=== PATIENT | female | born 1960 | race Caucasian/White ===

== ENCOUNTER 2016-11-24 17:11 | Inpatient (IN) | payer BC, OTHER ==
[~2016-11-24] VITALS: Ht 162.6 cm; Wt 104.2 kg
[~2016-11-24 17:11] MED LIST: DIOV80TA4 PO; FLON0.053; LEVO75TA3 PO; METO50CR PO; MONT10TA2 PO; NORC7.5T PO
[2016-11-24 17:23] VITALS: BP 79/51; PULSE 68; RESP 16; TEMP 97.4; O2SAT 98
[2016-11-24] MEDS ORDERED: SODIUM CHLOR 0.9% 1000 ML INJ 1,000 ML IV SCH (18:29)
[2016-11-24] MEDS ORDERED: ONDANSETRON HCL 4 MG/2 ML VIAL IVP ONE (18:30)
[2016-11-24] MEDS ORDERED: KETOROLAC TROMETHAMINE 30 MG/ML (IVP) VIAL IV PUSH ONE (18:30)
[2016-11-24] MEDS ORDERED: SODIUM CHLORIDE 0.9% FLUSH 10 ML FLUSH IV FLUSH PRN ×2 (18:30→23:00)
[2016-11-24 18:37] VITALS: O2SAT 96
[2016-11-24] MEDS ORDERED: NIFE30TA61 PO (18:46)
[2016-11-24] MEDS ORDERED: METO100T PO (18:46)
[2016-11-24] MEDS ORDERED: LEVE500T8 PO (18:46)
[2016-11-24] MEDS ORDERED: VALS1TAB65 PO (18:46)
[2016-11-24] MEDS ORDERED: LEVO112T2 PO (18:46)
[2016-11-24] MEDS ORDERED: CLON0.5T PO (18:46)
[2016-11-24] MEDS ORDERED: MONT10TA4 PO (18:46)
[2016-11-24 19:43] VITALS: BP 86/57; PULSE 64; RESP 18; O2SAT 98
[2016-11-24 20:06] LABS: AUTOMATED NEUTROPHIL # 6.4 TH/MM3 (1.8-7.7); BASOPHIL # 0.3 TH/MM3 (0-0.2); BASOPHIL % 3.3 % (0.0-2.0); EOSINOPHIL # 0.1 TH/MM3 (0-0.4); EOSINOPHIL % 0.9 % (0.0-4.0); HEMATOCRIT 33.3 % (35.0-46.0); LYMPH % 16.3 % (9.0-44.0); LYMPHOCYTE # 1.5 TH/MM3 (1.0-4.8); MEAN CELL VOLUME 96.5 FL (80.0-100.0); MEAN CORPUSCULAR HEMOGLOBIN 34.2 PG (27.0-34.0); MEAN CORPUSCULAR HGB CONC 35.4 % (32.0-36.0); MONO % 10.7 % (0.0-8.0); NEUT % 68.8 % (16.0-70.0); PLATELET COUNT 363 TH/MM3 (150-450); RED BLOOD COUNT 3.44 MIL/MM3 (4.00-5.30); RED CELL DISTRIBUTION WIDTH 14.8 % (11.6-17.2); WHITE BLOOD COUNT 9.3 TH/MM3 (4.0-11.0)
[2016-11-24 20:07] LABS: APTT (PATIENT) 23.5 SEC (24.3-30.1); HEMO FLAGS DIFF FINAL; PROTHROMBIN TIME - PATIENT 11.2 SEC (9.8-11.6)
[2016-11-24] MEDS ORDERED: ONDANSETRON HCL 4 MG/2 ML VIAL IV PUSH ONE (20:15)
[2016-11-24 20:47] VITALS: BP 95/65; PULSE 63; RESP 18; TEMP 97.7; O2SAT 100
[2016-11-24] MEDS ORDERED: SODIUM CHLOR 0.9% 1000 ML INJ 1,000 ML IV ONE (21:30)
--- NOTE | 2016-11-24 21:35 | RADRPT ---
EXAM DATE/TIME: 11/24/2016 21:05 [facility] COMPARISON: No previous studies available for comparison. INDICATIONS : Trauma to head three days ago. Fall. RADIATION DOSE: 59.63 CTDIvol (mGy) MEDICAL HISTORY : Hypertension. SURGICAL HISTORY : Appendectomy. Cholecystectomy.Tubal ligation.Hysterectomy. ENCOUNTER: Initial ACUITY: 3 days PAIN SCALE: 7/10 LOCATION: Bilateral occipital TECHNIQUE: Multiple contiguous axial images were obtained of the head. Using automated exposure control and adj ustment of the mA and/or kV according to patient size, radiation dose was kept as low as reasonably a chievable to obtain optimal diagnostic quality images. DICOM format image data is available electro nically for review and comparison. FINDINGS: CEREBRUM: The ventricles are normal for age. No evidence of midline shift, mass lesion, hemorrhage or acute in farction. No extra-axial fluid collections are seen. POSTERIOR FOSSA: The cerebellum and brainstem are intact. The 4th ventricle is midline. The cerebellopontine angle i s unremarkable. EXTRACRANIAL: The visualized portion of the orbits is intact. SKULL: The calvaria is intact. No evidence of skull fracture. CONCLUSION: Normal examination for a patient of this age. Rene Hanson MD on November 24, 2016 at 21:32 Board Certified Radiologist. This report was verified electronically.
[2016-11-24 21:39] VITALS: BP 98/58; PULSE 62; RESP 19; O2SAT 97
[2016-11-24 21:41] LABS: ALKALINE PHOSPHATASE 41 U/L (45-117); ALT (GPT) 86 U/L (10-53); ANION GAP 17 MEQ/L (5-15); AST (GOT) 62 U/L (15-37); BICARBONATE 16.6 MEQ/L (21.0-32.0); BLOOD UREA NITROGEN 14 MG/DL (7-18); CHLORIDE 80 MEQ/L (98-107); GLOMERULAR FILTRATION RATE 43 ML/MIN (>89); POTASSIUM 4.7 MEQ/L (3.5-5.1)
--- NOTE | 2016-11-24 21:43 | RADRPT ---
EXAM DATE/TIME: 11/24/2016 21:05 [facility] COMPARISON: No previous studies available for comparison. INDICATIONS : Trauma. Neck pain post fall three days ago. RADIATION DOSE: 26.43 CTDIvol (mGy) MEDICAL HISTORY : Hypertension. SURGICAL HISTORY : Tubal ligation. Appendectomy.Cholecystectomy.Hysterectomy. ENCOUNTER: Initial ACUITY: 3 days PAIN SCALE: 7/10 LOCATION: Bilateral neck TECHNIQUE: Volumetric scanning of the cervical spine was performed. Multiplanar reconstructions in the sagittal, coronal and oblique axial planes were performed. Using automated exposure control and adjustment o f the mA and/or kV according to patient size, radiation dose was kept as low as reasonably achievable to obtain optimal diagnostic quality images. DICOM format image data is available electronically f or review and comparison. FINDINGS: VERTEBRAE: Normal vertebral body height. ALIGNMENT: No evidence of subluxation. C2-C3: The bony spinal canal is normal in size. No evidence of disc bulge or herniation. The neural forami na are bilaterally patent. C3-C4: The bony spinal canal is normal in size. No evidence of disc bulge or herniation. The neural forami na are bilaterally patent. C4-C5: The bony spinal canal is normal in size. No evidence of disc bulge or herniation. The neural forami na are bilaterally patent. C5-C6: The bony spinal canal is normal in size. No evidence of disc bulge or herniation. The neural forami na are bilaterally patent. C6-C7: The bony spinal canal is normal in size. No evidence of disc bulge or herniation. The neural forami na are bilaterally patent. C7-T1: The bony spinal canal is normal in size. No evidence of disc bulge or herniation. The neural forami na are bilaterally patent. CONCLUSION: 1. No acute findings. Rene Hanson MD on November 24, 2016 at 21:39 Board Certified Radiologist. This report was verified electronically.
[2016-11-24 21:55] LABS: SODIUM (NA) 114 MEQ/L (136-145)
--- NOTE | 2016-11-24 22:09 | RADRPT ---
EXAM DATE/TIME: 11/24/2016 21:11 [facility] COMPARISON: No previous studies available for comparison. INDICATIONS : Trauma. Upper back pain post fall three days ago. RADIATION DOSE: 43.92 CTDIvol (mGy) ; Combined studies - Thoracic Spine/Lumbar Spine MEDICAL HISTORY : Hypertension. SURGICAL HISTORY : Appendectomy. Cholecystectomy.Hysterectomy. ENCOUNTER: Initial ACUITY: 3 days PAIN SCALE: 7/10 LOCATION: Bilateral upper back TECHNIQUE: Volumetric scanning of the thoracic spine was performed. Multiplanar reconstructions in the sagittal , coronal and oblique axial planes were performed. Using automated exposure control and adjustment o f the mA and/or kV according to patient size, radiation dose was kept as low as reasonably achievable to obtain optimal diagnostic quality images. DICOM format image data is available electronically f or review and comparison. FINDINGS: The vertebral bodies of the thoracic spine are in normal alignment without evidence of subluxation. Vertebral body height is maintained. No fractures are seen. T1-T2: Normal. T2-T3: The thecal sac has a normal diameter. No evidence of disc bulge or protrusion. T3-T4: The thecal sac has a normal diameter. No evidence of disc bulge or protrusion. T4-T5: The thecal sac has a normal diameter. No evidence of disc bulge or protrusion. T5-T6: The thecal sac has a normal diameter. No evidence of disc bulge or protrusion. T6-T7: The thecal sac has a normal diameter. No evidence of disc bulge or protrusion. T7-T8: The thecal sac has a normal diameter. No evidence of disc bulge or protrusion. T8-T9: The thecal sac has a normal diameter. No evidence of disc bulge or protrusion. T9-T10: The thecal sac has a normal diameter. No evidence of disc bulge or protrusion. T10-T11: The thecal sac has a normal diameter. No evidence of disc bulge or protrusion. T11-T12: The thecal sac has a normal diameter. No evidence of disc bulge or protrusion. T12-L1: The thecal sac has a normal diameter. No evidence of disc bulge or protrusion. CONCLUSION: 1. Mild degenerative disc disease. No acute bony abnormality. No canal stenosis. Rene Hanson MD on November 24, 2016 at 22:06 Board Certified Radiologist. This report was verified electronically.
--- NOTE | 2016-11-24 22:19 | RADRPT ---
EXAM DATE/TIME: 11/24/2016 21:11 [facility] COMPARISON: No previous studies available for comparison. INDICATIONS : Trauma. Lower back pain post fall three days ago. RADIATION DOSE: 43.92 CTDIvol (mGy) ; Combined studies - Thoracic Spine/Lumbar Spine MEDICAL HISTORY : Hypertension. SURGICAL HISTORY : Appendectomy. Cholecystectomy.Hysterectomy. ENCOUNTER: Initial ACUITY: 3 days PAIN SCALE: 7/10 LOCATION: Bilateral lower back TECHNIQUE: Volumetric scanning of the lumbar spine was performed. Multiplanar reconstructions in the sagittal, coronal and oblique axial planes were performed. Using automated exposure control and adjustment of the mA and/or kV according to patient size, radiation dose was kept as low as reasonably achievable t o obtain optimal diagnostic quality images. DICOM format image data is available electronically for review and comparison. FINDINGS: There is no acute fracture or spondylolisthesis. No significant abnormality in L1, L2 and L3-4. At L4-5 is a broad-based posterior disc protrusion and facet arthropathy, worse on the left side with a mild stenosis of the lateral recesses, left greater than right and foraminal stenosis, left greate r than right. At L5-S1 there is a mild posterior disc bulge or protrusion. No significant stenosis. CONCLUSION: 1. At L4-5 there is a broad-based posterior disc protrusion, worse on the left side with lateral rece ss stenosis and foraminal stenosis, left greater than right. Vacuum phenomenon present at the disc in terspace. No acute fracture or spondylolisthesis Rene Hanson MD on November 24, 2016 at 22:14 Board Certified Radiologist. This report was verified electronically.
--- NOTE | 2016-11-24 22:28 | PD ---
HPI Chief Complaint: Fall Time Seen by Provider: 18:21 Travel History International Travel<30 days: No Contact w/Intl Traveler<30days: No Traveled to known affect area: No History of Present Illness HPI Patient is a 56 year old female who comes in after a fall over the weekend. She says that her legs have been weak since last . She says that Wednesday she was trying to get up from the toilet when her legs gave out and she fell backwards and hit her head. She says she has pain all over. She thinks she passed out after hitting her head. She denies chest pain or SOB. She says she has had nausea and some vomiting. She denies any abdominal pain. She says she feels like she is likely dehydrated. She admits to drinking 2-3 drinks daily. PFSH Past Medical History Hx Anticoagulant Therapy: No Asthma: Yes Anxiety: Yes Cardiovascular Problems: Yes (on b/p meds) High Cholesterol: Yes (USED TO BE ON MEDICINE BUT MD STOPPED IT) Hypertension: Yes Respiratory: Yes (asthma) ?: Not Menopausal: Yes Tubal Ligation: Yes Past Surgical History Abdominal Surgery: Yes ("FIXED A BLOCKAGE IN MY INTESTINE") Appendectomy: Yes Cholecystectomy: Yes Genitourinary Surgery: Yes ("KIDNEYS TACKED UP WHEN I WAS A KID") Hysterectomy: Yes Other Surgery: Yes (SINUS SURGERY) Social History Alcohol Use: Yes (DAILY 2 DRINKS) Tobacco Use: No (QUIT 30 YEARS ) Substance Use: No Allergies-Medications (Allergen,Severity, Reaction): Coded Allergies: Enalapril (Verified Allergy, Severe, Swelling, 11/24/16) Latex (Verified Allergy, Severe, Swelling, 11/24/16) Lidocaine (Verified Allergy, Severe, states blue lips and chest pressure, 11/24/16) Morphine (Verified Allergy, Severe, PANIC ATTACK, 11/24/16) Penicillin (Verified Allergy, Severe, FACIAL SWELLING, 11/24/16) Reported Meds & Prescriptions Reported Meds & Active Scripts Active Reported Levetiracetam 500 Mg Tab 500 Mg PO TID Valsartan 160 Mg Tab 160 Mg PO DAILY Metoprolol Tartrate 100 Mg Tab 100 Mg PO BID Montelukast (Montelukast Sodium) 10 Mg Tab 10 Mg PO HS Levothyroxine (Levothyroxine Sodium) 112 Mcg Tab 112 Mcg PO DAILY Clonazepam 0.5 Mg Tab 0.5 Mg PO BID Nifedipine ER 24 HR (Nifedipine) 30 Mg Tab 30 Mg PO DAILY Review of Systems Except as stated in HPI: all other systems reviewed are Neg General / Constitutional: No: Fever, Chills Eyes: No: Blurred Vision HENT: Positive: Headaches Cardiovascular: No: Chest Pain or Discomfort Respiratory: No: Shortness of Breath Gastrointestinal: Positive: Nausea, Vomiting, No: Abdominal Pain Genitourinary: No: Dysuria, Incontinence Musculoskeletal: Positive: Pain, No: Edema Skin: No Rash, No Change in Pigmentation Neurologic: Positive: Weakness, No: Sensory Disturbance Physical Exam Narrative GENERAL: Awake and alert, in no acute distress. SKIN: Focused skin assessment warm/dry. HEAD: Atraumatic. Normocephalic. EYES: Pupils equal and round and reactive. No scleral icterus. Extraocular movements intact. ENT: No nasal bleeding or discharge. Mucous membranes pink and moist. NECK: Trachea midline. No JVD. CARDIOVASCULAR: Regular rate and rhythm. No murmur appreciated. RESPIRATORY: No accessory muscle use. Clear to auscultation. Breath sounds equal bilaterally. GASTROINTESTINAL: Abdomen soft, non-tender, nondistended. MUSCULOSKELETAL: No obvious deformities. No clubbing. No cyanosis. No edema. Tender to palpation of the entire spine. No step-off. NEUROLOGICAL: Awake and alert. No obvious cranial nerve deficits. Lower extremities with decreased strength bilaterally. Normal speech. No saddle anesthesia. PSYCHIATRIC: Appropriate mood and affect; insight and judgment normal. Data Data Last Documented VS Vital Signs Date Time Temp Pulse Resp B/P Pulse Ox O2 Delivery O2 Flow Rate FiO2 11/24/16 20:47 97.7 63 18 95/65 100 Room Air Orders Complete Blood Count With Diff (11/24/16 18:29) Comprehensive Metabolic Panel (11/24/16 18:29) Lipase (11/24/16 18:29) Prothrombin Time / Inr (Pt) (11/24/16 18:) Act Partial Throm Time (Ptt) (11/24/16 18:29) Urinalysis - C+S If Indicated (11/24/16 18:29) Ua Includes Microscopic (11/24/16 18:29) Iv Access Insert/Monitor (11/24/16 18:29) Ecg Monitoring (11/24/16 18:29) Oximetry (11/24/16 18:29) Ondansetron Inj (Zofran Inj) (11/24/16 18:30) Sodium Chlor 0.9% 1000 Ml Inj (Ns 1000 M (11/24/16 18:29) Sodium Chloride 0.9% Flush (Ns Flush) (11/24/16 18:30) Ct Brain W/O Iv Contrast(Rout) (11/24/16 ) Ct Cerv Spine W/O Contrast (11/24/16 ) Ct Thor Spine W/O Contrast (11/24/16 ) Ct Lumb Spine W/O Contrast (11/24/16 ) Alcohol (Ethanol) (11/24/16 18:29) Electrocardiogram (11/24/16 ) Troponin I (11/24/16 18:29) Ketorolac Inj (Toradol Inj) (11/24/16 18:30) Ondansetron Inj (Zofran Inj) (11/24/16 20:15) Sodium Chlor 0.9% 1000 Ml Inj (Ns 1000 M (11/24/16 21:30) Labs Laboratory Tests Test 11/24/16 11/24/16 19:43 20:57 White Blood Count 9.3 TH/MM3 Red Blood Count 3.44 MIL/MM3 Hemoglobin 11.8 GM/DL Hematocrit 33.3 % Mean Corpuscular Volume 96.5 FL Mean Corpuscular Hemoglobin 34.2 PG Mean Corpuscular Hemoglobin 35.4 % Concent Red Cell Distribution Width 14.8 % Platelet Count 363 TH/MM3 Mean Platelet Volume 9.5 FL Neutrophils (%) (Auto) 68.8 % Lymphocytes (%) (Auto) 16.3 % Monocytes (%) (Auto) 10.7 % Eosinophils (%) (Auto) 0.9 % Basophils (%) (Auto) 3.3 % Neutrophils # (Auto) 6.4 TH/MM3 Lymphocytes # (Auto) 1.5 TH/MM3 Monocytes # (Auto) 1.0 TH/MM3 Eosinophils # (Auto) 0.1 TH/MM3 Basophils # (Auto) 0.3 TH/MM3 CBC Comment DIFF FINAL Differential Comment Prothrombin Time 11.2 SEC Prothromb Time International 1.0 RATIO Ratio Activated Partial 23.5 SEC Thromboplast Time Sodium Level 114 MEQ/L Potassium Level 4.7 MEQ/L Chloride Level 80 MEQ/L Carbon Dioxide Level 16.6 MEQ/L Anion Gap 17 MEQ/L Blood Urea Nitrogen 14 MG/DL Creatinine 1.30 MG/DL Estimat Glomerular Filtration 43 ML/MIN Rate Random Glucose 90 MG/DL Calcium Level 8.9 MG/DL Total Bilirubin 1.0 MG/DL Aspartate Amino Transf 62 U/L (AST/SGOT) Alanine Aminotransferase 86 U/L (ALT/SGPT) Alkaline Phosphatase 41 U/L Troponin I LESS THAN 0.02 NG/ML Total Protein 6.4 GM/DL Albumin 3.5 GM/DL Lipase 750 U/L Ethyl Alcohol Level 38 MG/DL [facility] Medical Decision Making Medical Screen Exam Complete: Yes Emergency Medical Condition: Yes Medical Record Reviewed: Yes Interpretation(s) ECG shows normal sinus rhythm at 60 with first-degree AV block, no ST elevation or depression. Differential Diagnosis ICH versus cervical spine fracture versus thoracic spine fracture versus lumbar spine fracture versus dehydration versus electrolyte abnormality versus ACS Narrative Course Patient is a 56-year-old female comes in after a fall complaining of pain all over. Exam shows weakness in her bilateral lower extremities. IV established, labs sent. Labs show a sodium of 114 as well as a lipase of 750. Patient was given 2 L of normal saline. Given Toradol for pain as well as Zofran. Patient came in with a low blood pressure, she reports that it is always low and due to a seizure disorder she was placed on multiple blood pressure medications to keep her blood pressure low. Blood pressure did improve after IV fluids. CT of the head, C-spine, thoracic spine, lumbar spine show no acute abnormalities, no fracture. There is a disc protrusion at L5. Last 24 hours Impressions [address] Spine CT 11/24/16 0000 Signed Impressions: Service Date/Time: Thursday, November 24, 2016 21:11 - CONCLUSION: 1. Mild degenerative disc disease. No acute bony abnormality. No canal stenosis. Rene Hanson MD Lumbar Spine CT 11/24/16 0000 Signed Impressions: Service Date/Time: Thursday, November 24, 2016 21:11 - CONCLUSION: 1. At L4-5 there is a broad-based posterior disc protrusion, worse on the left side with lateral recess stenosis and foraminal stenosis, left greater than right. Vacuum phenomenon present at the disc interspace. No acute fracture or spondylolisthesis Rene Hanson MD Head CT 11/24/16 0000 Signed Impressions: Service Date/Time: Thursday, November 24, 2016 21:05 - CONCLUSION: Normal examination for a patient of this age. Rene Hanson MD Cervical Spine CT 11/24/16 0000 Signed Impressions: Service Date/Time: Thursday, November 24, 2016 21:05 - CONCLUSION: 1. No acute findings. Rene Hanson MD Patient will be admitted for management of her hyponatremia as well has pancreatitis. Diagnosis Primary Impression: Hyponatremia Additional Impressions: Weakness Pancreatitis Qualified Code: K85.90 - Acute pancreatitis, unspecified complication status, unspecified pancreatitis type Admitting Information Admitting Physician Requests: Admit Condition: Stable Jenni Hemphill MD Nov 24, 2016 22:28
[2016-11-24 22:43] VITALS: BP 89/70; PULSE 68; RESP 20; O2SAT 96
[2016-11-24] MEDS ORDERED: ACETAMINOPHEN/HYDROcodone 325 MG/5 MG TAB PO ONE (22:45)
[2016-11-24] MEDS ORDERED: NALOXONE HCL 0.4 MG/ML AMP IV PRN (23:00)
[2016-11-25] VITALS (8 sets, daily range): BP systolic 80–115; BP diastolic 49–71; PULSE 60–82; RESP 18–20; TEMP 97.4–99.2; O2SAT 94–99
[2016-11-25] MEDS: ONDANSETRON HCL 4 MG/2 ML VIAL IV PUSH PRN ×3 (04:52→18:11)
[2016-11-25] MEDS: SODIUM CHLOR 0.9% 1000 ML INJ 1,000 ML IV SCH ×3 (04:52→17:00)
[2016-11-25 05:18] LABS: AUTOMATED NEUTROPHIL # 6.8 TH/MM3 (1.8-7.7); BASOPHIL # 0.3 TH/MM3 (0-0.2); BASOPHIL % 3.5 % (0.0-2.0); EOSINOPHIL % 0.3 % (0.0-4.0); LYMPH % 9.9 % (9.0-44.0); LYMPHOCYTE # 0.9 TH/MM3 (1.0-4.8); MEAN CORPUSCULAR HEMOGLOBIN 32.9 PG (27.0-34.0); MEAN CORPUSCULAR HGB CONC 33.2 % (32.0-36.0); MONO % 8.6 % (0.0-8.0); NEUT % 77.7 % (16.0-70.0); PLATELET COUNT 240 TH/MM3 (150-450); RED BLOOD COUNT 3.54 MIL/MM3 (4.00-5.30); WHITE BLOOD COUNT 8.7 TH/MM3 (4.0-11.0)
[2016-11-25 05:20] LABS: BICARBONATE 19.4 MEQ/L (21.0-32.0); POTASSIUM 4.9 MEQ/L (3.5-5.1)
[2016-11-25 05:29] LABS: HEMO FLAGS DIFF FINAL
[2016-11-25] MEDS: SODIUM CHLORIDE 0.9% FLUSH 10 ML FLUSH IV FLUSH SCH ×2 (08:17→21:00)
--- NOTE | 2016-11-25 08:25 | EKG ---
Date Performed: 11/24/2016 Time Performed: 19:45:32 PTAGE: 56 years EKG: Sinus rhythm WITH FIRST DEGREE AV BLOCK LOW QRS VOLTAGE IN PRECORDIAL LEADS PATTERN CONSISTENT WITH PULMONARY DIS EASE INFERIOR MYOCARDIAL INFARCTION ABNORMAL ECG NO PREVIOUS TRACING DOCTOR: Humberto Khan Interpretating Date/Time 11/25/2016 08:23:39
[2016-11-25] MEDS: LEVOTHYROXINE SODIUM 112 MCG TAB PO SCH (12:12)
[2016-11-25] MEDS: levETIRAcetam 500 MG TAB PO SCH ×2 (12:12→17:00)
[2016-11-25 13:00] LABS: BICARBONATE 17.4 MEQ/L (21.0-32.0); POTASSIUM 4.6 MEQ/L (3.5-5.1)
[2016-11-25] MEDS ORDERED: ALBUTEROL SULFATE 90 MCG/ACT HFA 8 GM INHALER INH PRN (13:30)
--- NOTE | 2016-11-25 13:40 | HHI.HP ---
[facility] Service [facility] Primary Care Physician James Killian MD Admission Diagnosis hyponatremia, pancreatitis Diagnoses: Chief Complaint: Weakness Travel History International Travel<30 Days: No Contact w/Intl Traveler <30 Da: No Traveled to Known Affected Are: No History of Present Illness Patient is a 56-year-old female with a known history of alcohol dependency. Patient did come in after a fall and unable to get up. She was very weak and her legs haven't given out. She is assisting one on since and she has had increased pain. She did have increased alcohol intake over the last several days from her baseline of several drinks of vodka. She did have images done in the emergency room which showed degenerative thoracic and lumbar disease. CT of the head and cervical spine were normal. There are no acute fractures. Patient was found to also have hyponatremia. She has a history of seizures the last being 2 years ago. Alcohol level here was 38. She is hypotensive. She admits poor oral intake of food and other nutrition in lieu of alcohol the last several days. Patient is admitted to the hospital for further evaluation Review of Systems Constitutional: DENIES: Diaphoretic episodes, Fatigue, Fever, Weight gain, Weight loss, Chills, Dizziness, Change in appetite, Night Sweats Endocrine: DENIES: Abnorml menstrual pattern, Heat/cold intolerance, Polydipsia , Polyuria, Polyphagia Eyes: DENIES: Blurred vision, Diplopia, Eye inflammation, Eye pain, Vision loss , Photosensitivity, Double Vision Ears, nose, mouth, throat: DENIES: Tinnitus, Hearing loss, Vertigo, Nasal discharge, Oral lesions, Throat pain, Hoarseness, Ear Pain, Running Nose, Epistaxis, Sinus Pain, Toothache, Odynophagia Respiratory: DENIES: Apneas, Cough, Snoring, Wheezing, Hemoptysis, Sputum production, Shortness of breath Cardiovascular: DENIES: Chest pain, Palpitations, Syncope, Dyspnea on Exertion , PND, Lower Extremity Edema, Orthopnea, Claudication Gastrointestinal: DENIES: Abdominal pain, Black stools, Bloody stools, Constipation, Diarrhea, Nausea, Vomiting, Difficulty Swallowing, Anorexia Genitourinary: DENIES: Abnormal vaginal bleeding, Dysmenorrhea, Dyspareunia, Sexual dysfunction, Urinary frequency, Urinary incontinence, Urgency, Hematuria , Dysuria, Nocturia, Vaginal discharge Musculoskeletal: DENIES: Joint pain, Muscle aches, Stiffness, Joint Swelling, Back pain, Neck pain Integumentary: DENIES: Abnormal pigmentation, Pruritus, Rash, Nail changes, Breast masses, Breast skin changes, Nipple discharge Hematologic/lymphatic: DENIES: Bruising, Lymphadenopathy Immunologic/allergic: DENIES: Eczema, Urticaria Neurologic: COMPLAINS OF: Abnormal gait, Tremor, Poor Balance, DENIES: Headache, Localized weakness, Paresthesias, Seizures, Speech Problems Psychiatric: COMPLAINS OF: Anxiety, DENIES: Confusion, Mood changes, Depression, Hallucinations, Agitation, Suicidal Ideation, Homicidal Ideation, Delusions Past Family Social History Past Medical History Seizure Hypertension Asthma Anxiety Past Surgical History Intestinal surgery, sinus surgery, cholecystectomy, hysterectomy Reported Medications Reviewed in the medical record, also takes a Ventolin inhaler Allergies: Coded Allergies: Enalapril (Verified Allergy, Severe, Swelling, 11/24/16) Latex (Verified Allergy, Severe, Swelling, 11/24/16) Lidocaine (Verified Allergy, Severe, states blue lips and chest pressure, 11/24/16) Morphine (Verified Allergy, Severe, PANIC ATTACK, 11/24/16) Penicillin (Verified Allergy, Severe, FACIAL SWELLING, 11/24/16) Active Ordered Medications Reviewed in the medical record Family History Father from colon cancer Mother is alive and well Social History Patient denies tobacco, drinks 3 or 4 whiskey and vodka drinks daily Physical Exam Vital Signs Vital Signs Date Time Temp Pulse Resp B/P Pulse Ox O2 Delivery O2 Flow Rate FiO2 11/25/16 12:00 97.7 78 20 97/53 96 11/25/16 09:03 97.5 81 18 114/65 98 11/25/16 08:15 94 Room Air 11/25/16 07:21 94 Room Air 11/25/16 07:21 98.2 76 18 106/64 94 Room Air 11/25/16 04:50 99.2 72 18 115/71 96 Room Air 11/25/16 00:35 60 18 82/49 98 Room Air 11/24/16 22:43 68 20 89/70 96 Room Air 11/24/16 21:39 62 19 98/58 97 Room Air 11/24/16 20:47 97.7 63 18 95/65 100 Room Air 11/24/16 19:43 64 18 86/57 98 Room Air 11/24/16 18:37 96 Room Air 11/24/16 17:23 97.4 68 16 79/51 98 Physical Exam GENERAL: This is a well-nourished, well-developed patient, weak SKIN: No rashes, ecchymoses or lesions. Cool and dry. HEAD: Atraumatic. Normocephalic. No temporal or scalp tenderness. EYES: Pupils equal round and reactive. Extraocular motions intact. No scleral icterus. No injection or drainage. ENT: Nose without bleeding, purulent drainage or septal hematoma. Throat without erythema, tonsillar hypertrophy or exudate. Uvula midline. Airway patent. NECK: Trachea midline. No JVD or lymphadenopathy. Supple, nontender, no meningeal signs. CARDIOVASCULAR: Regular rate and rhythm without murmurs, gallops, or rubs. RESPIRATORY: Clear to auscultation. Breath sounds equal bilaterally. No wheezes , rales, or rhonchi. GASTROINTESTINAL: Abdomen soft, non-tender, nondistended. No hepato-splenomegaly , or palpable masses. No guarding. MUSCULOSKELETAL: Extremities without clubbing, cyanosis, or edema. No joint tenderness, effusion, or edema noted. No calf tenderness. Negative Homans sign bilaterally. NEUROLOGICAL: Awake and alert. Cranial nerves II through XII intact. Motor and sensory grossly within normal limits. 3 out of 5 muscle strength in all muscle groups. Normal speech. Laboratory Laboratory Tests Test 11/24/16 11/24/16 11/25/16 11/25/16 19:43 20:57 04:45 12:15 White Blood Count 9.3 8.7 Red Blood Count 3.44 3.54 Hemoglobin 11.8 11.6 Hematocrit 33.3 35.0 Mean Corpuscular Volume 96.5 99.0 Mean Corpuscular Hemoglobin 34.2 32.9 Mean Corpuscular Hemoglobin 35.4 33.2 Concent Red Cell Distribution Width 14.8 14.0 Platelet Count 363 240 Mean Platelet Volume 9.5 7.8 Neutrophils (%) (Auto) 68.8 77.7 Lymphocytes (%) (Auto) 16.3 9.9 Monocytes (%) (Auto) 10.7 8.6 Eosinophils (%) (Auto) 0.9 0.3 Basophils (%) (Auto) 3.3 3.5 Neutrophils # (Auto) 6.4 6.8 Lymphocytes # (Auto) 1.5 0.9 Monocytes # (Auto) 1.0 0.7 Eosinophils # (Auto) 0.1 0.0 Basophils # (Auto) 0.3 0.3 CBC Comment DIFF FINAL DIFF FINAL Differential Comment Prothrombin Time 11.2 Prothromb Time International 1.0 Ratio Activated Partial 23.5 Thromboplast Time Sodium Level 114 117 119 Potassium Level 4.7 4.9 4.6 Chloride Level 80 82 85 Carbon Dioxide Level 16.6 19.4 17.4 Anion Gap 17 16 17 Blood Urea Nitrogen 14 14 12 Creatinine 1.30 1.20 1.10 Estimat Glomerular Filtration 43 47 52 Rate Random Glucose 90 77 86 Calcium Level 8.9 8.9 8.6 Total Bilirubin 1.0 Aspartate Amino Transf 62 (AST/SGOT) Alanine Aminotransferase 86 (ALT/SGPT) Alkaline Phosphatase 41 Troponin I LESS THAN 0.02 Total Protein 6.4 Albumin 3.5 Lipase 750 Ethyl Alcohol Level 38 Result Diagram: 11/25/16 0445 11/25/16 1215 Imaging Last Impressions Thoracic Spine CT 11/24/16 0000 Signed Impressions: Service Date/Time: Thursday, November 24, 2016 21:11 - CONCLUSION: 1. Mild degenerative disc disease. No acute bony abnormality. No canal stenosis. Rene Hanson MD Lumbar Spine CT 11/24/16 0000 Signed Impressions: Service Date/Time: Thursday, November 24, 2016 21:11 - CONCLUSION: 1. At L4-5 there is a broad-based posterior disc protrusion, worse on the left side with lateral recess stenosis and foraminal stenosis, left greater than right. Vacuum phenomenon present at the disc interspace. No acute fracture or spondylolisthesis Rene Hanson MD Head CT 11/24/16 0000 Signed Impressions: Service Date/Time: Thursday, November 24, 2016 21:05 - CONCLUSION: Normal examination for a patient of this age. Rene Hanson MD Cervical Spine CT 11/24/16 Signed Impressions: Service Date/Time: Thursday, November 24, 2016 21:05 - CONCLUSION: 1. No acute findings. Rene Hanson MD Assessment and Plan Problem List: (1) Weakness ICD Code: R53.1 Status: Acute Plan: Likely multifactorial due to chronic alcoholism and hyponatremia. Patient has degenerative back disease which may be aggravated due to her electrolyte imbalance We'll continue with physical therapy and correcting her electrolyte imbalance (2) Hyponatremia ICD Code: E87.1 Status: Acute Plan: Severe with a sodium level of 114 on admission, continue IV hydration Nutritional support (3) EtOH dependence ICD Code: F10.20 Status: Acute Plan: Ativan as needed Patient takes Klonopin We'll add Librium if needed (4) Acidosis ICD Code: E87.2 Status: Acute Plan: High anion gap Likely metabolic due to alcohol We'll check lactic acid and salicylates, follow trend with IV hydration (5) Acute kidney injury ICD Code: N17.9 Status: Acute Plan: Likely due to dehydration, continue with IV fluids (6) Hypotension ICD Code: I95.9 Status: Acute Plan: Likely due to dehydration, hold blood pressure medications for now continue with IV hydration Assessment and Plan Plan of care to be determined by Hospital course Code Status Full code Discussed Condition With Patient, Sarah LOWE Physician Certification 2 Midnight Certification Type: Admission for Inpatient Services Order for Inpatient Services The services are ordered in accordance with Medicare regulations or non- Medicare payer requirements, as applicable. In the case of services not specified as inpatient-only, they are appropriately provided as inpatient services in accordance with the 2-midnight benchmark. Estimated LOS (days): 3 3 days is the estimated time the patient will need to remain in the hospital, assuming treatment plan goals are met and no additional complications. Post-Hospital Plan: Cecelia Godoy MD Nov 25, 2016 13:40
[2016-11-25] MEDS ORDERED: LORazepam 2 MG/ML VIAL IV PUSH PRN (13:45)
[2016-11-25 14:17] LABS: BLOOD GAS BASE EXCESS -8.3 mmol/L (-2-2); BLOOD GAS CARBOXYHEMOGLOBIN 1.5 % (0-4); BLOOD GAS HCO3 16 mmol/L (22-26); BLOOD GAS METHEMOGLOBIN 1.4 % (0-2); BLOOD GAS O2 HGB SATURATION 90 % (90-100); BLOOD GAS OXYGEN CONTENT 12.3 Vol % (12.0-20.0); BLOOD GAS PCO2 32 mmHg (38-42); BLOOD GAS PO2 67 mmHg (61-120); BLOOD GAS TOTAL HGB 9.7 G/DL (12.0-16.0)
[2016-11-25 14:18] LABS: CRITICAL VALUE YES; DRAW SITE RT RADIAL; FIO2 21 %; NUMBER OF ARTERIAL PUNCTURES 1; STAT YES; ULNAR PULSE PRESENT
[2016-11-25 14:43] LABS: BICARBONATE 17.6 MEQ/L (21.0-32.0); POTASSIUM 4.2 MEQ/L (3.5-5.1)
[2016-11-25] MEDS: MONTELUKAST SODIUM 10 MG TAB PO SCH (21:58)
[2016-11-25] MEDS: clonazePAM 0.5 MG TAB PO SCH (21:58)
[2016-11-25 22:48] LABS: BLOOD, URINE SMALL (NEG); GLUCOSE,URINE NEG (NEG); KETONE, URINE 15 mg/dL (NEG); NITRITE,URINE NEG (NEG)
[2016-11-25 22:54] LABS: BACTERIA, URINE FEW /hpf; RBC, URINE 0-3 /hpf (0-3); SQUAMOUS EPITHELIAL CELL URINE 0-5 /hpf (0-5); URINE COLOR AMBER (YELLW/STRAW)
[2016-11-25 22:55] LABS: COMMENT (UR) CULT NOT INDICATED; CULTURE IF INDICATED CULT NOT INDICATED
[2016-11-26] VITALS: BP 108/61; PULSE 84; RESP 16; TEMP 97.8; O2SAT 92
[2016-11-26 01:58] LABS: BICARBONATE 20.2 MEQ/L (21.0-32.0); POTASSIUM 4.3 MEQ/L (3.5-5.1)
[2016-11-26] MEDS: LEVOTHYROXINE SODIUM 112 MCG TAB PO SCH (04:47)
[2016-11-26] MEDS: ONDANSETRON HCL 4 MG/2 ML VIAL IV PUSH PRN ×3 (04:48→20:16)
[2016-11-26] MEDS: clonazePAM 0.5 MG TAB PO SCH (08:24)
[2016-11-26] MEDS: SODIUM CHLOR 0.9% 1000 ML INJ 1,000 ML IV SCH ×2 (08:24→20:17)
[2016-11-26] MEDS: SODIUM CHLORIDE 0.9% FLUSH 10 ML FLUSH IV FLUSH SCH ×2 (08:24→20:16)
[2016-11-26] MEDS: levETIRAcetam 500 MG TAB PO SCH ×3 (08:24→17:17)
[2016-11-26 08:29] VITALS: BP 99/52; PULSE 96; RESP 19; TEMP 96.8; O2SAT 97
[2016-11-26 08:47] LABS: BICARBONATE 20.5 MEQ/L (21.0-32.0)
[2016-11-26 12:20] VITALS: BP 77/44; PULSE 95; RESP 19; TEMP 96.4; O2SAT 96
--- NOTE | 2016-11-26 12:57 | HHI.PR ---
Subjective Remarks Patient seen in follow up for Fall, weakness and hyponatremia. Sodium improved today BP dropped significantly after Klonopin, Patient denies dizziness and drowsiness Request pain meds for her back. Objective Vitals Vital Signs Date Time Temp Pulse Resp B/P Pulse Ox O2 Delivery O2 Flow Rate FiO2 11/26/16 12:20 96.4 95 19 77/44 96 11/26/16 08:29 96.8 96 19 99/52 97 11/26/16 00:00 97.8 84 16 108/61 92 11/25/16 20:00 98.5 80 18 80/60 99 11/25/16 16:26 18 11/25/16 16:00 97.4 82 20 94/54 96 I/O 11/25/16 11/25/16 11/25/16 11/26/16 11/26/16 11/26/16 06:59 14:59 22:59 06:59 14:59 22:59 Intake Total 200 ml 490 ml 240 ml 240 ml Balance 200 ml 490 ml 240 ml 240 ml Intake Oral 200 ml 490 ml 240 ml 240 ml # Voids 1 3 Result Diagram: 11/25/16 0445 11/26/16 0805 Imaging Last Impressions Thoracic Spine CT 11/24/16 0000 Signed Impressions: Service Date/Time: Thursday, November 24, 2016 21:11 - CONCLUSION: 1. Mild degenerative disc disease. No acute bony abnormality. No canal stenosis. Rene Hanson MD Lumbar Spine CT 11/24/16 0000 Signed Impressions: Service Date/Time: Thursday, November 24, 2016 21:11 - CONCLUSION: 1. At L4-5 there is a broad-based posterior disc protrusion, worse on the left side with lateral recess stenosis and foraminal stenosis, left greater than right. Vacuum phenomenon present at the disc interspace. No acute fracture or spondylolisthesis Rene Hanson MD Head CT 11/24/16 0000 Signed Impressions: Service Date/Time: Thursday, November 24, 2016 21:05 - CONCLUSION: Normal examination for a patient of this age. Rene Hanson MD Cervical Spine CT 11/24/16 0000 Signed Impressions: Service Date/Time: Thursday, November 24, 2016 21:05 - CONCLUSION: 1. No acute findings. Rene Hanson MD Objective Remarks GENERAL: This is a well-nourished, well-developed patient, complaining of back pain CARDIOVASCULAR: Regular rate and rhythm without murmurs, gallops, or rubs. RESPIRATORY: Clear to auscultation. Breath sounds equal bilaterally. No wheezes , rales, or rhonchi. GASTROINTESTINAL: Abdomen soft, non-tender, nondistended. Normal active bowel sounds MUSCULOSKELETAL: flank tender, no bruise Extremities without clubbing, cyanosis , or edema. NEURO: Alert & Oriented x4 to person, place, time, situation. Moves all ext x4 Procedures none A/P Problem List: (1) Weakness ICD Code: R53.1 Status: Acute Plan: Improved Likely multifactorial due to chronic alcoholism and hyponatremia. Patient also has degenerative back disease which may be aggravated due to her electrolyte imbalance Lumbar CT shows At L4-5 there is a broad-based posterior disc protrusion, worse on the left side with lateral recess stenosis and foraminal stenosis, left greater than right. Which merits outpatient follow up as patient is ambulatory and currently benefiting from medical management We'll continue with physical therapy and correcting her electrolyte imbalance (2) Hyponatremia ICD Code: E87.1 Status: Acute Plan: Better Severe with a sodium level of 114 on admission, continue IV hydration Nutritional support (3) EtOH dependence ICD Code: F10.20 Status: Acute Plan: Ativan as needed Patient takes Klonopin We'll add Librium if needed (4) Acidosis ICD Code: E87.2 Status: Resolved Plan: High anion gap Likely metabolic due to alcohol lactic, salicylates neg (5) Acute kidney injury ICD Code: N17.9 Status: Acute Plan: Likely due to dehydration, continue with IV fluids ptn complains of worsening back pain also (may be musculoskeletal), Renal U/S pending UA neg likely CKD from medical renal disease and HTN (6) Hypotension ICD Code: I95.9 Status: Acute Plan: Likely due to dehydration, hold blood pressure medications and benzos for now continue with IV hydration BP dropped into the 70's systolic today after Klonopin cbc pending to check HG Cecelia Ratliff MD Nov 26, 2016 12:57
--- NOTE | 2016-11-26 15:15 | RADRPT ---
EXAM DATE/TIME: 11/26/2016 14:50 [place] COMPARISON: No previous studies available for comparison. INDICATIONS : Abnormal labs. MEDICAL HISTORY : Hypercholesterolemia. Hypertension. Thyroid disease. Head trauma. Migraine. Arthritis. ETOH abuse. Acute kidney injury. Hyponatremia. SURGICAL HISTORY : Appendectomy. Cholecystectomy. Hysterectomy. Intestinal surgery to repair blockage. Tubal ligation. K idney surgery. Sinus surgery. ENCOUNTER: Initial ACUITY: 1 day PAIN SCORE: 0/10 LOCATION: Bilateral flank MEASUREMENTS: RIGHT KIDNEY: 9.3 x 5.4 x 5.3 cm LEFT KIDNEY: 9.7 x 4.4 x 4.1 cm FINDINGS: RIGHT KIDNEY: Renal cortex is normal in thickness and echotexture. No hydronephrosis, stone, or mass. LEFT KIDNEY: Renal cortex is normal in thickness and echotexture. No hydronephrosis, stone, or mass. BLADDER: Within normal limits given the degree of distension. CONCLUSION: Normal examination for a patient of this age. Alejo Arauz MD on November 26, 2016 at 15:12 Board Certified Radiologist. This report was verified electronically.
[2016-11-26 16:05] LABS: HEMATOCRIT 28.1 % (35.0-46.0); MEAN CELL VOLUME 101.8 FL (80.0-100.0); MEAN CORPUSCULAR HEMOGLOBIN 33.4 PG (27.0-34.0); MEAN CORPUSCULAR HGB CONC 32.8 % (32.0-36.0); PLATELET COUNT 175 TH/MM3 (150-450); RED BLOOD COUNT 2.76 MIL/MM3 (4.00-5.30); RED CELL DISTRIBUTION WIDTH 14.9 % (11.6-17.2)
[2016-11-26 16:06] LABS: HEMO FLAGS AUTO DIFF
[2016-11-26 16:25] VITALS: BP 91/48; PULSE 89; RESP 19; TEMP 97.6; O2SAT 100
[2016-11-26 16:32] LABS: BANDS 1 % (0-6); EOSINOPHILS 2 % (0-4); PLATELET ESTIMATE SMEAR NORMAL (NORMAL); PLATELET MORPHOLOGY NORMAL (NORMAL); POLYS (SEG NEUTROPHILS) 71 % (16-70); SCAN/DIFF FINAL DIFF MANUAL; WBC DIFF SAMPLE 100
[2016-11-26 20:00] VITALS: BP 110/60; PULSE 80; RESP 18; TEMP 98.3; O2SAT 94
[2016-11-26] MEDS: MONTELUKAST SODIUM 10 MG TAB PO SCH (20:15)
[2016-11-27] VITALS (7 sets, daily range): BP systolic 80–115; BP diastolic 39–70; PULSE 80–96; RESP 16–22; TEMP 97–98.3; O2SAT 94–100
[2016-11-27] MEDS: LEVOTHYROXINE SODIUM 112 MCG TAB PO SCH (06:18)
[2016-11-27] MEDS: ONDANSETRON HCL 4 MG/2 ML VIAL IV PUSH PRN ×4 (06:19→23:35)
[2016-11-27] MEDS: SODIUM CHLOR 0.9% 1000 ML INJ 1,000 ML IV SCH ×3 (06:45→23:35)
[2016-11-27 08:44] LABS: AUTOMATED NEUTROPHIL # 4.6 TH/MM3 (1.8-7.7); BASOPHIL % 0.6 % (0.0-2.0); EOSINOPHIL # 0.1 TH/MM3 (0-0.4); EOSINOPHIL % 2.2 % (0.0-4.0); HEMATOCRIT 27.5 % (35.0-46.0); HEMO FLAGS DIFF FINAL; LYMPHOCYTE # 0.7 TH/MM3 (1.0-4.8); MEAN CELL VOLUME 100.7 FL (80.0-100.0); MEAN CORPUSCULAR HEMOGLOBIN 33.5 PG (27.0-34.0); MEAN CORPUSCULAR HGB CONC 33.2 % (32.0-36.0); MONO % 11.4 % (0.0-8.0); NEUT % 73.8 % (16.0-70.0); PLATELET COUNT 200 TH/MM3 (150-450); RED BLOOD COUNT 2.73 MIL/MM3 (4.00-5.30); RED CELL DISTRIBUTION WIDTH 14.8 % (11.6-17.2); WHITE BLOOD COUNT 6.1 TH/MM3 (4.0-11.0)
[2016-11-27] MEDS: SODIUM CHLORIDE 0.9% FLUSH 10 ML FLUSH IV FLUSH SCH ×2 (08:52→21:00)
[2016-11-27] MEDS: levETIRAcetam 500 MG TAB PO SCH ×3 (08:52→17:08)
[2016-11-27 09:52] LABS: BICARBONATE 22.4 MEQ/L (21.0-32.0); POTASSIUM 3.8 MEQ/L (3.5-5.1)
--- NOTE | 2016-11-27 14:17 | HHI.PR ---
Subjective Remarks Follow-up hypotension/hyponatremia/generalized weakness 11/27/16-patient seen and examined, complains of back pain, improved weakness. BP improving as well as hyponatremia Objective Vitals Vital Signs Date Time Temp Pulse Resp B/P Pulse Ox O2 Delivery O2 Flow Rate FiO2 11/27/16 13:01 18 11/27/16 12:31 98.1 96 19 100 11/27/16 12:00 100/70 11/27/16 08:22 97.4 92 19 100/39 100 11/27/16 04:00 98.3 80 20 110/60 94 11/27/16 00:00 98.3 80 16 80/50 94 11/26/16 20:00 98.3 80 18 110/60 94 11/26/16 16:25 97.6 89 19 91/48 100 I/O 11/26/16 11/26/16 11/26/16 11/27/16 11/27/16 11/27/16 06:59 14:59 22:59 06:59 14:59 22:59 Intake Total 240 ml 3040 ml 911 ml 300 ml Output Total 650 ml Balance 240 ml 2390 ml 911 ml 300 ml Intake Oral 240 ml 750 ml 300 ml IV Total 2290 ml 911 ml Output Urine Total 650 ml # Voids 3 Result Diagram: 11/27/1620 11/27/16819 Imaging Last Impressions Renal Ultrasound 11/26/16 0000 Signed Impressions: Service Date/Time: November 14:50 - CONCLUSION: Normal examination for a patient of this age. Alejo Arauz MD Thoracic Spine CT 11/24/16 0000 Signed Impressions: Service Date/Time: Thursday, November 24, 2016 21:11 - CONCLUSION: 1. Mild degenerative disc disease. No acute bony abnormality. No canal stenosis. Rene Hanson MD Lumbar Spine CT 11/24/16 0000 Signed Impressions: Service Date/Time: Thursday, November 24, 2016 21:11 - CONCLUSION: 1. At L4-5 there is a broad-based posterior disc protrusion, worse on the left side with lateral recess stenosis and foraminal stenosis, left greater than right. Vacuum phenomenon present at the disc interspace. No acute fracture or spondylolisthesis Rene Hanson MD Head CT 11/24/16 0000 Signed Impressions: Service Date/Time: Thursday, November 24, 2016 21:05 - CONCLUSION: Normal examination for a patient of this age. Rene Hanson MD Cervical Spine CT 11/24/16 0000 Signed Impressions: Service Date/Time: Thursday, November 24, 2016 21:05 - CONCLUSION: 1. No acute findings. Rene Hanson MD Objective Remarks GENERAL: NAD SKIN: Warm and dry. HEAD: Normocephalic. EYES: No scleral icterus. No injection or drainage. NECK: Supple, trachea midline. No JVD or lymphadenopathy. CARDIOVASCULAR: Regular rate and rhythm without murmurs, gallops, or rubs. RESPIRATORY: Breath sounds equal bilaterally. No accessory muscle use. GASTROINTESTINAL: Abdomen soft, non-tender, nondistended. MUSCULOSKELETAL: No cyanosis, or edema. BACK: Nontender without obvious deformity. No CVA tenderness. Procedures none A/P Problem List: (1) Weakness ICD Code: R53.1 Status: Acute (2) Hyponatremia ICD Code: E87.1 Status: Acute (3) EtOH dependence ICD Code: F10.20 Status: Acute (4) Acidosis ICD Code: E87.2 Status: Resolved (5) Acute kidney injury ICD Code: N17.9 Status: Acute (6) Hypotension ICD Code: I95.9 Status: Acute Assessment and Plan 56-year-old female with Hypotension Improving with IV fluid hydration Hyponatremia Likely secondary to Beer Potomani Improving with gentle IV fluid hydration Monitor electrolyte Acute renal failure Prerenal, secondary to dehydration Renal indices improving with IV fluid hydration History of alcohol abuse Consult against alcohol abuse Continue ANDREY eagle protocol Metabolic Acidosis Resolved Hypothyroidism Continue with Synthroid History of seizure disorder Currently stable on Keppra, monitor level DVT prophylaxis: Bilateral SCDs Discharge Planning Likely discharge 11/28/16 Shoaib Escalante MD Nov 27, 2016 14:17
[2016-11-27] MEDS: MONTELUKAST SODIUM 10 MG TAB PO SCH (21:51)
[2016-11-28 00:37] VITALS: BP 100/69; PULSE 87; RESP 18; TEMP 96.9; O2SAT 95
[2016-11-28] MEDS: LEVOTHYROXINE SODIUM 112 MCG TAB PO SCH (06:40)
[2016-11-28] MEDS: ONDANSETRON HCL 4 MG/2 ML VIAL IV PUSH PRN (06:41)
[2016-11-28 07:37] LABS: HEMATOCRIT 26.6 % (35.0-46.0); MEAN CELL VOLUME 100.5 FL (80.0-100.0); MEAN CORPUSCULAR HEMOGLOBIN 33.6 PG (27.0-34.0); MEAN CORPUSCULAR HGB CONC 33.5 % (32.0-36.0); PLATELET COUNT 203 TH/MM3 (150-450); RED BLOOD COUNT 2.65 MIL/MM3 (4.00-5.30); RED CELL DISTRIBUTION WIDTH 14.2 % (11.6-17.2); WHITE BLOOD COUNT 7.2 TH/MM3 (4.0-11.0)
[2016-11-28 07:39] LABS: HEMO FLAGS AUTO DIFF
[2016-11-28 08:00] VITALS: BP 107/78; PULSE 91; RESP 18; TEMP 97.1; O2SAT 97
[2016-11-28 08:01] LABS: POTASSIUM 3.9 MEQ/L (3.5-5.1)
[2016-11-28 08:06] LABS: BICARBONATE 23.9 MEQ/L (21.0-32.0)
[2016-11-28 08:10] LABS: BANDS 5 % (0-6); BASOPHILS 1 % (0-2); EOSINOPHILS 1 % (0-4); NEUTROPHIL # MANUAL DIFF 5.8 TH/MM3 (1.8-7.7); POLYS (SEG NEUTROPHILS) 76 % (16-70); WBC DIFF SAMPLE 100
[2016-11-28 08:11] LABS: PLATELET ESTIMATE SMEAR NORMAL (NORMAL); PLATELET MORPHOLOGY NORMAL (NORMAL); SCAN/DIFF FINAL DIFF MANUAL
[2016-11-28] MEDS: SODIUM CHLORIDE 0.9% FLUSH 10 ML FLUSH IV FLUSH SCH (09:33)
[2016-11-28] MEDS: levETIRAcetam 500 MG TAB PO SCH (09:33)
--- NOTE | 2016-11-28 11:54 | HHI.PR ---
Subjective Remarks Follow-up hypotension/hyponatremia/generalized weakness 11/27/16-patient seen and examined, complains of back pain, improved weakness. BP improving as well as hyponatremia 11/28/16-patient seen and examined, no acute event overnight, patient states she is ready for discharge home. Objective Vitals Vital Signs Date Time Temp Pulse Resp B/P Pulse Ox O2 Delivery O2 Flow Rate FiO2 11/28/16 08:00 97.1 91 18 107/78 97 11/28/16 00:37 96.9 87 18 100/69 95 11/27/16 20:38 98.2 91 22 102/64 96 11/27/16 18:08 18 11/27/16 16:25 97.0 92 19 115/62 100 11/27/16 12:31 98.1 96 19 100 11/27/16 12:00 100/70 I/O 11/27/16 11/27/16 11/27/16 11/28/16 11/28/16 11/28/16 06:59 14:59 22:59 06:59 14:59 22:59 Intake Total 911 ml 300 ml 2836 ml 843 ml Balance 911 ml 300 ml 2836 ml 843 ml Intake Oral 300 ml 200 ml IV Total 911 ml 2636 ml 843 ml # Voids 3 2 Result Diagram: 11/28/16 0711 11/28/16710 Imaging Last Impressions Renal Ultrasound 11/26/16 0000 Signed Impressions: Service Date/Time: November 14:50 - CONCLUSION: Normal examination for a patient of this age. Alejo Arauz MD Thoracic Spine CT 11/24/16 0000 Signed Impressions: Service Date/Time: Thursday, November 24, 2016 21:11 - CONCLUSION: 1. Mild degenerative disc disease. No acute bony abnormality. No canal stenosis. Rene Hanson MD Lumbar Spine CT 11/24/16 0000 Signed Impressions: Service Date/Time: Thursday, November 24, 2016 21:11 - CONCLUSION: 1. At L4-5 there is a broad-based posterior disc protrusion, worse on the left side with lateral recess stenosis and foraminal stenosis, left greater than right. Vacuum phenomenon present at the disc interspace. No acute fracture or spondylolisthesis Rene Hanson MD Head CT 11/24/16 0000 Signed Impressions: Service Date/Time: Thursday, November 24, 2016 21:05 - CONCLUSION: Normal examination for a patient of this age. Rene Hanson MD Cervical Spine CT 11/24/16 0000 Signed Impressions: Service Date/Time: Thursday, November 24, 2016 21:05 - CONCLUSION: 1. No acute findings. Rene Hanson MD Objective Remarks GENERAL: NAD SKIN: Warm and dry. HEAD: Normocephalic. EYES: No scleral icterus. No injection or drainage. NECK: Supple, trachea midline. No JVD or lymphadenopathy. CARDIOVASCULAR: Regular rate and rhythm without murmurs, gallops, or rubs. RESPIRATORY: Breath sounds equal bilaterally. No accessory muscle use. GASTROINTESTINAL: Abdomen soft, non-tender, nondistended. MUSCULOSKELETAL: No cyanosis, or edema. BACK: Nontender without obvious deformity. No CVA tenderness. Procedures none A/P Problem List: (1) Weakness ICD Code: R53.1 Status: Acute (2) Hyponatremia ICD Code: E87.1 Status: Acute (3) EtOH dependence ICD Code: F10.20 Status: Acute (4) Acidosis ICD Code: E87.2 Status: Resolved (5) Acute kidney injury ICD Code: N17.9 Status: Acute (6) Hypotension ICD Code: I95.9 Status: Acute Assessment and Plan 56-year-old female with Hypotension Improved with IV fluid hydration Continue to hold all oral antihypertensive medications Hyponatremia Likely secondary to Beer Potomani Improved with gentle IV fluid hydration Monitor electrolyte Acute renal failure-resolved Prerenal, secondary to dehydration Renal indices improving with IV fluid hydration History of alcohol abuse Consult against alcohol abuse Continue ANDREY eagle protocol Metabolic Acidosis Resolved Hypothyroidism Continue with Synthroid History of seizure disorder Currently stable on Keppra, monitor level DVT prophylaxis: Bilateral SCDs Discharge Planning Likely discharge 11/28/16 Shoaib Escalante MD Nov 28, 2016 11:54
[2016-11-28] MEDS ORDERED: ZOFR4TAB PO (11:56)
--- NOTE | 2016-11-28 11:59 | HHI.DS ---
Discharge Summary Admission Date Nov 24, 2016 at 23:00 Discharge Date: Nov 28, 2016 Admitting Diagnosis hyponatremia, pancreatitis (1) Weakness ICD Code: R53.1 (2) Hyponatremia ICD Code: E87.1 (3) EtOH dependence ICD Code: F10.20 (4) Acidosis ICD Code: E87.2 (5) Acute kidney injury ICD Code: N17.9 (6) Hypotension ICD Code: I95.9 Procedures none Brief History - From Admission Patient is a 56-year-old female with a known history of alcohol dependency. Patient did come in after a fall and unable to get up. She was very weak and her legs haven't given out. She is assisting one on since and she has had increased pain. She did have increased alcohol intake over the last several days from her baseline of several drinks of vodka. She did have images done in the emergency room which showed degenerative thoracic and lumbar disease. CT of the head and cervical spine were normal. There are no acute fractures. Patient was found to also have hyponatremia. She has a history of seizures the last being 2 years ago. Alcohol level here was 38. She is hypotensive. She admits poor oral intake of food and other nutrition in lieu of alcohol the last several days. Patient is admitted to the hospital for further evaluation CBC/BMP: 11/28/16 0711 11/28/16 0711 Significant Findings Laboratory Tests Test 11/25/16 11/25/16 11/25/16 11/25/16 12:15 13:53 14:10 22:29 Sodium Level 119 MEQ/L 118 MEQ/L (136-145) (136-145) Chloride Level 85 MEQ/L 84 MEQ/L (98-107) (98-107) Carbon Dioxide Level 17.4 MEQ/L 17.6 MEQ/L (21.0-32.0) (21.0-32.0) Anion Gap 17 MEQ/L (5-15) 16 MEQ/L (5-15) Creatinine 1.10 MG/DL 1.10 MG/DL (0.50-1.00) (0.50-1.00) Estimat Glomerular Filtration 52 ML/MIN (>89) 52 ML/MIN (>89) Rate Blood Gas HCO3 16 mmol/L (22-26) Blood Gas Base Excess -8.3 mmol/L (-2-2) Arterial Blood pH 7.34 (7.380-7.420) Arterial Blood Partial 32 mmHg (38-42) Pressure CO2 Blood Gas Hemoglobin 9.7 G/DL (12.0-16.0) Calcium Level 8.0 MG/DL (8.5-10.1) Salicylates Level LESS THAN 1.7 MG/DL (2.8-20.0) Urine Color JAMES (YELLW/STRAW) Urine Ketones 15 mg/dL (NEG) Urine Occult Blood SMALL (NEG) Urine Leukocyte Esterase SMALL (NEG) Urine WBC 6-8 /hpf (0-5) Urine Bacteria FEW /hpf (NONE) Test 11/26/16 11/26/16 11/27/16 11/28/16 01:30 08:05 08:20 07:11 Sodium Level 121 MEQ/L 122 MEQ/L 132 MEQ/L 135 MEQ/L (136-145) (136-145) (136-145) (136-145) Chloride Level 88 MEQ/L 90 MEQ/L (98-107) (98-107) Carbon Dioxide Level 20.2 MEQ/L 20.5 MEQ/L (21.0-32.0) (21.0-32.0) Creatinine 1.20 MG/DL 1.30 MG/DL 1.10 MG/DL (0.50-1.00) (0.50-1.00) (0.50-1.00) Estimat Glomerular Filtration 47 ML/MIN (>89) 43 ML/MIN (>89) 52 ML/MIN (>89) 76 ML/MIN (>89) Rate Random Glucose 109 MG/DL (74-106) Red Blood Count 2.76 MIL/MM3 2.73 MIL/MM3 2.65 MIL/MM3 (4.00-5.30) (4.00-5.30) (4.00-5.30) Hemoglobin 9.2 GM/DL 9.1 GM/DL 8.9 GM/DL (11.6-15.3) (11.6-15.3) (11.6-15.3) Hematocrit 28.1 % 27.5 % 26.6 % (35.0-46.0) (35.0-46.0) (35.0-46.0) Mean Corpuscular Volume 101.8 FL 100.7 FL 100.5 FL (80.0-100.0) (80.0-100.0) (80.0-100.0) Neutrophils % (Manual) 71 % (16-70) 76 % (16-70) Monocytes % 9 % (0-8) Neutrophils (%) (Auto) 73.8 % (16.0-70.0) Monocytes (%) (Auto) 11.4 % (0.0-8.0) Lymphocytes # (Auto) 0.7 TH/MM3 (1.0-4.8) Calcium Level 8.2 MG/DL (8.5-10.1) Blood Urea Nitrogen 3 MG/DL (7-18) Imaging Last Impressions Renal Ultrasound 11/26/16 Signed Impressions: Service Date/Time: November 14:50 - CONCLUSION: Normal examination for a patient of this age. Alejo Arauz MD Thoracic Spine CT 11/24/16 Signed Impressions: Service Date/Time: Thursday, November 24, 2016 21:11 - CONCLUSION: 1. Mild degenerative disc disease. No acute bony abnormality. No canal stenosis. Rene Hanson MD Lumbar Spine CT 11/24/16 Signed Impressions: Service Date/Time: Thursday, November 24, 2016 21:11 - CONCLUSION: 1. At L4-5 there is a broad-based posterior disc protrusion, worse on the left side with lateral recess stenosis and foraminal stenosis, left greater than right. Vacuum phenomenon present at the disc interspace. No acute fracture or spondylolisthesis Rene Hanson MD Head CT 11/24/16 0000 Signed Impressions: Service Date/Time: Thursday, November 24, 2016 21:05 - CONCLUSION: Normal examination for a patient of this age. Rene Hanson MD Cervical Spine CT 11/24/16 Signed Impressions: Service Date/Time: Thursday, November 24, 2016 21:05 - CONCLUSION: 1. No acute findings. Rene Hanson MD PE at Discharge GENERAL: NAD SKIN: Warm and dry. HEAD: Normocephalic. EYES: No scleral icterus. No injection or drainage. NECK: Supple, trachea midline. No JVD or lymphadenopathy. CARDIOVASCULAR: Regular rate and rhythm without murmurs, gallops, or rubs. RESPIRATORY: Breath sounds equal bilaterally. No accessory muscle use. GASTROINTESTINAL: Abdomen soft, non-tender, nondistended. MUSCULOSKELETAL: No cyanosis, or edema. BACK: Nontender without obvious deformity. No CVA tenderness. Hospital Course Patient admitted secondary to generalized weakness, was found to have severe electrolyte abnormalities which were corrected accordingly. Coming to hypotension, all oral antihypertensive medication were held and patient was treated with IV fluid hydration. Renal function improved with IVF. Prior to discharge, patient's condition improved and vitals remained stable. Will continue to hold all oral antihypertensive medications, and patient was advised to monitor BP Pt Condition on Discharge: Stable Discharge Disposition: Discharge Home Discharge Time: <= 30 minutes Discharge Instructions DIET: Follow Instructions for: Heart Healthy Diet Activities you can perform: Regular-No Restrictions Follow up Referrals: PCP Follow-up - 1 Week New Medications: Ondansetron (Zofran) 4 Mg Tab 4 MG PO Q8HR PRN NAUSEA OR VOMITING #21 Ref 0 TAB Continued Medications: Clonazepam (Clonazepam) 0.5 Mg Tab 0.5 MG PO BID #60 Ref 0 TAB Levetiracetam (Levetiracetam) 500 Mg Tab 500 MG PO TID Control Seizures #60 Ref 0 TAB Levothyroxine (Levothyroxine) 112 Mcg Tab 112 MCG PO DAILY Thyroid #30 Ref 0 TAB Montelukast (Montelukast) 10 Mg Tab 10 MG PO HS #30 Ref 0 TAB Shoaib Escalante MD Nov 28, 2016 11:59
== END 2016-11-28 13:55 | disposition home or self-care (01) | DRG 641 ==
LOC: PHED 17:11 → PHEDA 23:00 → PH3A 11-25 08:30
PROVIDERS: ADMIT Hospitalist; ATTEND Hospitalist
DX: E86.0 Dehydration (principal); N17.9 Acute kidney failure, unspecified; I95.89 Other hypotension; E87.2 Acidosis; E87.1 Hypo-osmolality and hyponatremia; I10 Essential (primary) hypertension; J45.909 Unspecified asthma, uncomplicated; F41.9 Anxiety disorder, unspecified; M51.26 Other intervertebral disc displacement, lumbar region; F10.20 Alcohol dependence, uncomplicated; E03.9 Hypothyroidism, unspecified; G40.909 Epilepsy, unspecified, not intractable, without status epilepticus; Y90.1 Blood alcohol level of 20-39 mg/100 ml
CPT/HCPCS: 36600; 70450; 72125; 72128; 72131; 76775; 76937; 80048; 80053; 80307; 81001; 82140; 82805; 83605; 83690; 84484; 85007; 85025; 85027; 85610; 85730; 93005; 96361; 96374; 96375; 96376; J1885; J2405; J7030

== ENCOUNTER 2017-08-20 18:35 | Emergency (ER) | payer BC ==
[~2017-08-20] VITALS: Ht 162.6 cm; Wt 117.0 kg
[~2017-08-20 18:35] MED LIST changes: +ARIC5TAB6 PO; +ARIP1TAB11 PO; +ASCO500T PO; +CHOL5000 PO; +CLON0.5T PO; -DIOV80TA4 PO; -FLON0.053; +FOLI1TAB6 PO; +GABA300C5 PO; +LEVE500 PO; +LEVE500T8 PO; +LEVO112T2 PO; -LEVO75TA3 PO; +METO100T PO; -METO50CR PO; +MONT10TA4 PO; +NIFE30TA61 PO; -NORC7.5T PO; +SODI1TAB PO; +THIA100 PO; +VALS1TAB63 PO; +VALS1TAB65 PO; +VITA200C3 PO; +ZOFR4TAB PO
[2017-08-20 18:39] VITALS: BP 182/114; PULSE 78; RESP 16; TEMP 97.5; O2SAT 95
[2017-08-20 19:00] VITALS: BP 136/62; PULSE 75; RESP 18; O2SAT 96
[2017-08-20] MEDS ORDERED: SERT-132 PO (19:10)
--- NOTE | 2017-08-20 19:22 | PD ---
HPI Chief Complaint: Musculoskeletal Complaint Time Seen by Provider: 19:06 Travel History International Travel<30 days: No Contact w/Intl Traveler<30days: No Traveled to known affect area: No History of Present Illness HPI 56-year-old female complains of right leg shaking. Patient states that the symptoms started a week ago and got worse for the past 3 days. Patient has history of hypertension, hyperlipidemia, anxiety and depression. Patient is on medication including metoprolol, levothyroxine, Keppra, gabapentin, montelukast , lorazepam, nifedipine, aripiprazole, Aripiprazole, multivitamins. Patient states that no new medication recently. Patient denies any alcohol or illicit drug abuse. Patient denies any back pain or injury to the right leg. PFSH Past Medical History Hx Anticoagulant Therapy: No Arthritis: Yes Asthma: Yes Blood Disorders: No Anxiety: Yes Depression: No Heart Rhythm Problems: Yes (REPORTS SOME FLUTTERING) Cancer: No Cardiovascular Problems: Yes High Cholesterol: Yes Chemotherapy: No Chest Pain: Yes Congestive Heart Failure: No COPD: Yes Cerebrovascular Accident: No Dementia: Yes Diabetes: No Diminished Hearing: No Endocrine: Yes Gastrointestinal Disorders: Yes GERD: Yes Genitourinary: No Headaches: Yes Hypertension: Yes Immune Disorder: No Medical other: Yes (korsakoff sx) Musculoskeletal: Yes Neurologic: Yes (REPORTS HX OF SEIZURES) Psychiatric: No Reproductive: No Respiratory: Yes Migraines: Yes (X LAST 2 DAYS) Radiation Therapy: No Seizures: Yes Sleep Apnea: No Thyroid Disease: Yes Influenza Vaccination: Yes ?: Not Menopausal: Yes Tubal Ligation: Yes Past Surgical History Abdominal Surgery: Yes ("FIXED A BLOCKAGE IN MY INTESTINE") Appendectomy: Yes Cholecystectomy: Yes Ear Surgery: Yes (SOME TEETH REMOVED) Genitourinary Surgery: Yes ("KIDNEYS TACKED UP WHEN I WAS A KID") Gynecologic Surgery: Yes (HYSTERECTOMY) Hysterectomy: Yes Other Surgery: Yes (CHOLECYSTECTOMY, STOMACH SURGERY, HYSTERECTOMY, APPENDECTOMY) Social History Alcohol Use: Yes (1-2 DRINKS/DAY) Tobacco Use: No Substance Use: No Allergies-Medications (Allergen,Severity, Reaction): Coded Allergies: enalaprilat (Unverified Allergy, Severe, Swelling, 08/20/17) latex (Unverified Allergy, Severe, Swelling, 08/20/17) lidocaine (Unverified Allergy, Severe, states blue lips and chest pressure , 08/20/17) morphine (Unverified Allergy, Severe, PANIC ATTACK, 08/20/17) penicillin G (Unverified Allergy, Severe, FACIAL SWELLING, 08/20/17) Reported Meds & Prescriptions Reported Meds & Active Scripts Active Aricept (Donepezil HCl) 5 Mg Tablet 5 Mg PO DAILY 30 Days Valsartan 40 Mg Tab 20 Mg PO BID Reported Sertraline (Sertraline HCl) 50 Mg Tab 50 Mg PO DAILY Gabapentin 300 Mg Cap 300 Mg PO TID Levetiracetam 500 Mg Tab 500 Mg PO TID Metoprolol Tartrate 100 Mg Tab 100 Mg PO BID Montelukast (Montelukast Sodium) 10 Mg Tab 10 Mg PO HS Levothyroxine (Levothyroxine Sodium) 112 Mcg Tab 112 Mcg PO DAILY Clonazepam 0.5 Mg Tab 0.5 Mg PO BID Review of Systems General / Constitutional: No: Fever Eyes: No: Visual changes HENT: No: Headaches Cardiovascular: No: Chest Pain or Discomfort Respiratory: No: Shortness of Breath Gastrointestinal: No: Abdominal Pain Genitourinary: No: Dysuria Musculoskeletal: No: Pain Skin: No Rash Neurologic: No: Weakness Psychiatric: No: Depression Endocrine: No: Polydipsia Hematologic/Lymphatic: No: Easy Bruising Physical Exam Narrative GENERAL: Well-nourished, well-developed patient. SKIN: Focused skin assessment warm/dry. HEAD: Normocephalic. EYES: No scleral icterus. No injection or drainage. NECK: Supple, trachea midline. No JVD or lymphadenopathy. CARDIOVASCULAR: Regular rate and rhythm without murmurs, gallops, or rubs. RESPIRATORY: Breath sounds equal bilaterally. No accessory muscle use. GASTROINTESTINAL: Abdomen soft, non-tender, nondistended. MUSCULOSKELETAL: No cyanosis, or edema. BACK: Nontender without obvious deformity. No CVA tenderness. Neurologic exam: Patient has shaking of the right leg. Patient does not have any shaking of the right leg when distracted. Patient can move right leg without any problem. Full range of motion of the right lower extremity. Sensory motor function distally intact. Good capillary refill. Data Data Last Documented VS Vital Signs Date Time Temp Pulse Resp B/P (MAP) Pulse Ox O2 Delivery O2 Flow Rate FiO2 08/20/17 19:50 18 96 Room Air 08/20/17 18:39 97.5 78 182/114 (136) Orders Orders Complete Blood Count With Diff (08/20/17 19:16) Basic Metabolic Panel (Bmp) (08/20/17 19:16) Thyroid Stimulating Hormone (08/20/17 19:16) Iv Access Insert/Monitor (08/20/17 19:16) Ecg Monitoring (08/20/17 19:16) Oximetry (08/20/17 19:16) Diphenhydramine Inj (Benadryl Inj) (08/20/17 19:30) Labs Laboratory Tests Test 08/20/17 19:40 White Blood Count 7.5 TH/MM3 Red Blood Count 3.66 MIL/MM3 Hemoglobin 12.3 GM/DL Hematocrit 35.3 % Mean Corpuscular Volume 96.5 FL Mean Corpuscular Hemoglobin 33.7 PG Mean Corpuscular Hemoglobin Concent 35.0 % Red Cell Distribution Width 15.2 % Platelet Count 261 TH/MM3 Mean Platelet Volume 8.0 FL Neutrophils (%) (Auto) 58.5 % Lymphocytes (%) (Auto) 26.8 % Monocytes (%) (Auto) 7.2 % Eosinophils (%) (Auto) 3.6 % Basophils (%) (Auto) 3.9 % Neutrophils # (Auto) 4.4 TH/MM3 Lymphocytes # (Auto) 2.0 TH/MM3 Monocytes # (Auto) 0.5 TH/MM3 Eosinophils # (Auto) 0.3 TH/MM3 Basophils # (Auto) 0.3 TH/MM3 CBC Comment DIFF FINAL Differential Comment Blood Urea Nitrogen 14 MG/DL Creatinine 0.68 MG/DL Random Glucose 84 MG/DL Calcium Level 8.8 MG/DL Sodium Level 131 MEQ/L Potassium Level 4.3 MEQ/L Chloride Level 98 MEQ/L Carbon Dioxide Level 24.3 MEQ/L Anion Gap 9 MEQ/L Estimat Glomerular Filtration Rate 90 ML/MIN Thyroid Stimulating Hormone 3rd Gen 0.052 uIU/ML MDM Medical Decision Making Medical Screen Exam Complete: Yes Emergency Medical Condition: Yes Interpretation(s) 20:34 PM. CBC within normal limits. Sodium 131. TSH 0.052. Differential Diagnosis Differential diagnosis including anxiety, muscle spasm, electrolyte abnormality , focal seizure. Narrative Course 56-year-old female with right leg shaking however not shaking when distracted. Benadryl 25 mg IV given. Diagnosis Primary Impression: Muscle twitching Additional Impression: Hypothyroidism Qualified Codes: E03.9 - Hypothyroidism, unspecified Patient Instructions: General Instructions Additional Instructions: Benadryl as needed. Hold levothyroxine for 2 days and restart with half a dose daily. Follow up with personal physician 1 week to recheck TSH level. Med/Other Pt SpecificInfo: No Change to Meds Disposition: 01 DISCHARGE HOME Condition: Stable Rey Bateman MD August 20, 2017 19:21
[2017-08-20] MEDS ORDERED: diphenhydrAMINE HCL 50 MG/ML VIAL IV PUSH ONE (19:30)
[2017-08-20 19:50] VITALS: BP 132/75; PULSE 75; RESP 18; O2SAT 96
[2017-08-20 19:58] LABS: AUTOMATED NEUTROPHIL # 4.4 TH/MM3 (1.8-7.7); BASOPHIL # 0.3 TH/MM3 (0-0.2); BASOPHIL % 3.9 % (0.0-2.0); EOSINOPHIL # 0.3 TH/MM3 (0-0.4); EOSINOPHIL % 3.6 % (0.0-4.0); HEMATOCRIT 35.3 % (35.0-46.0); HEMOGLOBIN 12.3 GM/DL (11.6-15.3); LYMPH % 26.8 % (9.0-44.0); MEAN CELL VOLUME 96.5 FL (80.0-100.0); MEAN CORPUSCULAR HEMOGLOBIN 33.7 PG (27.0-34.0); MONO % 7.2 % (0.0-8.0); MONOCYTE # 0.5 TH/MM3 (0-0.9); NEUT % 58.5 % (16.0-70.0); PLATELET COUNT 261 TH/MM3 (150-450); RED BLOOD COUNT 3.66 MIL/MM3 (4.00-5.30); RED CELL DISTRIBUTION WIDTH 15.2 % (11.6-17.2); WHITE BLOOD COUNT 7.5 TH/MM3 (4.0-11.0)
[2017-08-20 20:12] LABS: BICARBONATE 24.3 MEQ/L (21.0-32.0); CALCIUM 8.8 MG/DL (8.5-10.1)
[2017-08-20 20:15] VITALS: BP 132/75; PULSE 75; RESP 16; O2SAT 96
[2017-08-20 20:16] LABS: CREATININE 0.68 MG/DL (0.50-1.00)
[2017-08-20 20:20] VITALS: BP 124/61; PULSE 77; RESP 16; O2SAT 95
== END 2017-08-20 21:07 | disposition home or self-care (01) ==
LOC: PHED 18:35
DX: R25.3 Fasciculation (principal); E03.9 Hypothyroidism, unspecified; I10 Essential (primary) hypertension; E78.5 Hyperlipidemia, unspecified; F41.9 Anxiety disorder, unspecified; F32.9 Major depressive disorder, single episode, unspecified; M19.90 Unspecified osteoarthritis, unspecified site; J44.9 Chronic obstructive pulmonary disease, unspecified; F03.90 Unspecified dementia, unspecified severity, without behavioral disturbance, psychotic disturbance, mood disturbance, and anxiety
CPT/HCPCS: 80048; 84443; 85025; 96374; 99284; J1200

== ENCOUNTER 2017-09-20 21:13 | Inpatient (IN) | payer BC ==
[~2017-09-20] VITALS: Ht 160 cm; Wt 85.6 kg
[2017-09-20] MEDS: POTASSIUM CHLOR 10 MEQ PREMIX 100 ML IV SCH (01:09)
[~2017-09-20 21:13] MED LIST changes: -ARIP1TAB11 PO; -ASCO500T PO; -CHOL5000 PO; -FOLI1TAB6 PO; -LEVE500 PO; -MONT10TA2 PO; -NIFE30TA61 PO; +SERT-132 PO; -SODI1TAB PO; -THIA100 PO; -VALS1TAB65 PO; -VITA200C3 PO; -ZOFR4TAB PO
[2017-09-20 21:16] VITALS: BP 130/69; PULSE 119; RESP 16; TEMP 98.4; O2SAT 100
[2017-09-20] MEDS ORDERED: SODIUM CHLOR 0.9% 1000 ML INJ 1,000 ML IV ONE (21:23)
[2017-09-20] MEDS ORDERED: SODIUM CHLORIDE 0.9% FLUSH 10 ML FLUSH IVF PRN (21:30)
[2017-09-20] MEDS ORDERED: PROPOFOL 1000 MG/100 ML INJ 100 ML IV PRN (21:30)
[2017-09-20 21:33] VITALS: RESP 13; O2SAT 100
[2017-09-20 21:34] VITALS: O2SAT 100
[2017-09-20 21:40] VITALS: BP 129/73; PULSE 136; RESP 16; O2SAT 100
--- NOTE | 2017-09-20 21:40 | PD ---
HPI Chief Complaint: Seizure Time Seen by Provider: 21:19 Travel History International Travel<30 days: No Contact w/Intl Traveler<30days: No Traveled to known affect area: No History of Present Illness HPI The patient is a 56 year old female who presents to the [facility] emergency department with a history of last being seen normal by her approximately 3 hours prior to arrival in the emergency department at 9:15 PM this evening. The patient was found by her lying on the couch snoring, with a decreased level of consciousness, unable to be aroused. The patient then had seizure activity noted that was described as generalized tonic-clonic seizure activity. The patient has a prior history of seizures, however according to the she had not had a seizure for a couple of years. The patient reportedly also has early onset dementia and alcohol use. The patient reportedly was drinking alcohol today. The patient's blood sugar was noted to be 117 prior to arrival. The patient was postictal upon ambulance services arrival. The patient then had seizure activity that lasted 2 minutes. Versed 2 mg was administered IM. The patient was again postictal, however she experienced seizure activity again and was given Versed 2 mg IV. The patient then proceeded to vomit and aspirate according to ambulance services with rhonchi and lower lobes. The patient's O2 saturation on nonrebreather was 90%. The patient was intubated with a 7.0 endotracheal tube that is 23 at the teeth on arrival. Patient had an OG tube placed to gravity. The patient's medication bottles were brought with the patient. The patient does have an empty bottle of Keppra at the bedside. The patient is unable to provide any history on arrival. Due to a third seizure after intubation, the patient was administered 4 mg of Versed IV, etomidate 20 mg IV. The patient had no further seizure activity in route to this facility. On review of systems is otherwise unable to be obtained in the, intubated. The patient's prior medical history will be obtained from reviewing the patient's electronic medical record and history from the patient's when he arrives in the emergency department. [facility] Past Medical History Narrative Medical The patient's past medical history is significant for seizure disorder, hypothyroid disorder, reported history of early onset dementia, history of psychiatric disorder, history of hyponatremia, hypertension, COPD. Medical History: Unable to Obtain Hx Anticoagulant Therapy: No Arthritis: Yes Asthma: Yes Blood Disorders: No Anxiety: Yes Depression: No Heart Rhythm Problems: Yes (REPORTS SOME FLUTTERING) Cancer: No Cardiovascular Problems: Yes High Cholesterol: Yes Chemotherapy: No Chest Pain: Yes Congestive Heart Failure: No COPD: Yes Cerebrovascular Accident: No Dementia: Yes Diabetes: No Diminished Hearing: No Endocrine: Yes Gastrointestinal Disorders: Yes GERD: Yes Genitourinary: No Headaches: Yes Hypertension: Yes Immune Disorder: No Musculoskeletal: Yes Neurologic: Yes (REPORTS HX OF SEIZURES) Psychiatric: No Reproductive: No Respiratory: Yes Migraines: Yes (X LAST 2 DAYS) Radiation Therapy: No Seizures: Yes Sleep Apnea: No Thyroid Disease: Yes ?: Unknown Menopausal: Yes Tubal Ligation: Yes Past Surgical History Narrative Surgical The patient's past surgical history is significant for left kidney surgery, part of her small intestine was resected, cholecystectomy, appendectomy. Surgical History: Unable to Obtain Abdominal Surgery: Yes ("FIXED A BLOCKAGE IN MY INTESTINE") Appendectomy: Yes Cholecystectomy: Yes Ear Surgery: Yes (SOME TEETH REMOVED) Genitourinary Surgery: Yes ("KIDNEYS TACKED UP WHEN I WAS A KID") Gynecologic Surgery: Yes (HYSTERECTOMY) Hysterectomy: Yes Other Surgery: Yes (CHOLECYSTECTOMY, STOMACH SURGERY, HYSTERECTOMY, APPENDECTOMY) Social History Alcohol Use: Yes (1-2 DRINKS/DAY) Tobacco Use: No Substance Use: No Allergies-Medications (Allergen,Severity, Reaction): Coded Allergies: enalaprilat (Unverified Allergy, Severe, Swelling, 08/20/17) latex (Unverified Allergy, Severe, Swelling, 08/20/17) lidocaine (Unverified Allergy, Severe, states blue lips and chest pressure , 08/20/17) morphine (Unverified Allergy, Severe, PANIC ATTACK, 08/20/17) penicillin G (Unverified Allergy, Severe, FACIAL SWELLING, 08/20/17) Reported Meds & Prescriptions Reported Meds & Active Scripts Active Aricept (Donepezil HCl) 5 Mg Tablet 5 Mg PO DAILY 30 Days Reported Valsartan 160 Mg Tab 160 Mg PO DAILY Levetiracetam 500 Mg Tab 500 Mg PO TID Metoprolol Tartrate 100 Mg Tab 100 Mg PO BID Ondansetron (Ondansetron HCl) 8 Mg Tab 8 Mg PO TID Sertraline (Sertraline HCl) 50 Mg Tab 50 Mg PO DAILY Levothyroxine (Levothyroxine Sodium) 112 Mcg Tab 112 Mcg PO DAILY Clonazepam 0.5 Mg Tab 0.5 Mg PO BID Review of Systems ROS Limitations: Intubated Gastrointestinal: Positive: Vomiting Neurologic: Positive: Seizures Physical Exam Narrative General: The patient is a well-developed well-nourished female, unresponsive on arrival with a GCS of 3, intubated with an endotracheal tube. Head and Neck exam: Head is normocephalic atraumatic. Eyes: Pupils are 3 mm, equal, round and reactive to light, extraocular motion testing is unable to be accomplished in this patient who arrives unresponsive. Nose: Midline septum with pink mucous membranes Mouth: Dentition unremarkable. Moist mucus membranes. Posterior oropharynx is not able to be fully visualized as the patient has an 7 oh endotracheal tube in place and OG tube in place. Neck: No palpable lymphadenopathy. No nuchal rigidity. No thyromegaly. Cardiovascular: Sinus tachycardia in the 120s without murmurs, gallops, or rubs. No pulse deficit to the extremities on simultaneous auscultation and palpation of her radial artery. Lungs: Clear to auscultation bilaterally. No wheezes, rhonchi, or rales. Abdomen: Soft, without tenderness to palpation in all 4 quadrants of the abdomen. No guarding, rebound, or rigidity. Normal bowel sounds are audible. No ecchymosis or erythema. Extremities: No clubbing, cyanosis, or edema. 2+ pulses in all 4 extremities. Back: No erythema or ecchymosis. No step-off or crepitus. Neurologic Exam: The patient arrives with a GCS of 3. The patient is noted to be breathing above the vent. The patient is noted to be intermittently coughing against the vent. Skin Exam: No rash noted. Intact skin that is warm and dry. Data Data Last Documented VS Vital Signs Date Time Temp Pulse Resp B/P (MAP) Pulse Ox O2 Delivery O2 Flow Rate FiO2 09/20/17 21:40 136 16 129/73 (91) 100 Ventilator 100 09/20/17 21:16 98.4 Orders Orders Chest, Single Ap (09/20/17 21:23) Arterial Blood Gas (Abg) (09/20/17 21:23) Ecg Monitoring (09/20/17 21:23) Iv Access Insert/Monitor (09/20/17:23) Oximetry (09/20/17:23) Oxygen Administration (09/20/17:) Sodium Chloride 0.9% Flush (Ns Flush) (09/20/17 21:30) Sodium Chlor 0.9% 1000 Ml Inj (Ns 1000 M (09/20/17 21:23) Restraints Non-Violent HAYDER.Q3H (09/20/17:) Electrocardiogram (09/20/17:) Complete Blood Count With Diff (09/20/17:) Comprehensive Metabolic Panel (09/20/17:) Creatine Kinase (Cpk) (09/20/17:) Ckmb (Isoenzyme) Profile (09/20/17) Troponin I (09/20/17:) B-Type Natriuretic Peptide (09/20/17:) Prothrombin Time / Inr (Pt) (09/20/17:) Act Partial Throm Time (Ptt) (09/20/17:) Lipase (09/20/17:) Urinalysis - C+S If Indicated (09/20/17:23) Magnesium (Mg) (09/20/17:23) Ammonia (09/20/17:) Urinary Catheter Insert/Apply (09/20/17:23) Bhumika-Gastric Tube Insert/Mon (09/20/17:23) Drug Screen, Random Urine (09/20/17:23) Alcohol (Ethanol) (09/20/17:23) Salicylates (Aspirin) (09/20/17 21:23) Tylenol (Acetaminophen) (09/20/17 21:23) Propofol 1000 Mg/100 Ml Inj (Diprivan 10 (09/20/17 21:30) Admit Order (Ed Use Only) (09/20/17 22:50) Levetiracetam Inj (Keppra Inj) (09/20/17 23:00) Thiamine Inj (Thiamine Inj) (09/20/17 23:00) CKMB (09/20/17 21:50) CKMB% (09/20/17 21:50) Ct Brain W/O Iv Contrast(Rout) (09/21/17 21:23) Labs Laboratory Tests Test 09/20/17 21:50 09/20/17 22:26 09/20/17 22:36 White Blood Count 12.2 TH/MM3 Red Blood Count 3.40 MIL/MM3 Hemoglobin 11.5 GM/DL Hematocrit 34.0 % Mean Corpuscular Volume 100.0 FL Mean Corpuscular Hemoglobin 33.9 PG Mean Corpuscular Hemoglobin Concent 33.9 % Red Cell Distribution Width 13.3 % Platelet Count 290 TH/MM3 Mean Platelet Volume 8.6 FL Neutrophils (%) (Auto) 89.5 % Lymphocytes (%) (Auto) 4.5 % Monocytes (%) (Auto) 4.7 % Eosinophils (%) (Auto) 0.2 % Basophils (%) (Auto) 1.1 % Neutrophils # (Auto) 11.0 TH/MM3 Lymphocytes # (Auto) 0.5 TH/MM3 Monocytes # (Auto) 0.6 TH/MM3 Eosinophils # (Auto) 0.0 TH/MM3 Basophils # (Auto) 0.1 TH/MM3 CBC Comment DIFF FINAL Differential Comment Prothrombin Time 10.4 SEC Prothromb Time International Ratio 1.0 RATIO Activated Partial Thromboplast Time 19.2 SEC Blood Urea Nitrogen 6 MG/DL Creatinine 1.22 MG/DL Random Glucose 112 MG/DL Total Protein 6.8 GM/DL Albumin 3.3 GM/DL Calcium Level 8.8 MG/DL Magnesium Level 1.3 MG/DL Alkaline Phosphatase 42 U/L Aspartate Amino Transf (AST/SGOT) 64 U/L Alanine Aminotransferase (ALT/SGPT) 80 U/L Total Bilirubin 1.1 MG/DL Sodium Level 135 MEQ/L Potassium Level 2.8 MEQ/L Chloride Level 98 MEQ/L Carbon Dioxide Level 21.4 MEQ/L Anion Gap 16 MEQ/L Estimat Glomerular Filtration Rate 46 ML/MIN Phosphorus Level 3.6 MG/DL Total Creatine Kinase 101 U/L Creatine Kinase MB 2.7 NG/ML Troponin I LESS THAN 0.02 NG/ML B-Type Natriuretic Peptide 22 PG/ML Lipase 240 U/L Salicylates Level LESS THAN 1.7 MG/DL Acetaminophen Level LESS THAN 2.0 MCG/ML Ethyl Alcohol Level LESS THAN 3 MG/DL Blood Gas Puncture Site RT RADIAL Blood Gas Patient Temperature 98.6 Blood Gas HCO3 24 mmol/L Blood Gas Base Excess 0.3 mmol/L Blood Gas Oxygen Saturation 99 % Arterial Blood pH 7.41 Arterial Blood Partial Pressure CO2 39 mmHg Arterial Blood Partial Pressure O2 373 mmHG Arterial Blood Oxygen Content 17.0 Vol % Arterial Blood Carboxyhemoglobin 0.9 % Arterial Blood Methemoglobin 0.5 % Blood Gas Hemoglobin 11.6 G/DL Oxygen Delivery Device VENTILATOR Blood Gas Ventilator Setting VAC/16/500/+5 Blood Gas Inspired Oxygen 100 % Ammonia 50 MCMOL/L MDM Medical Decision Making Medical Screen Exam Complete: Yes Emergency Medical Condition: Yes Medical Record Reviewed: Yes Differential Diagnosis Noncompliance with antiepileptic medications, versus alcohol-related withdrawal seizures, versus other withdrawal syndrome, versus electrolyte derangements, versus intracranial abnormality Narrative Course During the course of the patient's emergency department visit, the had IV access obtained and blood work sent for analysis. The patient was placed on a ventilator by respiratory therapy. An ABG was ordered. The patient will have a Iqbal catheter placed to gravity. The patient's OG tube was placed to low intermittent suction. An EKG was done on arrival that shows a sinus tachycardia rate of 128, QRS duration 80 ms, QTC 410 ms. The baseline is tremulous which could be affecting interpretation, however does appear to be a sinus tachycardia, no acute ST segment elevation is noted. The patient was initially provided propofol for sedation on the ventilator. The patient had another generalized clonic tonic seizure was given 2 mg of Ativan IV. The patient was started on normal saline IV fluids. The patient was given Keppra 1 g IV. The patient's laboratory studies were reviewed and remarkable for a white count of 12.2, hemoglobin 11.5, platelets 290 with 89.5 neutrophils, PT 10.4, PTT 19.2 Radiology studies were reviewed and remarkable for a chest x-ray that shows perihilar basilar atelectasis, no effusion, elevated right hemidiaphragm, patient has an endotracheal tube in place. The patient had no further witnessed seizure activity. The patient's case was discussed with Dr. Cantu, the telephone interceptor operator on-call who did agree to admit the patient to the intensive care unit for further evaluation. The patient will have a CT scan of the brain on her way of to the intensive care unit. The patient was admitted to the hospital in critical condition and sent to a bed under the care of the telephone interceptor operator service. Critical Care Narrative Aggregate critical care time was 38 minutes. Time to perform other separately billable procedures was not included in the critical care time. My time did not include minutes spent treating any other patients simultaneously or on activities that did not directly contribute to the patient's treatment. The services I provided to this patient were to treat and/or prevent clinically significant deterioration that could result in: Hypoxic encephalopathy, versus continued status epilepticus I provided critical care services requiring my management, as noted below: Chart data review, documentation time, medication orders and management, vital sign assessments/reviewing monitor data, ordering and reviewing lab tests, ordering and interpreting/reviewing x-rays and diagnostic studies, care of the patient and discussion of the patient with the admitting physicians. Physician Communication Physician Communication The patient's case including history, pertinent physical examination findings, and laboratory studies were discussed with Dr. Cantu. It was agreed that the patient would be admitted to the telephone interceptor operator service. Diagnosis Primary Impression: Status epilepticus Additional Impression: Aspiration into airway Qualified Codes: T17.908A - Unspecified foreign body in respiratory tract, part unspecified causing other injury, initial encounter Admitting Information Admitting Physician Requests: Admit Jessica Castillo MD Sep 20, 2017 21:40
[2017-09-20] MEDS ORDERED: VALS1TAB65 PO (22:00)
[2017-09-20] MEDS ORDERED: ONDA8TAB7 PO (22:00)
[2017-09-20] MEDS ORDERED: LEVE500T8 PO (22:00)
[2017-09-20] MEDS ORDERED: METO100T PO (22:00)
[2017-09-20 22:06] LABS: BASOPHIL # 0.1 TH/MM3 (0-0.2); BASOPHIL % 1.1 % (0.0-2.0); EOSINOPHIL % 0.2 % (0.0-4.0); HEMOGLOBIN 11.5 GM/DL (11.6-15.3); LYMPH % 4.5 % (9.0-44.0); LYMPHOCYTE # 0.5 TH/MM3 (1.0-4.8); MEAN CORPUSCULAR HEMOGLOBIN 33.9 PG (27.0-34.0); MEAN CORPUSCULAR HGB CONC 33.9 % (32.0-36.0); MEAN PLATELET VOLUME 8.6 FL (7.0-11.0); MONO % 4.7 % (0.0-8.0); MONOCYTE # 0.6 TH/MM3 (0-0.9); NEUT % 89.5 % (16.0-70.0); PLATELET COUNT 290 TH/MM3 (150-450); RED CELL DISTRIBUTION WIDTH 13.3 % (11.6-17.2); WHITE BLOOD COUNT 12.2 TH/MM3 (4.0-11.0)
--- NOTE | 2017-09-20 22:11 | RADRPT ---
EXAM DATE: 09/20/2017 10:05 PM EDT AGE/SEX: 56 years / Female INDICATIONS: Post procedure. CLINICAL DATA: This is the patient's initial encounter. Patient reports that signs and symptoms have been present for 1 day and indicates a pain score of Nonresponsive. MEDICAL/SURGICAL HISTORY: Non-responsive. Non-responsive. COMPARISON: No prior [facility] exams available for comparison. FINDINGS: Endotracheal tube is in good position. NG enters the stomach. Mild perihilar and basilar opacity may represent atelectasis. No effusion. No pneumothorax. CONCLUSION: Perihilar and basilar atelectasis. No effusion. Elevated right hemidiaphragm. No pneumothorax. Electronically signed by: Rene Hanson MD 09/20/2017 10:09 PM EDT
[2017-09-20 22:31] LABS: PROTHROMBIN TIME - PATIENT 10.4 SEC (9.8-11.6)
[2017-09-20 22:56] LABS: ALBUMIN 3.3 GM/DL (3.4-5.0); ALKALINE PHOSPHATASE 42 U/L (45-117); ALT (GPT) 80 U/L (10-53); AST (GOT) 64 U/L (15-37); BICARBONATE 21.4 MEQ/L (21.0-32.0); BLOOD UREA NITROGEN 6 MG/DL (7-18); CALCIUM 8.8 MG/DL (8.5-10.1); CHLORIDE 98 MEQ/L (98-107); CREATININE 1.22 MG/DL (0.50-1.00); GLOMERULAR FILTRATION RATE 46 ML/MIN (>89); GLUCOSE,RANDOM 112 MG/DL (74-106); MAGNESIUM 1.3 MG/DL (1.5-2.5); SODIUM (NA) 135 MEQ/L (136-145); TOTAL BILIRUBIN ADULT 1.1 MG/DL (0.2-1.0); TOTAL PROTEIN 6.8 GM/DL (6.4-8.2); TROPONIN I LESS THAN 0.02 NG/ML (0.02-0.05)
[2017-09-20] MEDS ORDERED: levETIRAcetam INJ 100 ML IV ONE (23:00)
[2017-09-20] MEDS ORDERED: THIAMINE INJ 100 MG in SODIUM CHLORIDE 0.9% INJ 100 ML IV ONE (23:00)
[2017-09-20 23:10] LABS: ACETAMINOPHEN LESS THAN 2.0 MCG/ML (10.0-30.0)
--- NOTE | 2017-09-20 23:18 | HHI.HP ---
HPI Service Critical Care Medicine Primary Care Physician James Killian MD Admission Diagnosis Status Epilepticus Diagnosis: Travel History International Travel<30 Days: No Contact w/Intl Traveler <30 Da: No Traveled to Known Affected Are: No History of Present Illness 56 year old female presents after she was found by her lying on the couch snoring, with a decreased level of consciousness, unable to be aroused. The patient then had seizure activity noted that was described as generalized tonic-clonic seizure activity. The patient has a prior history of seizures, however according to the she had not had a seizure for a couple of years. Patient has a history of early onset of dementia and alcohol use disorder. She did drink alcohol today. The patient was postictal upon ambulance services arrival and then had seizure activity that lasted 2 minutes. Versed 2 mg was administered IM. The patient was again postictal, however she experienced seizure activity again and was given another versed 2 mg IV. The patient then proceeded to vomit and aspirate according to ambulance services with rhonchi and lower lobes. The patient's O2 saturation on nonrebreather was 90% and the patient was intubated with a 7.0 endotracheal tube that is 23 at the teeth on arrival. Review of Systems ROS Unable to obtain patient sedated and intubated Past Family Social History Allergies: Coded Allergies: enalaprilat (Unverified Allergy, Severe, Swelling, 08/20/17) latex (Unverified Allergy, Severe, Swelling, 08/20/17) lidocaine (Unverified Allergy, Severe, states blue lips and chest pressure , 08/20/17) morphine (Unverified Allergy, Severe, PANIC ATTACK, 08/20/17) penicillin G (Unverified Allergy, Severe, FACIAL SWELLING, 08/20/17) Past Medical History Seizures, asthma, anxiety, hypothyroid, hypertension Past Surgical History Hysterectomy Lung surgery as a child unsure what kind Reported Medications Reported Meds & Active Scripts Active Aricept (Donepezil HCl) 5 Mg Tablet 5 Mg PO DAILY 30 Days Reported Valsartan 160 Mg Tab 160 Mg PO DAILY Levetiracetam 500 Mg Tab 500 Mg PO TID Metoprolol Tartrate 100 Mg Tab 100 Mg PO BID Ondansetron (Ondansetron HCl) 8 Mg Tab 8 Mg PO TID Sertraline (Sertraline HCl) 50 Mg Tab 50 Mg PO DAILY Levothyroxine (Levothyroxine Sodium) 112 Mcg Tab 112 Mcg PO DAILY Clonazepam 0.5 Mg Tab 0.5 Mg PO BID Active Ordered Medications Current Medications Medications (Trade) Dose Ordered Sig/Yarely Route PRN Reason Start Time Stop Time Status Last Admin Dose Admin Sodium Chloride 1,000 ml @ 125 mls/hr Q8H ONCE IV 09/20/17 21:23 09/21/17 05:22 09/20/17 21:35 Thiamine HCl 100 mg/Sodium Chloride 101 ml @ 101 mls/hr ONCE ONCE IV 09/20/17 23:00 09/20/17 23:59 09/20/17 23:45 Clonazepam (KlonoPIN) 0.5 mg BID PO 09/21/17 09:00 Donepezil HCl (Aricept) 5 mg DAILY PO 09/21/17 09:00 Levetriacetam (Keppra) 500 mg TID PO 09/21/17 09:00 Levothyroxine Sodium (Synthroid) 112 mcg DAILY@0600 PO 09/21/17 06:00 Metoprolol Tartrate (Lopressor) 100 mg BID PO 09/21/17 09:00 Sertraline HCl (Zoloft) 50 mg DAILY PO 09/21/17 09:00 Valsartan (Diovan) 160 mg DAILY PO 09/21/17 09:00 Sodium Chloride 1,000 ml @ 184 mls/hr Q5H27M IV 09/20/17 23:19 09/20/17 23:46 Sodium Chloride (NS Flush) 2 ml UNSCH PRN IV FLUSH FLUSH AFTER USING IV ACCESS 09/20/17 23:30 Sodium Chloride (NS Flush) 2 ml BID IV FLUSH 09/21/17 09:00 Acetaminophen (Tylenol) 650 mg Q6H PRN PO PAIN 1-10 AND/OR FEVER >101F 09/20/17 23:30 Famotidine (Pepcid Inj) 20 mg Q12HR IV PUSH 09/21/17 09:00 Lorazepam (Ativan Inj) 1 mg Q1H PRN IV PUSH Agitation/Sedation/Seizure 09/20/17 23:30 Artificial Tears (Tears Naturale Opth Soln) 1 drop TID EACH EYE 09/21/17 09:00 Ondansetron HCl (Zofran Odt) 4 mg Q6H PRN PO N/V 09/20/17 23:45 Temazepam (Restoril) 15 mg HS PRN PO INSOMNIA 09/20/17 23:30 Albuterol/ Ipratropium (Duoneb Neb) 1 ampule Q2HR NEB PRN INH WHEEZING 09/20/17 23:30 Enoxaparin Sodium (Lovenox Inj) 40 mg Q24H SQ 09/21/17 09:00 Miscellaneous Information ([facility] [place] Nursing Information) 1 [id number] XX 09/20/17 23:30 Chlorhexidine Gluconate (Chlorhexidine 2% Cloth) 3 pack Taper DAILY@04 TOP 09/21/17 04:00 09/17/18 03:59 Chlorhexidine Gluconate (Chlorhexidine 2% Cloth) 3 pack UNSCH PRN TOP HYGIENIC CARE 09/20/17 23:30 Senna/Docusate Sodium (Andie-Colace) 1 tab BID PO 09/21/17 09:00 Magnesium Hydroxide (Milk Of Magnesia Liq) 30 ml Q12H PRN PO Mild constipation 09/20/17 23:30 Sennosides (Senokot) 17.2 mg Q12H PRN PO Moderate constipation 09/20/17 23:30 Bisacodyl (Dulcolax Supp) 10 mg DAILY PRN RECTAL SEVERE CONSITIPATION 09/20/17 23:30 Lactulose (Lactulose Liq) 30 ml DAILY PRN PO SEVERE CONSITIPATION 09/20/17 23:30 Chlorhexidine Gluconate (Peridex 0.12% Liq) 15 ml BID@08,20 MT 09/21/17 08:00 Propofol 100 ml @ 2.28 mls/hr TITRATE PRN IV SEDATION 09/20/17 23:30 Potassium Chloride 100 ml @ 50 mls/hr Q2H PRN IV For Potassium 2.8 - 3.2 mEq/L 09/20/17 23:30 Potassium Chloride 100 ml @ 50 mls/hr Q2H PRN IV For Potassium 2.8 - 3.2 mEq/L 09/20/17 23:30 Potassium Bicarb/ Potassium Chloride (K-Lyte Cl Eff) 50 meq UNSCH PRN PO For Potassium 3.3 - 3.5 mEq/L 09/20/17 23:30 Potassium Chloride 100 ml @ 25 mls/hr UNSCH PRN IV For Potassium 3.3 - 3.5 mEq/L 09/20/17 23:30 Potassium Chloride 100 ml @ 50 mls/hr Q2H PRN IV For Potassium 3.3 - 3.5 mEq/L 09/20/17 23:30 Magnesium Sulfate 4 gm/Sodium Chloride 100 ml @ 50 mls/hr UNSCH PRN IV For Magnesium 0.9 - 1.1 mg/dL 09/20/17 23:30 Magnesium Oxide (Mag-Ox) 800 mg UNSCH PRN PO For Magnesium 1.2 - 1.6 mg/dL 09/20/17 23:30 Magnesium Sulfate 2 gm/Sodium Chloride 100 ml @ 50 mls/hr UNSCH PRN IV For Magnesium 1.2 - 1.6 mg/dL 09/20/17 23:30 Potassium Phosphate (K-Phos) 2,000 mg Q4H PRN PO For Phosphorus < 2.5 mg/dL 09/20/17 23:30 Sodium Phosphate 30 mmol/Sodium Chloride 250 ml @ 42 mls/hr UNSCH PRN IV For Phosphorus < 2.5 mg/dL 09/20/17 23:30 Potassium Phosphate (K-Phos) 2,000 mg UNSCH PRN PO/TUBE SEE LABEL COMMENTS 09/20/17 23:30 Potassium Phosphate 30 mmol/ Sodium Chloride 260 ml @ 42 mls/hr UNSCH PRN IV SEE LABEL COMMENTS 09/20/17 23:30 Potassium Chloride 100 ml @ 100 mls/hr Q1H IV 09/20/17 23:30 09/21/17 05:29 Family History Per chart review the patient denies any family history, no heart disease or cancer. Social History Tobacco use: Denies Alcohol use: Drinks 2-6 beers per day Illicit drug use: Denies Physical Exam Vital Signs Vital Signs Date Time Temp Pulse Resp B/P (MAP) Pulse Ox O2 Delivery O2 Flow Rate FiO2 09/20/17 21:40 136 16 129/73 (91) 100 Ventilator 100 09/20/17 21:34 100 100 09/20/17 21:33 13 100 Ventilator 100 09/20/17 21:33 100 Ventilator 100 09/20/17 21:27 114 13 100 Ventilator 100 09/20/17 21:16 98.4 119 16 130/69 (89) 100 Physical Exam GENERAL: Well-nourished, well-developed patient. Sedated and intubated SKIN: Warm and dry. HEAD: Normocephalic. EYES: No scleral icterus. No injection or drainage. NECK: Supple, trachea midline. No JVD or lymphadenopathy. CARDIOVASCULAR: Regular rate and rhythm without murmurs, gallops, or rubs. RESPIRATORY: Breath sounds equal bilaterally. No accessory muscle use. GASTROINTESTINAL: Abdomen soft, non-tender, nondistended. MUSCULOSKELETAL: No cyanosis, or edema. BACK: Nontender without obvious deformity. NEURO EXAM: The patient is sedated and intubated. Off sedation she moves all 4 extremities spontaneously. No focal neurological examination deficit Laboratory Laboratory Tests Test 09/20/17 21:50 09/20/17 22:26 09/20/17 22:36 White Blood Count 12.2 Red Blood Count 3.40 Hemoglobin 11.5 Hematocrit 34.0 Mean Corpuscular Volume 100.0 Mean Corpuscular Hemoglobin 33.9 Mean Corpuscular Hemoglobin Concent 33.9 Red Cell Distribution Width 13.3 Platelet Count 290 Mean Platelet Volume 8.6 Neutrophils (%) (Auto) 89.5 Lymphocytes (%) (Auto) 4.5 Monocytes (%) (Auto) 4.7 Eosinophils (%) (Auto) 0.2 Basophils (%) (Auto) 1.1 Neutrophils # (Auto) 11.0 Lymphocytes # (Auto) 0.5 Monocytes # (Auto) 0.6 Eosinophils # (Auto) 0.0 Basophils # (Auto) 0.1 CBC Comment DIFF FINAL Differential Comment Prothrombin Time 10.4 Prothromb Time International Ratio 1.0 Activated Partial Thromboplast Time 19.2 Blood Urea Nitrogen 6 Creatinine 1.22 Random Glucose 112 Total Protein 6.8 Albumin 3.3 Calcium Level 8.8 Magnesium Level 1.3 Alkaline Phosphatase 42 Aspartate Amino Transf (AST/SGOT) 64 Alanine Aminotransferase (ALT/SGPT) 80 Total Bilirubin 1.1 Sodium Level 135 Potassium Level 2.8 Chloride Level 98 Carbon Dioxide Level 21.4 Anion Gap 16 Estimat Glomerular Filtration Rate 46 Total Creatine Kinase 101 Troponin I LESS THAN 0.02 B-Type Natriuretic Peptide 22 Lipase 240 Salicylates Level LESS THAN 1.7 Acetaminophen Level LESS THAN 2.0 Ethyl Alcohol Level LESS THAN 3 Blood Gas Puncture Site RT RADIAL Blood Gas Patient Temperature 98.6 Blood Gas HCO3 24 Blood Gas Base Excess 0.3 Blood Gas Oxygen Saturation 99 Arterial Blood pH 7.41 Arterial Blood Partial Pressure CO2 39 Arterial Blood Partial Pressure O2 373 Arterial Blood Oxygen Content 17.0 Arterial Blood Carboxyhemoglobin 0.9 Arterial Blood Methemoglobin 0.5 Blood Gas Hemoglobin 11.6 Oxygen Delivery Device VENTILATOR Blood Gas Ventilator Setting VAC/16/500/+5 Blood Gas Inspired Oxygen 100 Ammonia 50 Result Diagram: 09/20/17214909/20/172149 Imaging Last 24 hours Impressions Chest X-Ray 09/20/172122 Signed Impressions: CONCLUSION: Perihilar and basilar atelectasis. No effusion. Elevated right hemidiaphragm. N o pneumothorax. Caprini VTE Risk Assessment Caprini VTE Risk Assessment: Mod/High Risk (score >= 2) Caprini Risk Assessment Model Point Value = 1 Point Value = 2 Point Value = 3 Point Value = 5 Age 41-60 Minor surgery BMI > 25 kg/m2 Swollen legs Varicose veins or History of unexplained or recurrent spontaneous Oral contraceptives or hormone replacement Sepsis (< 1 month) Serious lung disease, including pneumonia (< 1 month) Abnormal pulmonary function Acute myocardial infarction Congestive heart failure (< 1 month) History of inflammatory bowel disease Medical patient at bed rest Age 61-74 Arthroscopic surgery Major open surgery (> 45 min) Laparoscopic surgery (> 45 min) Malignancy Confined to bed (> 72 hours) Immobilizing plaster cast Central venous access Age >= 75 History of VTE Family history of VTE Factor V Leiden Prothrombin [id number] Lupus anticoagulant Anticardiolipin antibodies Elevated serum homocysteine Heparin-induced thrombocytopenia Other congenital or acquired thrombophilia Stroke (< 1 month) Elective arthroplasty Hip, pelvis, or leg fracture Acute spinal cord injury (< 1 month) Prophylaxis Regimen Total Risk Factor Score Risk Level Prophylaxis Regimen 0-1 Low Early ambulation 2 Moderate Order ONE of the following: *Sequential Compression Device (SCD) *Heparin 5000 units SQ BID 3-4 Higher Order ONE of the following medications: *Heparin 5000 units SQ TID *Enoxaparin/Lovenox 40 mg SQ daily (WT < 150 kg, CrCl > 30 mL/min) *Enoxaparin/Lovenox 30 mg SQ daily (WT < 150 kg, CrCl > 10-29 mL/min) *Enoxaparin/Lovenox 30 mg SQ BID (WT < 150 kg, CrCl > 30 mL/min) AND/OR *Sequential Compression Device (SCD) 5 or more Highest Order ONE of the following medications: *Heparin 5000 units SQ TID (Preferred with Epidurals) *Enoxaparin/Lovenox 40 mg SQ daily (WT < 150 kg, CrCl > 30 mL/min) *Enoxaparin/Lovenox 30 mg SQ daily (WT < 150 kg, CrCl > 10-29 mL/min) *Enoxaparin/Lovenox 30 mg SQ BID (WT < 150 kg, CrCl > 30 mL/min) AND *Sequential Compression Device (SCD) Assessment and Plan Assessment and Plan Respiratory failure -Intubated for an airway protection -Weaning trials when neurologically improved and seizure-free -Vent bundle -DuoNeb's as needed Status epilepticus -Loaded with fosphenytoin in the ED -Resume home dose of Keppra -EEG -Neurology consultation -Aggressive IV fluid hydration -Ativan as needed -CT head pending Hypertension -Metoprolol -Diovan Alcohol use disorder -Thiamine folate and multivitamins IV -CIWA Hypothyroidism -Levothyroxine Anxiety/depression -Clonazepam -Zoloft Dementia -Aricept DVT GI prophylaxis -Tests SCDs -Lovenox -Pepcid Critical Care: The total critical care time was 35 minutes. Time to perform other separately billable procedures was not included in the critical care time. Mahin Cantu MD Sep 20, 2017 11:18 pm
[2017-09-20] MEDS ORDERED: LORazepam 2 MG/ML VIAL IV PUSH PRN (23:30)
[2017-09-20] MEDS ORDERED: ACETAMINOPHEN 325 MG TAB PO PRN (23:30)
[2017-09-20] MEDS ORDERED: MAGNESIUM SULFATE INJ 4 GM in SODIUM CHLORIDE 0.9% INJ 92 ML IV PRN (23:30)
[2017-09-20] MEDS ORDERED: LACTULOSE SYRUP 20 GM/30 ML CUP PO PRN (23:30)
[2017-09-20] MEDS ORDERED: CHLORHEXIDINE GLUCONATE 2 % 1 PACK (2 CLOTHS) TOP PRN (23:30)
[2017-09-20] MEDS ORDERED: RESP: ALBUTEROL 2.5 MG/IPRATROPIUM 0.5 MG NEB (PRN) INH (23:30)
[2017-09-20] MEDS ORDERED: POTASSIUM CHLOR 20 MEQ PREMIX 100 ML IV PRN (23:30)
[2017-09-20] MEDS ORDERED: POTASSIUM PHOSPHATE INJ 30 MMOL in SODIUM CHLOR 0.9% 250 ML INJ 250 ML IV PRN (23:30)
[2017-09-20] MEDS ORDERED: POTASSIUM PHOSPHATE MONOBASIC 500 MG TAB PO PRN (23:30)
[2017-09-20] MEDS ORDERED: SODIUM PHOSPHATE INJ 30 MMOL in SODIUM CHLOR 0.9% 250 ML INJ 240 ML IV PRN (23:30)
[2017-09-20] MEDS ORDERED: TEMAZEPAM 15 MG CAP PO PRN (23:30)
[2017-09-20] MEDS ORDERED: BISACODYL 10 MG SUPP RECTAL PRN (23:30)
[2017-09-20] MEDS ORDERED: MAGNESIUM SULFATE INJ 2 GM in SODIUM CHLORIDE 0.9% INJ 96 ML IV PRN (23:30)
[2017-09-20] MEDS ORDERED: FOSPHENYTOIN INJ 1,000 MGPE in SODIUM CHLORIDE 0.9% INJ 50 ML IV ONE (23:30)
[2017-09-20] MEDS ORDERED: SENNOSIDES 8.6 MG TAB PO PRN (23:30)
[2017-09-20] MEDS ORDERED: MAGNESIUM HYDROXIDE SUSP 30 ML CUP PO PRN (23:30)
[2017-09-20] MEDS ORDERED: POTASSIUM CHLORIDE 25 MEQ EFFERVESCENT TAB PO PRN (23:30)
[2017-09-20] MEDS ORDERED: POTASSIUM CHLOR 40 MEQ PREMIX 100 ML IV PRN ×2 (23:30)
[2017-09-20] MEDS ORDERED: NURSING INFORMATION XX SCH (23:30)
[2017-09-20] MEDS ORDERED: POTASSIUM PHOSPHATE MONOBASIC 500 MG TAB PO/TUBE PRN (23:30)
[2017-09-20] MEDS ORDERED: MAGNESIUM OXIDE 400 MG TAB PO PRN (23:30)
[2017-09-20 23:42] VITALS: BP 120/70; PULSE 99; RESP 16; O2SAT 100
[2017-09-20] MEDS ORDERED: ONDANSETRON ODT 4 MG TAB PO PRN (23:45)
[2017-09-20] MEDS: SODIUM CHLOR 0.9% 1000 ML INJ 1,000 ML IV SCH (23:46)
[2017-09-21] VITALS (30 sets, daily range): BP systolic 91–135; BP diastolic 56–93; PULSE 59–114; RESP 16–104; TEMP 98.9–100.3; O2SAT 88–100
[2017-09-21] MEDS ORDERED: LORazepam 2 MG TAB PO PRN (00:15)
[2017-09-21] MEDS ORDERED: LORazepam 1 MG TAB PO PRN (00:15)
[2017-09-21] MEDS ORDERED: LORazepam 2 MG/ML VIAL IV PUSH PRN ×3 (00:15)
[2017-09-21] MEDS ORDERED: FLUMAZENIL 0.5 MG/5 ML VIAL IV PUSH PRN (00:15)
[2017-09-21] MEDS ORDERED: LORazepam 2 MG/ML VIAL IV PUSH ONE (00:45)
[2017-09-21] MEDS: PROPOFOL 1000 MG/100 ML INJ 100 ML IV PRN ×2 (01:21→09:51)
[2017-09-21 01:26] LABS: AMORPHOUS SEDIMENT, URINE RARE; BILIRUBIN, URINE NEG (NEG); BLOOD, URINE MOD (NEG); GLUCOSE,URINE NEG (NEG); HYALINE CAST, URINE 46 /lpf (RARE); KETONE, URINE NEG (NEG); MUCUS URINE FEW /lpf (OCC); NITRITE,URINE NEG (NEG); SQUAMOUS EPITHELIAL CELL URINE 2 /hpf (0-5); TRANSITIONAL EPI CELLS, URINE <1 /hpf; URINE COLOR YELLOW (YELLW/STRAW); URINE LEUKOCYTE ESTERASE TRACE (NEG); WHITE BLOOD CELL CLUMPS RARE
--- NOTE | 2017-09-21 01:32 | RADRPT ---
EXAM DATE: 09/21/2017 1:24 AM EDT AGE/SEX: 56 years / Female INDICATIONS: Altered mental status. CLINICAL DATA: This is the patient's initial encounter. Patient reports that signs and symptoms have been present for 1 day and indicates a pain score of Nonresponsive. MEDICAL/SURGICAL HISTORY: Non-responsive. Non-responsive. RADIATION DOSE: 56.35 CTDI (mGy) COMPARISON: [facility], CT BRAIN W/O CONTRAST, 11/24/2016. . TECHNIQUE: CT of the head without contrast. Using automated exposure control and adjustment of the mA and/or kV according to patient size, radiation dose was kept as low as reasonably achievable to ob tain optimal diagnostic quality images. FINDINGS: Cerebrum: The head is obliqued in orientation. No acute intracranial hemorrhage. However, there is a questionable mass in the left mid parietal area which was not present on the prior examination. The ventricles are normal in size. Posterior Fossa: The cerebellum and brainstem are intact. The 4th ventricle is midline. The cerebe llopontine angle is unremarkable. Extracranial: The visualized portion of the orbits is intact. Chronic sinus disease in the right max illary sinus. Skull: The calvaria is intact. No evidence of skull fracture. CONCLUSION: 1. Findings suspicious for possible mass in the left mid parietal lobe. Recommend MRI of the brain w ith and without contrast for further evaluation. Electronically signed by: Alejo Arauz MD 09/21/2017 1:31 AM EDT
[2017-09-21] MEDS: LORazepam 2 MG/ML VIAL IV PUSH PRN ×2 (02:01→05:45)
[2017-09-21] MEDS: POTASSIUM CHLOR 10 MEQ PREMIX 100 ML IV SCH ×5 (02:12→06:21)
[2017-09-21] MEDS: MAGNESIUM SULFATE 1 GM PREMIX 100 ML IV SCH ×2 (02:13→03:18)
[2017-09-21] MEDS ORDERED: MULTIVITAMIN INJ 10 ML, THIAMINE INJ 100 MG, FOLIC ACID INJ 1 MG in SODIUM CHLOR 0.45% ... IV ONE (02:15)
[2017-09-21] MEDS: CHLORHEXIDINE GLUCONATE 2 % 1 PACK (2 CLOTHS) TOP SCH (04:00)
[2017-09-21 04:46] LABS: AUTOMATED NEUTROPHIL # 7.3 TH/MM3 (1.8-7.7); BASOPHIL # 0.1 TH/MM3 (0-0.2); BASOPHIL % 0.8 % (0.0-2.0); EOSINOPHIL % 0.5 % (0.0-4.0); HEMATOCRIT 32.2 % (35.0-46.0); HEMOGLOBIN 11.2 GM/DL (11.6-15.3); LYMPH % 15.9 % (9.0-44.0); LYMPHOCYTE # 1.6 TH/MM3 (1.0-4.8); MEAN CELL VOLUME 98.6 FL (80.0-100.0); MEAN CORPUSCULAR HEMOGLOBIN 34.2 PG (27.0-34.0); MEAN CORPUSCULAR HGB CONC 34.7 % (32.0-36.0); MONO % 9.5 % (0.0-8.0); NEUT % 73.3 % (16.0-70.0); PLATELET COUNT 229 TH/MM3 (150-450); RED BLOOD COUNT 3.27 MIL/MM3 (4.00-5.30); RED CELL DISTRIBUTION WIDTH 13.1 % (11.6-17.2)
[2017-09-21 05:11] LABS: AST (GOT) 58 U/L (15-37); BICARBONATE 23.3 MEQ/L (21.0-32.0); BLOOD UREA NITROGEN 8 MG/DL (7-18); CALCIUM 8.4 MG/DL (8.5-10.1); CHLORIDE 101 MEQ/L (98-107); CREATININE 0.91 MG/DL (0.50-1.00); GLOMERULAR FILTRATION RATE 64 ML/MIN (>89); GLUCOSE,RANDOM 88 MG/DL (74-106); MAGNESIUM 1.9 MG/DL (1.5-2.5); SODIUM (NA) 136 MEQ/L (136-145)
[2017-09-21 05:20] LABS: ALKALINE PHOSPHATASE 36 U/L (45-117); ALT (GPT) 67 U/L (10-53); PHOSPHORUS 2.5 MG/DL (2.5-4.9); TOTAL BILIRUBIN ADULT 1.3 MG/DL (0.2-1.0); TOTAL PROTEIN 6.1 GM/DL (6.4-8.2)
[2017-09-21] MEDS: LEVOTHYROXINE SODIUM 112 MCG TAB PO SCH (06:00)
[2017-09-21] MEDS: clonazePAM 0.5 MG TAB PO SCH ×2 (08:00→20:25)
[2017-09-21] MEDS: DONEPEZIL HCL 5 MG TAB PO SCH (08:00)
[2017-09-21] MEDS: DOCUSATE SODIUM 50 MG/SENNA 8.6 MG TAB PO SCH ×2 (08:00→20:25)
[2017-09-21] MEDS: METOPROLOL TARTRATE 100 MG TAB PO SCH ×2 (08:00→20:25)
[2017-09-21] MEDS: SODIUM CHLORIDE 0.9% FLUSH 10 ML FLUSH IV FLUSH SCH ×2 (08:00→20:25)
[2017-09-21] MEDS: CHLORHEXIDINE 0.12% (ORAL KIT) 15 ML CUP MT SCH ×2 (08:00→20:25)
[2017-09-21] MEDS: SERTRALINE HCL 50 MG TAB PO SCH (08:00)
[2017-09-21] MEDS: FAMOTIDINE 20 MG/2 ML VIAL IV PUSH SCH ×2 (08:01→20:25)
[2017-09-21] MEDS: ENOXAPARIN SODIUM 40 MG/0.4 ML SYRINGE SQ SCH (08:02)
[2017-09-21 08:15] LABS: INTERNATIONAL NORMALIZED RATIO 1.1 RATIO; PROTHROMBIN TIME - PATIENT 10.7 SEC (9.8-11.6)
[2017-09-21] MEDS: SODIUM CHLOR 0.9% 1000 ML INJ 1,000 ML IV SCH ×2 (08:20→20:27)
--- NOTE | 2017-09-21 08:42 | HHI.CCPN ---
Subjective Remarks/Hospital Course 56 year old female presents after she was found by her lying on the couch snoring, with a decreased level of consciousness, unable to be aroused. The patient then had seizure activity noted that was described as generalized tonic-clonic seizure activity. The patient has a prior history of seizures, however according to the she had not had a seizure for a couple of years. Patient has a history of early onset of dementia and alcohol use disorder. She did drink alcohol today. The patient was postictal upon ambulance services arrival and then had seizure activity that lasted 2 minutes. Versed 2 mg was administered IM. The patient was again postictal, however she experienced seizure activity again and was given another versed 2 mg IV. The patient then proceeded to vomit and aspirate according to ambulance services with rhonchi and lower lobes. The patient's O2 saturation on nonrebreather was 90% and the patient was intubated with a 7.0 endotracheal tube that is 23 at the teeth on arrival. Subjective: 6/5 Follows commands with hand squeeze bilaterally off sedation. Appears tremulous. MRI tentative for 11 AM. EEG pending. Keppra was not given this morning because the pill could not be crushed. Changing to liquid. Objective Vital Signs Date Time Temp Pulse Resp B/P (MAP) Pulse Ox O2 Delivery O2 Flow Rate FiO2 09/21/17 07:59 100 35 09/21/17 07:00 85 09/21/17 07:00 99.4 16 100/56 (71) 09/21/17 01:21 Ventilator 09/21/17 01:00 15.00 Intake and Output 09/21/17 09/21/17 09/21/17 07:59 15:59 23:59 Intake Total 700 ml 1500 ml Output Total 250 ml Balance 450 ml 1500 ml Result Diagram: 09/21/17 0430 09/21/17 0430 Other Results Laboratory Tests Test 09/20/17 22:26 Blood Gas Puncture Site RT RADIAL Blood Gas Patient Temperature 98.6 Blood Gas HCO3 24 mmol/L (22-26) Blood Gas Base Excess 0.3 mmol/L (-2-2) Blood Gas Oxygen Saturation 99 % (90-100) Arterial Blood pH 7.41 (7.380-7.420) Arterial Blood Partial Pressure CO2 39 mmHg (38-42) Arterial Blood Partial Pressure O2 373 mmHG (61-120) Arterial Blood Oxygen Content 17.0 Vol % (12.0-20.0) Arterial Blood Carboxyhemoglobin 0.9 % (0-4) Arterial Blood Methemoglobin 0.5 % (0-2) Blood Gas Hemoglobin 11.6 G/DL (12.0-16.0) Oxygen Delivery Device VENTILATOR Blood Gas Ventilator Setting VAC/16/500/+5 Blood Gas Inspired Oxygen 100 % Imaging Last 24 hours Impressions Chest X-Ray 09/20/172122 Signed Impressions: CONCLUSION: Perihilar and basilar atelectasis. No effusion. Elevated right hemidiaphragm. N o pneumothorax. Objective Remarks GENERAL: Well-nourished, well-developed patient. Sedated and intubated SKIN: Warm and dry. HEAD: Normocephalic. EYES: No scleral icterus. No injection or drainage. NECK: Supple, trachea midline. No JVD or lymphadenopathy. CARDIOVASCULAR: Regular rate and rhythm without murmurs, gallops, or rubs. RESPIRATORY: Breath sounds equal bilaterally. Occasional rhonchi on the right. No accessory muscle use. GASTROINTESTINAL: Abdomen soft, non-tender, nondistended. NEURO EXAM: The patient is sedated and intubated. Off sedation she moves all 4 extremities spontaneously. She does not open her eyes. Pupils are 2 mm round and reactive bilaterally. She follows commands by squeezing with hand bilaterally in a reproducible fashion. She appears tremulous. A/P Assessment and Plan Respiratory failure -Intubated for an airway protection -Weaning trials when neurologically improved and seizure-free and MRI completed. -Vent bundle -DuoNeb's as needed Status epilepticus -Loaded with fosphenytoin in the ED -Resume home dose of Keppra -EEG -Neurology consultation -Aggressive IV fluid hydration -Ativan as needed -MRI pending. Hypertension -Metoprolol -Diovan Alcohol use disorder -Thiamine folate and multivitamins IV -CIWA Hypothyroidism -Levothyroxine Anxiety/depression -Clonazepam -Zoloft Dementia -Aricept DVT GI prophylaxis -SCDs -Lovenox -Pepcid Level 3 followup Chika Neff MD Sep 21, 2017 08:41
[2017-09-21] MEDS ORDERED: levETIRAcetam 500 MG TAB PO SCH (09:00)
[2017-09-21] MEDS: ARTIFICIAL TEARS OPTH SOLN 15 ML BTL EACH EYE SCH ×3 (09:00→18:00)
[2017-09-21] MEDS: VALSARTAN 160 MG TAB PO SCH (09:00)
--- NOTE | 2017-09-21 09:41 | PD.CONS ---
History of Present Illness Service Neurology Consult Requested By Medical Reason for Consult Seizures Primary Care Physician James Killian MD History of Present Illness 56 year old female presents after she was found by her lying on the couch snoring, with a decreased level of consciousness, unable to be aroused. Found to have generalized tonic-clonic activity by family followed by noted by [facility]. Her repeat doses of Versed. Was intubated for airway protection and currently on propofol drip. She is also on IV Keppra no seizures overnight per RN this morning. Is currently afebrile no leukocytosis. Drug screen positive for benzos. Ethanol level less than 3 CT brain scan suggesting a possible left hemispheric mass. MRI brain scan 01/06/2017 demonstrated minimal white matter changes no mass. History obtained from medical chart review as patient unable to answer she is intubated and on sedation Review of Systems ROS Unable to obtain patient sedated and intubated Past Family Social History Allergies: Coded Allergies: enalaprilat (Unverified Allergy, Severe, Swelling, 08/20/17) latex (Unverified Allergy, Severe, Swelling, 08/20/17) lidocaine (Unverified Allergy, Severe, states blue lips and chest pressure , 08/20/17) morphine (Unverified Allergy, Severe, PANIC ATTACK, 08/20/17) penicillin G (Unverified Allergy, Severe, FACIAL SWELLING, 08/20/17) Past Medical History Seizures, asthma, anxiety, hypothyroid, hypertension Past Surgical History Hysterectomy Lung surgery as a child unsure what kind Reported Medications Reported Meds & Active Scripts Active Aricept (Donepezil HCl) 5 Mg Tablet 5 Mg PO DAILY 30 Days Reported Valsartan 160 Mg Tab 160 Mg PO DAILY Levetiracetam 500 Mg Tab 500 Mg PO TID Metoprolol Tartrate 100 Mg Tab 100 Mg PO BID Ondansetron (Ondansetron HCl) 8 Mg Tab 8 Mg PO TID Sertraline (Sertraline HCl) 50 Mg Tab 50 Mg PO DAILY Levothyroxine (Levothyroxine Sodium) 112 Mcg Tab 112 Mcg PO DAILY Clonazepam 0.5 Mg Tab 0.5 Mg PO BID Family History Per chart review the patient denies any family history, no heart disease or cancer. Social History Tobacco use: Denies Alcohol use: Drinks 2-6 beers per day Illicit drug use: Denies Review of Systems Eye: Negative ENMT: Negative Respiratory: Negative Cardiovascular: Negative Neurologic: Negative Psychiatric: Negative All other ROS: Unable to obtain Past Family Social History Allergies: Coded Allergies: enalaprilat (Unverified Allergy, Severe, Swelling, 08/20/17) latex (Unverified Allergy, Severe, Swelling, 08/20/17) lidocaine (Unverified Allergy, Severe, states blue lips and chest pressure , 08/20/17) morphine (Unverified Allergy, Severe, PANIC ATTACK, 08/20/17) penicillin G (Unverified Allergy, Severe, FACIAL SWELLING, 08/20/17) Active Ordered Medications Current Medications Medications (Trade) Dose Ordered Sig/Yarely Route Start Time Stop Time Status Last Admin (KlonoPIN) 0.5 mg BID PO 09/21/17 09:00 09/21/17 08:00 (Aricept) 5 mg DAILY PO 09/21/17 09:00 09/21/17 08:00 (Synthroid) 112 mcg DAILY@0600 PO 09/21/17 06:00 09/21/17 06:00 (Lopressor) 100 mg BID PO 09/21/17 09:00 09/21/17 08:00 (Zoloft) 50 mg DAILY PO 09/21/17 09:00 09/21/17 08:00 (Diovan) 160 mg DAILY PO 09/21/17 09:00 Sodium Chloride 1,000 ml @ 84 mls/hr [id number] IV 09/20/17 23:19 09/21/17 08:20 (NS Flush) 2 ml UNSCH PRN IV FLUSH 09/20/17 23:30 (NS Flush) 2 ml BID IV FLUSH 09/21/17 09:00 09/21/17 08:00 (Tylenol) 650 mg Q6H PRN PO 09/20/17 23:30 (Pepcid Inj) 20 mg Q12HR IV PUSH 09/21/17 09:00 09/21/17 08:01 (Ativan Inj) 1 mg Q1H PRN IV PUSH 09/20/17 23:30 (Tears Naturale Opth Soln) 1 drop TID EACH EYE 09/21/17 09:00 (Zofran Odt) 4 mg Q6H PRN PO 09/20/17 23:45 (Restoril) 15 mg HS PRN PO 09/20/17 23:30 (Duoneb Neb) 1 ampule Q2HR NEB PRN INH 09/20/17 23:30 (Lovenox Inj) 40 mg Q24H SQ 09/21/17 09:00 09/21/17 08:02 ([facility]) 1 Q361D XX 09/20/17 23:30 (Chlorhexidine 2% Cloth) 3 pack Taper DAILY@04 TOP 09/21/17 04:00 09/17/18 03:59 09/21/17 04:00 (Chlorhexidine 2% Cloth) 3 pack UNSCH PRN TOP 09/20/17 23:30 (Andie-Colace) 1 tab BID PO 09/21/17 09:00 09/21/17 08:00 (Milk Of Magnesia Liq) 30 ml Q12H PRN PO 09/20/17 23:30 (Senokot) 17.2 mg Q12H PRN PO 09/20/17 23:30 (Dulcolax Supp) 10 mg DAILY PRN RECTAL 09/20/17 23:30 (Lactulose Liq) 30 ml DAILY PRN PO 09/20/17 23:30 (Peridex 0.12% Liq) 15 ml BID@08,20 MT 09/21/17 08:00 09/21/17 08:00 Propofol 100 ml @ 2.28 mls/hr TITRATE PRN IV 09/20/17 23:30 09/21/17 01:21 Potassium Chloride 100 ml @ 50 mls/hr Q2H PRN IV 09/20/17 23:30 Potassium Chloride 100 ml @ 50 mls/hr Q2H PRN IV 09/20/17 23:30 (K-Lyte Cl Eff) 50 meq UNSCH PRN PO 09/20/17 23:30 Potassium Chloride 100 ml @ 25 mls/hr UNSCH PRN IV 09/20/17 23:30 Potassium Chloride 100 ml @ 50 mls/hr Q2H PRN IV 09/20/17 23:30 Magnesium Sulfate 4 gm/Sodium Chloride 100 ml @ 50 mls/hr UNSCH PRN IV 09/20/17 23:30 (Mag-Ox) 800 mg UNSCH PRN PO 09/20/17 23:30 Magnesium Sulfate 2 gm/Sodium Chloride 100 ml @ 50 mls/hr UNSCH PRN IV 09/20/17 23:30 (K-Phos) 2,000 mg Q4H PRN PO 09/20/17 23:30 Sodium Phosphate 30 mmol/Sodium Chloride 250 ml @ 42 mls/hr UNSCH PRN IV 09/20/17 23:30 (K-Phos) 2,000 mg UNSCH PRN PO/TUBE 09/20/17 23:30 Potassium Phosphate 30 mmol/ Sodium Chloride 260 ml @ 42 mls/hr UNSCH PRN IV 09/20/17 23:30 (Romazicon Inj) 0.2 mg Q1M PRN IV PUSH 09/21/17 00:15 (Ativan) 1 mg Q4H PRN PO 09/21/17 00:15 (Ativan Inj) 1 mg Q4H PRN IV PUSH 09/21/17 00:15 (Ativan) 2 mg Q2H PRN PO 09/21/17 00:15 (Ativan Inj) 2 mg Q2H PRN IV PUSH 09/21/17 00:15 (Ativan Inj) 2 mg Q1H PRN IV PUSH 09/21/17 00:15 09/21/17 05:45 (Ativan Inj) 2 mg Q15M PRN IV PUSH 09/21/17 00:15 (Keppra Liq) 500 mg Q8H NG 09/21/17 09:00 Exam I&O / VS 09/21/17 09/21/17 09/22/17 15:00 23:00 07:00 Intake Total 1500 ml Balance 1500 ml Intake IV Total 1500 ml Vital Signs Date Time Temp Pulse Resp B/P (MAP) Pulse Ox O2 Delivery O2 Flow Rate FiO2 09/21/17 08:00 69 09/21/17 07:59 100 35 09/21/17 07:00 85 09/21/17 07:00 99.4 84 16 100/56 (71) 100 09/21/17 06:00 100 09/21/17 04:35 100 35 09/21/17 04:00 89 09/21/17 03:00 100.3 95 104 117/82 (94) 100 09/21/17 02:00 112 09/21/17 01:55 100 50 09/21/17 01:41 09/21/17 01:40 100.3 112 18 135/93 (107) 100 6 01:21 114 16 110/58 (75) 100 Ventilator 100 09/21/17 01:15 100 100 6/09/03 01:00 100 15.00 100 09/21/17 00:31 95 16 118/60 (79) 100 Ventilator 100 09/20/17 23:42 99 16 120/70 (87) 100 Ventilator 100 09/20/17 21:40 136 16 129/73 (91) 100 Ventilator 100 09/20/17 21:34 100 100 09/20/17 21:33 13 100 Ventilator 100 09/20/17 21:33 100 Ventilator 100 09/20/17 21:27 114 13 100 Ventilator 100 09/20/17 21:16 98.4 119 16 130/69 (89) 100 Exam Comments Intubated sedated on propofol coma state nonverbal not following motor requests no gaze deviation minimal grimace to tactile. OU 2-1.5 mm minimal withdrawal in her upper lower extremities plantarflexion no clonus. No twitching noted no involuntary movements. Review/Management Diagnosis/Plan: (1) Seizure ICD Codes: R56.9 - Unspecified convulsions Status: Chronic Plan: Possible breakthrough seizure exclude noncompliance Recommendations EEG Keppra level We will add IV Cerebyx as well If EEG is negative for any acute seizure activity extubation from neurologic standpoint No driving, swimming, operating heavy machinery for at least 6 months being seizure spell free (2) Unspecified psychosis ICD Codes: F29 - Unspecified psychosis not due to a substance or known physiological condition Status: Chronic Plan: Seen by psychiatry previous admissions Also a lumbar puncture for gait changes which is felt to be psychiatric by the neurology service. Lumbar puncture was negative for herpes PCR, negative for MS, minimally elevated CSF protein (3) HTN (hypertension) ICD Codes: I10 - HTN (hypertension) Status: Chronic (4) Adjustment disorder with anxiety ICD Codes: F43.22 - Adjustment disorder with anxiety Status: Chronic Problem Qualifiers (1) HTN (hypertension): Qualified Codes: I10 - Essential (primary) hypertension David Lynch MD Sep 21, 2017 09:41
[2017-09-21] MEDS: FOSPHENYTOIN SODIUM 500 MG PE/10 ML VIAL IV SCH ×2 (11:26→23:00)
[2017-09-21] MEDS: levETIRAcetam 500 MG/5 ML UDC NG SCH ×2 (11:26→17:39)
[2017-09-21] MEDS ORDERED: SODIUM CHLORID 0.9% 500 ML INJ 500 ML IV ONE (12:00)
[2017-09-21] MEDS ORDERED: LACTATED RINGER'S 1000 ML INJ 1,000 ML IV ONE (12:00)
[2017-09-21 12:29] LABS: MAGNESIUM 1.6 MG/DL (1.5-2.5)
[2017-09-21] MEDS: POTASSIUM CHLOR 20 MEQ PREMIX 100 ML IV PRN ×4 (12:57→20:26)
--- NOTE | 2017-09-21 16:11 | EKG ---
Date Performed: 09/20/2017 Time Performed: 21:51:18 PTAGE: 56 years EKG: Probable sinus tachycardia, but 2:1 atrial flutter cannot be entirely excluded LOW QRS VOLT AGE IN PRECORDIAL LEADS ANTEROSEPTAL MYOCARDIAL INFARCTION ABNORMAL ECG PREVIOUS TRACING : 01/19/2017 13.25 Since the prior trcing, criteria for the anterior wall infa rct is a new finding. The supraventricular tachycardia is a new finding. There has been an overall de crease in voltage. Significant serial changes have occurred, and clinical correlation will be importa nt. DOCTOR: Adrienne Workman Interpretating Date/Time 09/21/2017 16:11:09
--- NOTE | 2017-09-21 16:43 | MG ---
cc: Charli Painter MD, PhD Charli Painter MD PhD EEG NUMBER [id number] TECHNIQUE: A 17 channel EEG. DESCRIPTION: The background rhythm reveals slowing in the theta frequency at roughly 6 Hz. Amplitude is 10-20 microvolts. Later in the tracing, there is an alpha rhythm which appears to be fairly normal. No lateralizing features are identified. No epileptiform features are identified. Photic results in a fairly symmetrical driving response. INTERPRETATION: For the most part, this is a normal electroencephalogram. There was some mild slowing in the theta range, suggesting either drowsiness or mild encephalopathy. Charli Painter MD, PhD DEBORAH/ , 04:34 PM , 04:42 PM
[2017-09-21] MEDS ORDERED: GADODIAMIDE PF 287 MG/ML 20 ML VIAL (for RAD MRI) IVCONTRAST ONE (18:44)
--- NOTE | 2017-09-21 19:31 | RADRPT ---
EXAM DATE: 09/21/2017 7:19 PM EDT AGE/SEX: 56 years / Female INDICATIONS: Seizures. CLINICAL DATA: This is the patient's subsequent encounter. Patient reports that signs and symptoms h ave been present for 2 days and indicates a pain score of Nonresponsive. MEDICAL/SURGICAL HISTORY: . Epilepsy. Hysterectomy. COMPARISON: No prior [facility] exams available for comparison. TECHNIQUE: Multiplanar, multisequence examination of the brain was performed without and with 18 ml O mniscan (gadodiamide) contrast as a single exam dose. FINDINGS: Signal intensity of the brain is normal. Ventricles and cisterns are of normal size and configuration . Air-fluid level within the right maxillary sinus. Diffusion weighted images demonstrate no evidence for acute infarction. There is no evidence for hemorrhage. No masses are seen. CONCLUSION: 1. Right maxillary sinusitis. 2. The brain is normal in appearance. Electronically signed by: Jack Valladares MD 09/21/2017 7:29 PM EDT
[2017-09-21] MEDS ORDERED: SODIUM CHLORIDE 0.9% INJ 50 ML ONE (23:15)
[2017-09-22] VITALS (26 sets, daily range): BP systolic 113–139; BP diastolic 61–85; PULSE 65–82; TEMP 98–98.7; O2SAT 98–100
[2017-09-22] MEDS: levETIRAcetam 500 MG/5 ML UDC NG SCH ×3 (00:46→17:00)
[2017-09-22] MEDS: CHLORHEXIDINE GLUCONATE 2 % 1 PACK (2 CLOTHS) TOP SCH (04:00)
[2017-09-22] MEDS: LEVOTHYROXINE SODIUM 112 MCG TAB PO SCH (06:00)
--- NOTE | 2017-09-22 06:36 | HHI.CCPN ---
Subjective Remarks/Hospital Course 56 year old female presents after she was found by her lying on the couch snoring, with a decreased level of consciousness, unable to be aroused. The patient then had seizure activity noted that was described as generalized tonic-clonic seizure activity. The patient has a prior history of seizures, however according to the she had not had a seizure for a couple of years. Patient has a history of early onset of dementia and alcohol use disorder. She did drink alcohol today. The patient was postictal upon ambulance services arrival and then had seizure activity that lasted 2 minutes. Versed 2 mg was administered IM. The patient was again postictal, however she experienced seizure activity again and was given another versed 2 mg IV. The patient then proceeded to vomit and aspirate according to ambulance services with rhonchi and lower lobes. The patient's O2 saturation on nonrebreather was 90% and the patient was intubated with a 7.0 endotracheal tube that is 23 at the teeth on arrival. / Follows commands with hand squeeze bilaterally off sedation. Appears tremulous. MRI tentative for 11 AM. EEG pending. Keppra was not given this morning because the pill could not be crushed. Changing to liquid. Subjective: 09/22 EEG showed mild encephalopathy, no seizures. MRI is normal with no e/o mass. Had no cuff leak yesterday so started on decadron. Will diurese now with po lasix (has latex allergy, bumex IV out of stock). Followed up after diuresis and cuff leak present. Tolerating CPAP 5/5 and plan to extubate with airway equipment bedside. Objective Vital Signs Date Time Temp Pulse Resp B/P (MAP) Pulse Ox O2 Delivery O2 Flow Rate FiO2 09/22/17 06:00 80 09/22/17 04:35 100 35 09/22/17 03:00 98.7 124/73 (90) 09/21/17 15:00 16 09/21/17 01:21 Ventilator 09/21/17 01:00 15.00 Intake and Output 09/22/17 09/22/17 09/23/17 08:00 16:00 00:00 Intake Total 100 ml Output Total 775 ml Balance -675 ml Result Diagram: 09/21/17 0430 09/21/17 1133 Imaging Last 24 hours Impressions Chest X-Ray 09/20/172122 Signed Impressions: CONCLUSION: Perihilar and basilar atelectasis. No effusion. Elevated right hemidiaphragm. N o pneumothorax. Objective Remarks GENERAL: Well-nourished, well-developed patient. Off sedation, following commands. SKIN: Warm and dry. HEAD: Normocephalic. EYES: No scleral icterus. No injection or drainage. NECK: Supple, trachea midline. No JVD or lymphadenopathy. CARDIOVASCULAR: Regular rate and rhythm without murmurs, gallops, or rubs. RESPIRATORY: Breath sounds equal bilaterally. No accessory muscle use. GASTROINTESTINAL: Abdomen soft, non-tender, nondistended. : Iqbal in place with light yellow urine output. NEURO EXAM: Awake and alert on vent, following commands all extremities. A/P Assessment and Plan Acute Respiratory failure -Intubated for an airway protection -CPAP trial today -No cuff leak on 09/21. Received Decadron 10 mg IV, Lasix 60 p.o. Now cuff leak is present, extubate with airway equipment bedside Status epilepticus, resolved Seizure disorder CT brain 09/21 with ?mass L mid parietal lobe MRI 09/21 brain is normal. Findings consistent with right maxillary sinusitis -Loaded with fosphenytoin in the ED - No on Celebrex 200 mgPE q12 hours per neurology. -Continue Keppra 500 mg every 8 hours -EEG 09/21Mild slowing consistent with mild encephalopathy. No seizure. -Neurology following, Dr. Lynch Dementia Continue Aricept 5 mg p.o. daily Depression Zoloft 50 mg p.o. daily Anxiety Klonopin 0.5 mill grams p.o. twice daily Hypertension -Metoprolol 100 mg p.o. twice daily -Diovan 160 mg p.o. daily Hypokalemia Electrolyte replacement per protocol Alcohol use disorder -Thiamine folate and multivitamins -CIWA Hypothyroidism -Levothyroxine DVT GI prophylaxis -SCDs -Lovenox 40 sq daily -Pepcid Level 3 followup Chika Neff MD Sep 22, 2017 06:36
[2017-09-22] MEDS ORDERED: FUROSEMIDE 20 MG TAB OG-TUBE ONE (06:45)
[2017-09-22] MEDS ORDERED: DEXAMETHASONE SOD PHOS 20 MG/5 ML VIAL IV PUSH ONE (06:45)
[2017-09-22] MEDS: CHLORHEXIDINE 0.12% (ORAL KIT) 15 ML CUP MT SCH (08:00)
[2017-09-22] MEDS: ENOXAPARIN SODIUM 40 MG/0.4 ML SYRINGE SQ SCH (08:54)
[2017-09-22] MEDS: FAMOTIDINE 20 MG/2 ML VIAL IV PUSH SCH (08:54)
[2017-09-22] MEDS: DONEPEZIL HCL 5 MG TAB PO SCH (08:55)
[2017-09-22] MEDS: VALSARTAN 160 MG TAB PO SCH (08:55)
[2017-09-22] MEDS: SERTRALINE HCL 50 MG TAB PO SCH (08:55)
[2017-09-22] MEDS: METOPROLOL TARTRATE 100 MG TAB PO SCH ×2 (08:55→19:47)
[2017-09-22] MEDS: clonazePAM 0.5 MG TAB PO SCH ×2 (08:55→19:47)
[2017-09-22] MEDS: POTASSIUM CHLORIDE 25 MEQ EFFERVESCENT TAB NG SCH ×2 (08:56→10:30)
[2017-09-22] MEDS: SODIUM CHLORIDE 0.9% FLUSH 10 ML FLUSH IV FLUSH SCH ×2 (08:57→19:48)
[2017-09-22] MEDS: ARTIFICIAL TEARS OPTH SOLN 15 ML BTL EACH EYE SCH (08:57)
[2017-09-22] MEDS: DOCUSATE SODIUM 50 MG/SENNA 8.6 MG TAB PO SCH ×2 (08:57→19:47)
[2017-09-22] MEDS ORDERED: DEXAMETHASONE SOD PHOS 20 MG/5 ML VIAL IV PUSH SCH (09:00)
[2017-09-22] MEDS: FOSPHENYTOIN SODIUM 500 MG PE/10 ML VIAL IV SCH ×2 (11:00→23:00)
[2017-09-22] MEDS ORDERED: RESP: RACEPINEPHRINE 2.25% 0.5 ML NEB NEB ONE (13:00)
[2017-09-22] MEDS: levETIRAcetam 500 MG TAB PO SCH (18:00)
[2017-09-22 19:10] LABS: BICARBONATE 22.7 MEQ/L (21.0-32.0); CALCIUM 7.9 MG/DL (8.5-10.1); CREATININE 0.57 MG/DL (0.50-1.00)
[2017-09-22] MEDS: FAMOTIDINE 20 MG TAB PO SCH (19:47)
[2017-09-23] VITALS (12 sets, daily range): BP systolic 136–174; BP diastolic 74–89; PULSE 57–80; RESP 14–24; TEMP 97.6–98.3; O2SAT 93–100
[2017-09-23] MEDS: levETIRAcetam 500 MG TAB PO SCH ×3 (02:19→18:00)
[2017-09-23] MEDS: CHLORHEXIDINE GLUCONATE 2 % 1 PACK (2 CLOTHS) TOP SCH (04:00)
[2017-09-23] MEDS: LEVOTHYROXINE SODIUM 112 MCG TAB PO SCH (06:05)
[2017-09-23] MEDS ORDERED: DEXAMETHASONE SOD PHOS 20 MG/5 ML VIAL IV PUSH SCH (09:00)
--- NOTE | 2017-09-23 09:15 | HHI.PR ---
Subjective Remarks The patient was resting in bed comfortably. She said her last seizure was two years ago. She has been struggling with early onset dementia. Her was at the bedside and helped with the history. Discussed with nursing. Objective Vitals Vital Signs Date Time Temp Pulse Resp B/P (MAP) Pulse Ox O2 Delivery O2 Flow Rate FiO2 09/23/17 07:53 Nasal Cannula 2.00 09/23/17 06:00 78 09/23/17 04:00 74 09/23/17 03:00 97.6 77 141/77 (98) 100 09/23/17 02:00 66 09/23/17 00:00 68 09/22/17 23:00 98.2 74 125/85 (98) 100 09/22/17 22:00 68 09/22/17 20:25 100 Nasal Cannula 2.00 09/22/17 20:00 75 09/22/17 19:00 98.2 74 130/61 (84) 100 09/22/17 18:00 80 09/22/17 17:00 98.0 74 113/62 (79) 100 09/22/17 16:00 75 115/68 (84) 100 09/22/17 16:00 74 09/22/17 15:00 77 114/67 (83) 09/22/17 15:00 74 09/22/17 14:00 65 121/73 (89) 100 09/22/17 14:00 80 09/22/17 13:15 Nasal Cannula 35 09/22/17 13:13 98 Nasal Cannula 4 09/22/17 13:13 98 Nasal Cannula 4.00 09/22/17 13:00 74 132/71 (91) 100 09/22/17 12:00 74 09/22/17 12:00 72 122/73 (89) 100 09/22/17 12:00 35 09/22/17 11:01 81 139/76 (97) 100 09/22/17 11:00 79 100 09/22/17 10:00 74 131/68 (89) 100 09/22/17 10:00 80 I/O 09/22/17 09/22/17 09/22/17 09/23/17 09/23/17 09/23/17 07:00 15:00 23:00 07:00 15:00 23:00 Intake Total 100 ml 400 ml 100 ml Output Total 775 ml 1900 ml 1275 ml Balance -675 ml -1500 ml -1175 ml Intake Oral 400 ml 100 ml IV Total 100 ml Output Urine Total 775 ml 1900 ml 1275 ml # Bowel Movements 1 0 1 Result Diagram: 09/21/17 0430 09/22/17 1814 Imaging Last Impressions Head CT 09/21/172122 Signed Impressions: CONCLUSION: 1. Findings suspicious for possible mass in the left mid parietal lobe. Recomm end MRI of the brain with and without contrast for further evaluation. Brain MRI 09/21/17 0000 Signed Impressions: CONCLUSION: 1. Right maxillary sinusitis. 2. The brain is normal in appearance. Chest X-Ray 09/20/172122 Signed Impressions: CONCLUSION: Perihilar and basilar atelectasis. No effusion. Elevated right hemidiaphragm. N o pneumothorax. Objective Remarks GENERAL: Well-nourished, well-developed patient. SKIN: Warm and dry. HEAD: Normocephalic. EYES: No scleral icterus. No injection or drainage. NECK: Supple, trachea midline. No JVD or lymphadenopathy. CARDIOVASCULAR: Regular rate and rhythm without murmurs, gallops, or rubs. RESPIRATORY: Breath sounds equal bilaterally. No accessory muscle use. GASTROINTESTINAL: Abdomen soft, non-tender, nondistended. : Iqbal in place with light yellow urine output. NEURO EXAM: Awake and alert, following commands all extremities. Procedures Intubation/ extubation A/P Assessment and Plan Status epilepticus CT brain 09/21 with ?mass L mid parietal lobe. MRI 09/21 brain is normal. Findings consistent with right maxillary sinusitis. Loaded with fosphenytoin in the ED. Neurology consult appreciated. EEG 09/21Mild slowing consistent with mild encephalopathy. No seizure. - on Celebrex 200 mg q12 hours per neurology. - Continue Keppra 500 mg every 8 hours. - seizure precautions, neuro checks. - PT/ OT. - D/c Iqbal. Acute respiratory failure Intubated for a airway protection. Now on nasal cannula. - oxygen and nebs as needed. - incentive spirometry. Hypertension Well controlled. - Metoprolol 100 mg p.o. twice daily. - Diovan 160 mg p.o. daily. Alcohol use disorder The pt has Korsakoff Syndrome. - Aricept. - Thiamine folate and multivitamins. - CIWA. DVT GI prophylaxis -SCDs -Lovenox 40 sq daily Discharge Planning Transfer to floor Aime French DO Sep 23, 2017 09:15
[2017-09-23] MEDS: FOSPHENYTOIN SODIUM 500 MG PE/10 ML VIAL IV SCH (11:00)
[2017-09-23] MEDS: DONEPEZIL HCL 5 MG TAB PO SCH (11:14)
[2017-09-23] MEDS: METOPROLOL TARTRATE 100 MG TAB PO SCH ×2 (11:14→20:52)
[2017-09-23] MEDS: DOCUSATE SODIUM 50 MG/SENNA 8.6 MG TAB PO SCH ×2 (11:14→20:52)
[2017-09-23] MEDS: clonazePAM 0.5 MG TAB PO SCH ×2 (11:14→20:52)
[2017-09-23] MEDS: FAMOTIDINE 20 MG TAB PO SCH ×2 (11:14→20:52)
[2017-09-23] MEDS: SERTRALINE HCL 50 MG TAB PO SCH (11:14)
[2017-09-23] MEDS: VALSARTAN 160 MG TAB PO SCH (11:14)
[2017-09-23] MEDS: ENOXAPARIN SODIUM 40 MG/0.4 ML SYRINGE SQ SCH (11:15)
[2017-09-23] MEDS: SODIUM CHLORIDE 0.9% FLUSH 10 ML FLUSH IV FLUSH SCH ×2 (12:31→20:54)
[2017-09-23] MEDS: SODIUM CHLORIDE 0.9% FLUSH 10 ML FLUSH IV FLUSH PRN (12:31)
--- NOTE | 2017-09-23 17:09 | HHI.PR ---
Review/Management Diagnosis/Plan: (1) Seizure ICD Codes: R56.9 - Unspecified convulsions Status: Chronic Plan: Possible breakthrough seizure exclude noncompliance eeg- no sz. mri brain- naicp spouse states pt is attempting to get disability. also, states she has some "dementia" dilantin therapeutic once corrected for albumin Recommendations continue on current sz meds; dilantin can be changed to po ok for floor with tele f/u with Dr. Hallman in our office on discharge No driving, swimming, operating heavy machinery (2) Unspecified psychosis ICD Codes: F29 - Unspecified psychosis not due to a substance or known physiological condition Status: Chronic Plan: Seen by psychiatry previous admissions Also a lumbar puncture for gait changes which is felt to be psychiatric by the neurology service. Lumbar puncture was negative for herpes PCR, negative for MS, minimally elevated CSF protein (3) HTN (hypertension) ICD Codes: I10 - HTN (hypertension) Status: Chronic (4) Adjustment disorder with anxiety ICD Codes: F43.22 - Adjustment disorder with anxiety Status: Chronic Subjective Subjective Comments No acute events reported No headache No chest pain No dyspnea Active Medications Current Medications Medications (Trade) Dose Ordered Sig/Yarely Route Start Time Stop Time Status Last Admin (KlonoPIN) 0.5 mg BID PO 09/21/17 09:00 09/23/17 11:14 (Aricept) 5 mg DAILY PO 09/21/17 09:00 09/23/17 11:14 (Synthroid) 112 mcg DAILY@0600 PO 09/21/17 06:00 09/23/17 06:05 (Lopressor) 100 mg BID PO 09/21/17 09:00 09/23/17 11:14 (Zoloft) 50 mg DAILY PO 09/21/17 09:00 09/23/17 11:14 (Diovan) 160 mg DAILY PO 09/21/17 09:00 09/23/17 11:14 (NS Flush) 2 ml UNSCH PRN IV FLUSH 09/20/17 23:30 09/23/17 12:31 (NS Flush) 2 ml BID IV FLUSH 09/21/17 09:00 09/23/17 12:31 (Tylenol) 650 mg Q6H PRN PO 09/20/17 23:30 (Ativan Inj) 1 mg Q1H PRN IV PUSH 09/20/17 23:30 (Zofran Odt) 4 mg Q6H PRN PO 09/20/17 23:45 09/23/17 11:14 (Restoril) 15 mg HS PRN PO 09/20/17 23:30 (Duoneb Neb) 1 ampule Q2HR NEB PRN INH 09/20/17 23:30 (Lovenox Inj) 40 mg Q24H SQ 09/21/17 09:00 09/23/17 11:15 ([facility] [place] [facility]) 1 Q361D XX 09/20/17 23:30 (Chlorhexidine 2% Cloth) 3 pack Taper DAILY@04 TOP 09/21/17 04:00 09/17/18 03:59 09/23/17 04:00 (Chlorhexidine 2% Cloth) 3 pack UNSCH PRN TOP 09/20/17 23:30 (Andie-Colace) 1 tab BID PO 09/21/17 09:00 09/23/17 11:14 (Milk Of Magnesia Liq) 30 ml Q12H PRN PO 09/20/17 23:30 (Senokot) 17.2 mg Q12H PRN PO 09/20/17 23:30 (Dulcolax Supp) 10 mg DAILY PRN RECTAL 09/20/17 23:30 (Lactulose Liq) 30 ml DAILY PRN PO 09/20/17 23:30 Potassium Chloride 100 ml @ 50 mls/hr Q2H PRN IV 09/20/17 23:30 Potassium Chloride 100 ml @ 50 mls/hr Q2H PRN IV 09/20/17 23:30 09/21/17 20:26 (K-Lyte Cl Eff) 50 meq UNSCH PRN PO 09/20/17 23:30 Potassium Chloride 100 ml @ 25 mls/hr UNSCH PRN IV 09/20/17 23:30 Potassium Chloride 100 ml @ 50 mls/hr Q2H PRN IV 09/20/17 23:30 Magnesium Sulfate 4 gm/Sodium Chloride 100 ml @ 50 mls/hr UNSCH PRN IV 09/20/17 23:30 (Mag-Ox) 800 mg UNSCH PRN PO 09/20/17 23:30 Magnesium Sulfate 2 gm/Sodium Chloride 100 ml @ 50 mls/hr UNSCH PRN IV 09/20/17 23:30 (K-Phos) 2,000 mg Q4H PRN PO 09/20/17 23:30 Sodium Phosphate 30 mmol/Sodium Chloride 250 ml @ 42 mls/hr UNSCH PRN IV 09/20/17 23:30 (K-Phos) 2,000 mg UNSCH PRN PO/TUBE 09/20/17 23:30 Potassium Phosphate 30 mmol/ Sodium Chloride 260 ml @ 42 mls/hr UNSCH PRN IV 09/20/17 23:30 (Romazicon Inj) 0.2 mg Q1M PRN IV PUSH 09/21/17 00:15 (Ativan) 1 mg Q4H PRN PO 09/21/17 00:15 (Ativan Inj) 1 mg Q4H PRN IV PUSH 09/21/17 00:15 (Ativan) 2 mg Q2H PRN PO 09/21/17 00:15 (Ativan Inj) 2 mg Q2H PRN IV PUSH 09/21/17 00:15 (Ativan Inj) 2 mg Q1H PRN IV PUSH 09/21/17 00:15 09/21/17 05:45 (Ativan Inj) 2 mg Q15M PRN IV PUSH 09/21/17 00:15 (Cerebyx Inj) 200 mgpe Q12H IV 09/21/17 11:00 09/23/17 11:00 (Pepcid) 20 mg BID PO 09/22/17 21:00 09/23/17 11:14 (Keppra) 500 mg Q8H PO 09/22/17 18:00 09/23/17 11:14 Allergies Allergies Coded Allergies enalaprilat (Unverified Allergy, Severe, Swelling, 08/20/17) latex (Unverified Allergy, Severe, Swelling, 08/20/17) lidocaine (Unverified Allergy, Severe, states blue lips and chest pressure, 08/20/17) morphine (Unverified Allergy, Severe, PANIC ATTACK, 08/20/17) penicillin G (Unverified Allergy, Severe, FACIAL SWELLING, 08/20/17) Review of Systems Eye: Negative ENMT: Negative Respiratory: Negative Cardiovascular: Negative Neurologic: Negative Psychiatric: Negative All other ROS: ROS reviewed as documented in chart Exam I&O / VS Vital Signs Date Time Temp Pulse Resp B/P (MAP) Pulse Ox O2 Delivery O2 Flow Rate FiO2 09/23/17 16:00 98.0 60 155/78 (103) 99 09/23/17 16:00 60 09/23/17 12:00 68 09/23/17 12:00 98.3 64 156/75 (102) 98 09/23/17 09:00 72 146/74 (98) 93 09/23/17 08:00 80 09/23/17 08:00 98.0 68 136/75 (95) 93 09/23/17 07:53 Nasal Cannula 2.00 09/23/17 07:00 67 149/89 (109) 09/23/17 06:00 78 09/23/17 04:00 74 09/23/17 03:00 97.6 77 141/77 (98) 100 09/23/17 02:00 66 09/23/17 00:00 68 09/22/17 23:00 98.2 74 125/85 (98) 100 09/22/17 22:00 68 09/22/17 20:25 100 Nasal Cannula 2.00 09/22/17 20:00 75 09/22/17 19:00 98.2 74 130/61 (84) 100 09/22/17 18:00 80 Exam Comments awake, alert, ox 2-3, a little groggy, follows, articulate, eomi, face sym, guo to gravity Objective Micro and Labs Laboratory Tests Test 09/22/17 18:14 09/23/17 04:29 Blood Urea Nitrogen 5 Creatinine 0.57 Random Glucose 95 Calcium Level 7.9 Sodium Level 136 Potassium Level 3.9 Chloride Level 101 Carbon Dioxide Level 22.7 Anion Gap 12 Estimat Glomerular Filtration Rate 111 Phenytoin (Dilantin) Level 9.7 Problem Qualifiers (1) HTN (hypertension): Qualified Codes: I10 - Essential (primary) hypertension David Lynch MD Sep 23, 2017 17:09
[2017-09-23] MEDS: PHENYTOIN SODIUM 100 MG CAP PO SCH (20:52)
[2017-09-23] MEDS: PHENYTOIN SODIUM 30 MG CAP PO SCH (20:52)
[2017-09-24] VITALS (8 sets, daily range): BP systolic 133–159; BP diastolic 71–96; PULSE 55–78; RESP 14–20; TEMP 97.7–98.8; O2SAT 93–100
[2017-09-24] MEDS: levETIRAcetam 500 MG TAB PO SCH ×3 (01:59→17:49)
[2017-09-24] MEDS: PHENYTOIN SODIUM 30 MG CAP PO SCH (03:55)
[2017-09-24] MEDS: CHLORHEXIDINE GLUCONATE 2 % 1 PACK (2 CLOTHS) TOP SCH ×2 (03:56→19:55)
[2017-09-24] MEDS: PHENYTOIN SODIUM 100 MG CAP PO SCH ×3 (03:56→22:17)
[2017-09-24] MEDS: LEVOTHYROXINE SODIUM 112 MCG TAB PO SCH (05:49)
[2017-09-24 06:18] LABS: HEMATOCRIT 29.6 % (35.0-46.0); HEMOGLOBIN 10.3 GM/DL (11.6-15.3); MEAN CELL VOLUME 98.8 FL (80.0-100.0); MEAN CORPUSCULAR HEMOGLOBIN 34.5 PG (27.0-34.0); MEAN CORPUSCULAR HGB CONC 34.9 % (32.0-36.0); MEAN PLATELET VOLUME 8.8 FL (7.0-11.0); PLATELET COUNT 209 TH/MM3 (150-450); RED BLOOD COUNT 2.99 MIL/MM3 (4.00-5.30); RED CELL DISTRIBUTION WIDTH 12.7 % (11.6-17.2); WHITE BLOOD COUNT 7.3 TH/MM3 (4.0-11.0)
[2017-09-24 06:59] LABS: BICARBONATE 26.8 MEQ/L (21.0-32.0); CALCIUM 7.8 MG/DL (8.5-10.1); CREATININE 0.42 MG/DL (0.50-1.00); PHENYTOIN (DILANTIN) 7.3 MCG/ML (10.0-20.0)
[2017-09-24] MEDS: DONEPEZIL HCL 5 MG TAB PO SCH (07:39)
[2017-09-24] MEDS: FAMOTIDINE 20 MG TAB PO SCH ×2 (07:39→22:17)
[2017-09-24] MEDS: VALSARTAN 160 MG TAB PO SCH (07:39)
[2017-09-24] MEDS: SODIUM CHLORIDE 0.9% FLUSH 10 ML FLUSH IV FLUSH PRN (07:39)
[2017-09-24] MEDS: METOPROLOL TARTRATE 100 MG TAB PO SCH ×2 (07:39→22:17)
[2017-09-24] MEDS: clonazePAM 0.5 MG TAB PO SCH ×2 (07:39→22:17)
[2017-09-24] MEDS: SERTRALINE HCL 50 MG TAB PO SCH (07:39)
[2017-09-24] MEDS: SODIUM CHLORIDE 0.9% FLUSH 10 ML FLUSH IV FLUSH SCH ×2 (07:39→22:19)
[2017-09-24] MEDS: POTASSIUM CHLOR 20 MEQ PREMIX 100 ML IV PRN (07:40)
[2017-09-24] MEDS: ENOXAPARIN SODIUM 40 MG/0.4 ML SYRINGE SQ SCH (07:40)
--- NOTE | 2017-09-24 08:22 | HHI.PR ---
Review/Management Diagnosis/Plan: (1) Seizure ICD Codes: R56.9 - Unspecified convulsions Status: Chronic Plan: Possible breakthrough seizure exclude noncompliance eeg- no sz. mri brain- naicp spouse states pt is attempting to get disability. also, states she has some "dementia" dilantin therapeutic once corrected for albumin Recommendations Dilantin increased to 150 mg po 3 times daily; follow-up Dilantin level 2-3 days she can call the office and arrange follow-up with Dr. Hallman/Darline next week in our office Continue Keppra Discharge planning today f/u with Dr. Hallman in our office on discharge No driving, swimming, operating heavy machinery (2) Unspecified psychosis ICD Codes: F29 - Unspecified psychosis not due to a substance or known physiological condition Status: Chronic Plan: Seen by psychiatry previous admissions Also a lumbar puncture for gait changes which is felt to be psychiatric by the neurology service. Lumbar puncture was negative for herpes PCR, negative for MS, minimally elevated CSF protein (3) HTN (hypertension) ICD Codes: I10 - HTN (hypertension) Status: Chronic (4) Adjustment disorder with anxiety ICD Codes: F43.22 - Adjustment disorder with anxiety Status: Chronic Subjective Subjective Comments No acute events reported No headache No chest pain No dyspnea Active Medications Current Medications Medications (Trade) Dose Ordered Sig/Yarely Route Start Time Stop Time Status Last Admin (KlonoPIN) 0.5 mg BID PO 09/21/17 09:00 09/24/17 07:39 (Aricept) 5 mg DAILY PO 09/21/17 09:00 09/24/17 07:39 (Synthroid) 112 mcg DAILY@0600 PO 09/21/17 06:00 09/24/17 05:49 (Lopressor) 100 mg BID PO 09/21/17 09:00 09/24/17 07:39 (Zoloft) 50 mg DAILY PO 09/21/17 09:00 09/24/17 07:39 (Diovan) 160 mg DAILY PO 09/21/17 09:00 09/24/17 07:39 (NS Flush) 2 ml UNSCH PRN IV FLUSH 09/20/17 23:30 09/24/17 07:39 (NS Flush) 2 ml BID IV FLUSH 09/21/17 09:00 09/24/17 07:39 (Tylenol) 650 mg Q6H PRN PO 09/20/17 23:30 (Ativan Inj) 1 mg Q1H PRN IV PUSH 09/20/17 23:30 (Zofran Odt) 4 mg Q6H PRN PO 09/20/17 23:45 09/23/17 11:14 (Restoril) 15 mg HS PRN PO 09/20/17 23:30 (Duoneb Neb) 1 ampule Q2HR NEB PRN INH 09/20/17 23:30 (Lovenox Inj) 40 mg Q24H SQ 09/21/17 09:00 09/24/17 07:40 ([facility]) 1 Q361D XX 09/20/17 23:30 (Chlorhexidine 2% Cloth) 3 pack Taper DAILY@04 TOP 09/21/17 04:00 09/17/18 03:59 09/24/17 03:56 (Chlorhexidine 2% Cloth) 3 pack UNSCH PRN TOP 09/20/17 23:30 (Andie-Colace) 1 tab BID PO 09/21/17 09:00 09/23/17 20:52 (Milk Of Magnesia Liq) 30 ml Q12H PRN PO 09/20/17 23:30 (Senokot) 17.2 mg Q12H PRN PO 09/20/17 23:30 (Dulcolax Supp) 10 mg DAILY PRN RECTAL 09/20/17 23:30 (Lactulose Liq) 30 ml DAILY PRN PO 09/20/17 23:30 Potassium Chloride 100 ml @ 50 mls/hr Q2H PRN IV 09/20/17 23:30 Potassium Chloride 100 ml @ 50 mls/hr Q2H PRN IV 09/20/17 23:30 09/24/17 07:40 (K-Lyte Cl Eff) 50 meq UNSCH PRN PO 09/20/17 23:30 Potassium Chloride 100 ml @ 25 mls/hr UNSCH PRN IV 09/20/17 23:30 Potassium Chloride 100 ml @ 50 mls/hr Q2H PRN IV 09/20/17 23:30 Magnesium Sulfate 4 gm/Sodium Chloride 100 ml @ 50 mls/hr UNSCH PRN IV 09/20/17 23:30 (Mag-Ox) 800 mg UNSCH PRN PO 09/20/17 23:30 Magnesium Sulfate 2 gm/Sodium Chloride 100 ml @ 50 mls/hr UNSCH PRN IV 09/20/17 23:30 (K-Phos) 2,000 mg Q4H PRN PO 09/20/17 23:30 Sodium Phosphate 30 mmol/Sodium Chloride 250 ml @ 42 mls/hr UNSCH PRN IV 09/20/17 23:30 (K-Phos) 2,000 mg UNSCH PRN PO/TUBE 09/20/17 23:30 Potassium Phosphate 30 mmol/ Sodium Chloride 260 ml @ 42 mls/hr UNSCH PRN IV 09/20/17 23:30 (Romazicon Inj) 0.2 mg Q1M PRN IV PUSH 09/21/17 00:15 (Ativan) 1 mg Q4H PRN PO 09/21/17 00:15 (Ativan Inj) 1 mg Q4H PRN IV PUSH 09/21/17 00:15 (Ativan) 2 mg Q2H PRN PO 09/21/17 00:15 (Ativan Inj) 2 mg Q2H PRN IV PUSH 09/21/17 00:15 (Ativan Inj) 2 mg Q1H PRN IV PUSH 09/21/17 00:15 09/21/17 05:45 (Ativan Inj) 2 mg Q15M PRN IV PUSH 09/21/17 00:15 (Pepcid) 20 mg BID PO 09/22/17 21:00 09/24/17 07:39 (Keppra) 500 mg Q8H PO 09/22/17 18:00 09/24/17 01:59 (Dilantin) 100 mg Q8H PO 09/23/17 20:00 09/24/17 03:56 (Dilantin) 30 mg Q8H PO 09/23/17 20:00 09/24/17 03:55 Allergies Allergies Coded Allergies enalaprilat (Unverified Allergy, Severe, Swelling, 08/20/17) latex (Unverified Allergy, Severe, Swelling, 08/20/17) lidocaine (Unverified Allergy, Severe, states blue lips and chest pressure, 08/20/17) morphine (Unverified Allergy, Severe, PANIC ATTACK, 08/20/17) penicillin G (Unverified Allergy, Severe, FACIAL SWELLING, 08/20/17) Review of Systems Eye: Negative ENMT: Negative Respiratory: Negative Cardiovascular: Negative Neurologic: Negative Psychiatric: Negative All other ROS: ROS reviewed as documented in chart Exam I&O / VS Vital Signs Date Time Temp Pulse Resp B/P (MAP) Pulse Ox O2 Delivery O2 Flow Rate FiO2 09/24/17 07:59 97 Nasal Cannula 2.00 09/24/17 06:00 69 09/24/17 04:00 98.8 57 20 158/84 (108) 99 09/24/17 00:00 55 09/24/17 00:00 98.3 55 14 153/96 (115) 100 09/23/17 21:02 100 Nasal Cannula 2.00 09/23/17 20:00 98.2 57 14 174/81 (112) 100 09/23/17 20:00 57 09/23/17 16:00 98.0 60 155/78 (103) 99 09/23/17 16:00 60 09/23/17 12:00 68 09/23/17 12:00 98.3 64 156/75 (102) 98 09/23/17 09:00 72 146/74 (98) 93 Exam Comments Awake alert oriented 3, pleasant, calm, follows, articulate, eomi, face sym, guo to gravity Objective Micro and Labs Laboratory Tests Test 09/24/17 04:42 White Blood Count 7.3 Red Blood Count 2.99 Hemoglobin 10.3 Hematocrit 29.6 Mean Corpuscular Volume 98.8 Mean Corpuscular Hemoglobin 34.5 Mean Corpuscular Hemoglobin Concent 34.9 Red Cell Distribution Width 12.7 Platelet Count 209 Mean Platelet Volume 8.8 Blood Urea Nitrogen 6 Creatinine 0.42 Random Glucose 73 Calcium Level 7.8 Magnesium Level 1.0 Sodium Level 135 Potassium Level 3.0 Chloride Level 97 Carbon Dioxide Level 26.8 Anion Gap 11 Estimat Glomerular Filtration Rate 157 Phenytoin (Dilantin) Level 7.3 Problem Qualifiers (1) HTN (hypertension): Qualified Codes: I10 - Essential (primary) hypertension David Lynch MD Sep 24, 2017 08:22
[2017-09-24] MEDS: DOCUSATE SODIUM 50 MG/SENNA 8.6 MG TAB PO SCH ×2 (08:35→22:17)
[2017-09-24] MEDS ORDERED: PHENYTOIN SODIUM 100 MG CAP PO ONE (09:15)
--- NOTE | 2017-09-24 10:20 | HHI.PR ---
Subjective Remarks The pt was resting comfortably in bed. She says she has not moved around much today. She said she was breathing comfortably. She denied any seizure activity. Discussed with nursing at the bedside. Objective Vitals Vital Signs Date Time Temp Pulse Resp B/P (MAP) Pulse Ox O2 Delivery O2 Flow Rate FiO2 09/24/17 08:00 97.8 78 20 159/72 (101) 93 09/24/17 08:00 78 09/24/17 07:59 97 Nasal Cannula 2.00 09/24/17 06:00 69 09/24/17 04:00 98.8 57 20 158/84 (108) 99 09/24/17 00:00 55 09/24/17 00:00 98.3 55 14 153/96 (115) 100 09/23/17 21:02 100 Nasal Cannula 2.00 09/23/17 20:00 98.2 57 14 174/81 (112) 100 09/23/17 20:00 57 09/23/17 16:00 98.0 60 155/78 (103) 99 09/23/17 16:00 60 09/23/17 12:00 68 09/23/17 12:00 98.3 64 156/75 (102) 98 I/O 09/23/17 09/23/17 09/23/17 09/24/17 09/24/17 09/24/17 07:00 15:00 23:00 07:00 15:00 23:00 Intake Total 100 ml 250 ml 170 ml Output Total 1275 ml 1050 ml 500 ml Balance -1175 ml -800 ml -330 ml Intake Oral 100 ml 250 ml 170 ml Output Urine Total 1275 ml 1050 ml 500 ml # Voids 2 # Bowel Movements 1 1 0 Result Diagram: 09/24/17 0442 09/24/17 0442 Imaging Last Impressions Head CT 09/21/172122 Signed Impressions: CONCLUSION: 1. Findings suspicious for possible mass in the left mid parietal lobe. Recomm end MRI of the brain with and without contrast for further evaluation. Brain MRI 09/21/17 0000 Signed Impressions: CONCLUSION: 1. Right maxillary sinusitis. 2. The brain is normal in appearance. Chest X-Ray 09/20/172122 Signed Impressions: CONCLUSION: Perihilar and basilar atelectasis. No effusion. Elevated right hemidiaphragm. N o pneumothorax. Objective Remarks GENERAL: Well-nourished, well-developed patient. SKIN: Warm and dry. HEAD: Normocephalic. EYES: No scleral icterus. No injection or drainage. NECK: Supple, trachea midline. No JVD or lymphadenopathy. CARDIOVASCULAR: Regular rate and rhythm without murmurs, gallops, or rubs. RESPIRATORY: Breath sounds equal bilaterally. No accessory muscle use. GASTROINTESTINAL: Abdomen soft, non-tender, nondistended. NEURO EXAM: Awake and alert, following commands all extremities. Procedures Intubation/ extubation A/P Assessment and Plan Status epilepticus CT brain 09/21 with ?mass L mid parietal lobe. MRI 09/21 brain is normal. Findings consistent with right maxillary sinusitis. Loaded with fosphenytoin in the ED. Neurology consult appreciated. EEG 09/21Mild slowing consistent with mild encephalopathy. No seizure. - on Keppra and phenytoin per neurology. - seizure precautions, neuro checks. - PT/ OT. Acute respiratory failure Intubated for a airway protection. Now on nasal cannula. - oxygen and nebs as needed. - incentive spirometry. Hypokalemia/ Hypomagnesemia/ Hypoglycemia S/t decreased PO intake. - replete with IV and PO and monitor. - D5NS. Hypertension Well controlled. - Metoprolol 100 mg p.o. twice daily. - Diovan 160 mg p.o. daily. Alcohol use disorder The pt has Korsakoff Syndrome. - Aricept. - Thiamine folate and multivitamins. - CIWA. Anemia Hgb stable. - check B12, folate and iron studies. DVT GI prophylaxis -SCDs -Lovenox 40 sq daily Discharge Planning Transfer to floor Aime French DO Sep 24, 2017 10:20
[2017-09-24] MEDS ORDERED: POTASSIUM CHLORIDE 20 MEQ CONTROLLED RELEASE TAB PO ONE (10:30)
[2017-09-24] MEDS: DEXT 5%-NACL 0.9% 1000 ML INJ 1,000 ML IV SCH ×2 (10:58→23:29)
[2017-09-24 11:24] LABS: % SATURATION IRON PROFILE 25.2 % (20-50); FERRITIN 352 NG/ML (8-252); FOLATE 17.8 NG/ML (3.1-17.5); IRON (FE) 41 MCG/DL (50-170); TOTAL IRON BINDING CAPACITY 162 MCG/DL (250-450)
[2017-09-24] MEDS: PHENYTOIN 50 MG CHEWABLE TAB PO SCH ×2 (12:25→22:17)
[2017-09-25] VITALS (8 sets, daily range): BP systolic 124–151; BP diastolic 71–78; PULSE 63–82; RESP 14–18; TEMP 97.7–98.5; O2SAT 92–100
[2017-09-25] MEDS: levETIRAcetam 500 MG TAB PO SCH ×3 (02:20→17:17)
[2017-09-25 04:44] LABS: HEMATOCRIT 29.9 % (35.0-46.0); HEMOGLOBIN 10.5 GM/DL (11.6-15.3); MEAN CELL VOLUME 97.9 FL (80.0-100.0); MEAN CORPUSCULAR HEMOGLOBIN 34.5 PG (27.0-34.0); MEAN CORPUSCULAR HGB CONC 35.2 % (32.0-36.0); MEAN PLATELET VOLUME 8.7 FL (7.0-11.0); PLATELET COUNT 225 TH/MM3 (150-450); RED BLOOD COUNT 3.05 MIL/MM3 (4.00-5.30); RED CELL DISTRIBUTION WIDTH 12.8 % (11.6-17.2); WHITE BLOOD COUNT 5.3 TH/MM3 (4.0-11.0)
[2017-09-25 05:05] LABS: BICARBONATE 29.1 MEQ/L (21.0-32.0); CALCIUM 7.8 MG/DL (8.5-10.1); CREATININE 0.47 MG/DL (0.50-1.00); MAGNESIUM 1.5 MG/DL (1.5-2.5)
[2017-09-25 05:07] LABS: PHENYTOIN (DILANTIN) 7.7 MCG/ML (10.0-20.0)
[2017-09-25] MEDS: LEVOTHYROXINE SODIUM 112 MCG TAB PO SCH (05:17)
[2017-09-25] MEDS: PHENYTOIN 50 MG CHEWABLE TAB PO SCH ×3 (05:18→21:08)
[2017-09-25] MEDS: DEXT 5%-NACL 0.9% 1000 ML INJ 1,000 ML IV SCH ×3 (05:25→21:09)
[2017-09-25] MEDS: PHENYTOIN SODIUM 100 MG CAP PO SCH ×3 (05:25→21:07)
[2017-09-25] MEDS: DONEPEZIL HCL 5 MG TAB PO SCH (08:39)
[2017-09-25] MEDS: METOPROLOL TARTRATE 100 MG TAB PO SCH ×2 (08:39→21:08)
[2017-09-25] MEDS: VALSARTAN 160 MG TAB PO SCH (08:40)
[2017-09-25] MEDS: SERTRALINE HCL 50 MG TAB PO SCH (08:40)
[2017-09-25] MEDS: clonazePAM 0.5 MG TAB PO SCH ×2 (08:40→21:08)
[2017-09-25] MEDS: SODIUM CHLORIDE 0.9% FLUSH 10 ML FLUSH IV FLUSH SCH ×2 (08:40→21:08)
[2017-09-25] MEDS: DOCUSATE SODIUM 50 MG/SENNA 8.6 MG TAB PO SCH ×2 (08:40→21:08)
[2017-09-25] MEDS: FAMOTIDINE 20 MG TAB PO SCH ×2 (08:40→21:08)
[2017-09-25] MEDS: ENOXAPARIN SODIUM 40 MG/0.4 ML SYRINGE SQ SCH (08:40)
[2017-09-25] MEDS: POTASSIUM CHLORIDE 20 MEQ CONTROLLED RELEASE TAB PO SCH ×2 (11:16→14:39)
[2017-09-25] MEDS: MAGNESIUM SULFATE 1 GM PREMIX 100 ML IV SCH ×2 (11:16→12:22)
--- NOTE | 2017-09-25 15:19 | HHI.PR ---
Subjective Remarks The patient has not been eating that much. Her was concerned about that. No further seizure activity reported. Discussed with nursing. Objective Vitals Vital Signs Date Time Temp Pulse Resp B/P (MAP) Pulse Ox O2 Delivery O2 Flow Rate FiO2 09/25/17 12:00 98.2 73 16 138/71 (93) 95 09/25/17 10:39 70 09/25/17 08:00 98.4 82 16 128/72 (90) 94 09/25/17 04:00 98.5 69 18 151/78 (102) 92 09/25/17 00:00 97.7 63 18 133/71 (91) 100 09/24/17 20:00 97.7 63 18 133/71 (91) 100 09/24/17 16:00 57 09/24/17 16:00 98.0 59 16 137/71 (93) 100 I/O 09/24/17 09/24/17 09/24/17 09/25/17 09/25/17 09/25/17 07:00 15:00 23:00 07:00 15:00 23:00 Intake Total 170 ml 200 ml 799 ml 984 ml Output Total 500 ml 900 ml Balance -330 ml 200 ml -101 ml 984 ml Intake Oral 170 ml 150 ml IV Total 200 ml 649 ml 984 ml Output Urine Total 500 ml 900 ml # Voids 2 3 # Bowel Movements 0 Result Diagram: 09/25/17 0404 09/25/17 0404 Imaging Last Impressions Head CT 09/21/172122 Signed Impressions: CONCLUSION: 1. Findings suspicious for possible mass in the left mid parietal lobe. Recomm end MRI of the brain with and without contrast for further evaluation. Brain MRI 09/21/17 0000 Signed Impressions: CONCLUSION: 1. Right maxillary sinusitis. 2. The brain is normal in appearance. Chest X-Ray 09/20/172122 Signed Impressions: CONCLUSION: Perihilar and basilar atelectasis. No effusion. Elevated right hemidiaphragm. N o pneumothorax. Objective Remarks GENERAL: Well-nourished, well-developed patient. SKIN: Warm and dry. HEAD: Normocephalic. EYES: No scleral icterus. No injection or drainage. NECK: Supple, trachea midline. No JVD or lymphadenopathy. CARDIOVASCULAR: Regular rate and rhythm without murmurs, gallops, or rubs. RESPIRATORY: Breath sounds equal bilaterally. No accessory muscle use. GASTROINTESTINAL: Abdomen soft, non-tender, nondistended. NEURO EXAM: Awake and alert, following commands all extremities. Procedures Intubation/ extubation A/P Assessment and Plan Status epilepticus CT brain 09/21 with ?mass L mid parietal lobe. MRI 09/21 brain is normal. Findings consistent with right maxillary sinusitis. Loaded with fosphenytoin in the ED. Neurology consult appreciated. EEG 09/21Mild slowing consistent with mild encephalopathy. No seizure. - Phenytoin increased per neurology. Continue Keppra. - follow phenytoin levels. - seizure precautions, neuro checks. - PT/ OT. Awaiting rehab options. Acute respiratory failure Intubated for a airway protection. - oxygen and nebs as needed. - incentive spirometry. - encourage ambulation. Hypokalemia/ Hypomagnesemia/ Hypoglycemia S/t decreased PO intake. - replete with IV and PO and monitor. - D5NS. Hypertension Well controlled. - Metoprolol 100 mg p.o. twice daily. - Diovan 160 mg p.o. daily. Alcohol use disorder The pt has Korsakoff Syndrome. - Aricept. - Thiamine folate and multivitamins. - CIWA. Anemia Hgb stable. Anemia labs noted. - follow CBC. Malnutrition The pt has not been eating much. - dietary consult. - continue Ensure. DVT GI prophylaxis -SCDs -Lovenox 40 sq daily Discharge Planning Hopefully d/c to SNF vs rehab Wednesday Aime French DO Sep 25, 2017 15:19
[2017-09-26] VITALS (10 sets, daily range): BP systolic 122–162; BP diastolic 68–93; PULSE 68–104; RESP 16–20; TEMP 97.5–98.2; O2SAT 94–98
[2017-09-26] MEDS: levETIRAcetam 500 MG TAB PO SCH ×3 (02:11→18:02)
[2017-09-26] MEDS: PHENYTOIN SODIUM 100 MG CAP PO SCH ×3 (03:43→21:44)
[2017-09-26] MEDS: PHENYTOIN 50 MG CHEWABLE TAB PO SCH ×3 (03:43→21:44)
[2017-09-26] MEDS: CHLORHEXIDINE GLUCONATE 2 % 1 PACK (2 CLOTHS) TOP SCH (03:44)
[2017-09-26] MEDS: LEVOTHYROXINE SODIUM 112 MCG TAB PO SCH (05:49)
[2017-09-26] MEDS: SERTRALINE HCL 50 MG TAB PO SCH (08:57)
[2017-09-26] MEDS: FAMOTIDINE 20 MG TAB PO SCH ×2 (08:57→21:43)
[2017-09-26] MEDS: DOCUSATE SODIUM 50 MG/SENNA 8.6 MG TAB PO SCH ×2 (08:57→21:44)
[2017-09-26] MEDS: DONEPEZIL HCL 5 MG TAB PO SCH (08:57)
[2017-09-26] MEDS: METOPROLOL TARTRATE 100 MG TAB PO SCH ×2 (08:57→21:45)
[2017-09-26] MEDS: clonazePAM 0.5 MG TAB PO SCH ×2 (08:57→21:44)
[2017-09-26] MEDS: VALSARTAN 160 MG TAB PO SCH (08:58)
[2017-09-26] MEDS: ENOXAPARIN SODIUM 40 MG/0.4 ML SYRINGE SQ SCH (08:58)
[2017-09-26] MEDS: SODIUM CHLORIDE 0.9% FLUSH 10 ML FLUSH IV FLUSH SCH ×2 (08:58→21:45)
[2017-09-26 09:28] LABS: BICARBONATE 27.9 MEQ/L (21.0-32.0); BLOOD UREA NITROGEN LESS THAN 1 MG/DL (7-18); CALCIUM 8.2 MG/DL (8.5-10.1); CHLORIDE 93 MEQ/L (98-107); CREATININE 0.53 MG/DL (0.50-1.00); GLOMERULAR FILTRATION RATE 120 ML/MIN (>89); GLUCOSE,RANDOM 82 MG/DL (74-106); MAGNESIUM 1.3 MG/DL (1.5-2.5); SODIUM (NA) 131 MEQ/L (136-145)
[2017-09-26 09:29] LABS: PHOSPHORUS 1.6 MG/DL (2.5-4.9)
[2017-09-26 09:30] LABS: PHENYTOIN (DILANTIN) 9.4 MCG/ML (10.0-20.0)
[2017-09-26] MEDS: DEXT 5%-NACL 0.9% 1000 ML INJ 1,000 ML IV SCH (11:42)
[2017-09-26] MEDS ORDERED: POTASSIUM CHLORIDE 20 MEQ CONTROLLED RELEASE TAB PO ONE (13:30)
[2017-09-26] MEDS ORDERED: SODIUM PHOSPHATE INJ 30 MMOL in SODIUM CHLOR 0.9% 250 ML INJ 250 ML IV ONE (13:30)
--- NOTE | 2017-09-26 15:13 | HHI.PR ---
Subjective Remarks The patient was resting comfortably in bed. She said she had her ice cream. She said she would try to drink some of the Ensure. Discussed with her family at the bedside. Discussed with nursing. Objective Vitals Vital Signs Date Time Temp Pulse Resp B/P (MAP) Pulse Ox O2 Delivery O2 Flow Rate FiO2 09/26/17 12:02 98.0 70 20 149/84 (105) 94 09/26/17 10:07 75 09/26/17 08:57 98.0 71 18 161/89 (113) 96 09/26/17 04:00 98.2 68 18 154/81 (105) 98 09/26/17 00:24 78 09/26/17 00:00 98.1 83 16 162/93 (116) 94 09/25/17 20:04 73 09/25/17 20:00 98.0 77 16 124/73 (90) 98 09/25/17 17:03 98.4 70 14 134/73 (93) 95 I/O 09/25/17 09/25/17 09/25/17 09/26/17 09/26/17 09/26/17 07:00 15:00 23:00 07:00 15:00 23:00 Intake Total 984 ml 1000 ml 640 ml 4162 ml Balance 984 ml 1000 ml 640 ml 4162 ml Intake Oral 640 ml IV Total 984 ml 1000 ml 4162 ml # Voids 3 1 3 # Bowel Movements 0 Result Diagram: 09/25/17 0404 09/26/17 0810 Imaging Last Impressions Head CT 09/21/172122 Signed Impressions: CONCLUSION: 1. Findings suspicious for possible mass in the left mid parietal lobe. Recomm end MRI of the brain with and without contrast for further evaluation. Brain MRI 09/21/17 0000 Signed Impressions: CONCLUSION: 1. Right maxillary sinusitis. 2. The brain is normal in appearance. Chest X-Ray 09/20/172122 Signed Impressions: CONCLUSION: Perihilar and basilar atelectasis. No effusion. Elevated right hemidiaphragm. N o pneumothorax. Objective Remarks GENERAL: Well-nourished, well-developed patient. SKIN: Warm and dry. HEAD: Normocephalic. EYES: No scleral icterus. No injection or drainage. NECK: Supple, trachea midline. No JVD or lymphadenopathy. CARDIOVASCULAR: Regular rate and rhythm without murmurs, gallops, or rubs. RESPIRATORY: Breath sounds equal bilaterally. No accessory muscle use. GASTROINTESTINAL: Abdomen soft, non-tender, nondistended. NEURO EXAM: Awake and alert, following commands all extremities. Procedures Intubation/ extubation A/P Assessment and Plan Status epilepticus CT brain 09/21 with ?mass L mid parietal lobe. MRI 09/21 brain is normal. Findings consistent with right maxillary sinusitis. Loaded with fosphenytoin in the ED. Neurology consult appreciated. EEG 09/21Mild slowing consistent with mild encephalopathy. No seizure. - Phenytoin increased per neurology. Continue Keppra. - follow phenytoin levels. - seizure precautions, neuro checks. - PT/ OT. Awaiting rehab options. Acute respiratory failure Intubated for a airway protection. - oxygen and nebs as needed. - incentive spirometry. - encourage ambulation. Hypokalemia/ Hypomagnesemia/ Hypophosphatemia/ Hypoglycemia S/t decreased PO intake. - replete with IV and PO and monitor. - ADAT. Hypertension Well controlled. - Metoprolol 100 mg p.o. twice daily. - Diovan 160 mg p.o. daily. Alcohol use disorder The pt has Korsakoff Syndrome. - Aricept. - Thiamine folate and multivitamins. - CIWA. Anemia Hgb stable. Anemia labs noted. - follow CBC. Malnutrition The pt has not been eating much. Health Information Specialist recommendations appreciated. - continue Ensure. Add MVI. DVT GI prophylaxis -SCDs -Lovenox 40 sq daily Discharge Planning Hopefully d/c to SNF vs rehab Wednesday Aime French DO Sep 26, 2017 15:13
[2017-09-26] MEDS: MAGNESIUM SULFATE 1 GM PREMIX 100 ML IV SCH ×3 (15:21→17:45)
[2017-09-26] MEDS: MULTIVITAMIN TAB PO SCH (15:26)
[2017-09-27] VITALS (8 sets, daily range): BP systolic 108–121; BP diastolic 59–75; PULSE 71–84; RESP 20; TEMP 97.6–98.3; O2SAT 94–98
[2017-09-27] MEDS: levETIRAcetam 500 MG TAB PO SCH ×3 (01:59→17:56)
[2017-09-27] MEDS: PHENYTOIN 50 MG CHEWABLE TAB PO SCH ×2 (04:29→12:50)
[2017-09-27] MEDS: PHENYTOIN SODIUM 100 MG CAP PO SCH ×2 (04:30→12:51)
[2017-09-27] MEDS: LEVOTHYROXINE SODIUM 112 MCG TAB PO SCH (05:53)
[2017-09-27] MEDS: MULTIVITAMIN TAB PO SCH (08:07)
[2017-09-27] MEDS: SERTRALINE HCL 50 MG TAB PO SCH (08:07)
[2017-09-27] MEDS: VALSARTAN 160 MG TAB PO SCH (08:08)
[2017-09-27] MEDS: DOCUSATE SODIUM 50 MG/SENNA 8.6 MG TAB PO SCH (08:08)
[2017-09-27] MEDS: clonazePAM 0.5 MG TAB PO SCH (08:08)
[2017-09-27] MEDS: METOPROLOL TARTRATE 100 MG TAB PO SCH (08:08)
[2017-09-27] MEDS: FAMOTIDINE 20 MG TAB PO SCH (08:09)
[2017-09-27] MEDS: DONEPEZIL HCL 5 MG TAB PO SCH (08:09)
[2017-09-27] MEDS: ENOXAPARIN SODIUM 40 MG/0.4 ML SYRINGE SQ SCH (08:09)
[2017-09-27] MEDS: SODIUM CHLORIDE 0.9% FLUSH 10 ML FLUSH IV FLUSH SCH (08:09)
[2017-09-27 11:33] LABS: BICARBONATE 28.2 MEQ/L (21.0-32.0); CALCIUM 8.9 MG/DL (8.5-10.1); CREATININE 0.72 MG/DL (0.50-1.00); MAGNESIUM 1.9 MG/DL (1.5-2.5)
[2017-09-27 11:36] LABS: PHENYTOIN (DILANTIN) 8.5 MCG/ML (10.0-20.0)
[2017-09-27] MEDS ORDERED: POTASSIUM CHLORIDE 20 MEQ CONTROLLED RELEASE TAB PO ONE (12:15)
[2017-09-27] MEDS ORDERED: THERTAB15 PO (13:04)
[2017-09-27] MEDS ORDERED: DILA50CH PO (13:04)
[2017-09-27] MEDS ORDERED: DILA100C PO (13:04)
[2017-09-27] MEDS ORDERED: CLON0.5T PO (13:04)
--- NOTE | 2017-09-27 13:05 | HHI.DCPOC ---
Discharge Care Plan Diagnosis: (1) Malnutrition (2) Seizure (3) Alcohol related disease or syndrome (4) Korsakoff syndrome (5) Weakness Goals to Promote Your Health * To prevent worsening of your condition and complications * To maintain your health at the optimal level Directions to Meet Your Goals Take your medications as prescribed Follow your dietary instruction Follow activity as directed Keep your appointments as scheduled Take your immunizations and boosters as scheduled If your symptoms worsen call your PCP, if no PCP go to Urgent Care Center or Emergency Room Smoking is Dangerous to Your Health. Avoid second hand smoke Call the 24-hour hour crisis hotline for domestic abuse at Aime French DO Sep 27, 2017 13:05
--- NOTE | 2017-09-27 13:10 | HHI.PR ---
Subjective Remarks The patient said that she felt a lot better. She said she had some of her breakfast and some of the Ensure. She said that she has not had any further seizure activity. Discussed with case management. Objective Vitals Vital Signs Date Time Temp Pulse Resp B/P (MAP) Pulse Ox O2 Delivery O2 Flow Rate FiO2 09/27/17 12:03 98.0 79 20 108/59 (75) 98 09/27/17 08:36 98.3 76 20 121/71 (88) 95 09/27/17 08:00 76 09/27/17 04:31 97.9 80 20 121/73 (89) 94 09/27/17 04:03 72 09/27/17 01:06 97.6 84 20 113/75 (88) 96 09/27/17 00:02 75 09/26/17 20:39 97.8 85 20 122/75 (91) 96 09/26/17 19:52 104 09/26/17 18:07 71 09/26/17 16:38 97.5 70 20 139/68 (91) 95 I/O 09/26/17 09/26/17 09/26/17 09/27/17 09/27/17 09/27/17 06:59 14:59 22:59 06:59 14:59 22:59 Intake Total 640 ml 4162 ml 720 ml 360 ml Balance 640 ml 4162 ml 720 ml 360 ml Intake Oral 640 ml 720 ml 360 ml IV Total 4162 ml # Voids 3 3 # Bowel Movements 0 0 Result Diagram: 09/25/17 0404 09/27/17 0951 Imaging Last Impressions Head CT 09/21/172122 Signed Impressions: CONCLUSION: 1. Findings suspicious for possible mass in the left mid parietal lobe. Recomm end MRI of the brain with and without contrast for further evaluation. Brain MRI 09/21/17 0000 Signed Impressions: CONCLUSION: 1. Right maxillary sinusitis. 2. The brain is normal in appearance. Chest X-Ray 09/20/172122 Signed Impressions: CONCLUSION: Perihilar and basilar atelectasis. No effusion. Elevated right hemidiaphragm. N o pneumothorax. Objective Remarks GENERAL: Well-nourished, well-developed patient. SKIN: Warm and dry. HEAD: Normocephalic. EYES: No scleral icterus. No injection or drainage. NECK: Supple, trachea midline. No JVD or lymphadenopathy. CARDIOVASCULAR: Regular rate and rhythm without murmurs, gallops, or rubs. RESPIRATORY: Breath sounds equal bilaterally. No accessory muscle use. GASTROINTESTINAL: Abdomen soft, non-tender, nondistended. NEURO EXAM: Awake and alert, following commands all extremities. Procedures Intubation/ extubation A/P Assessment and Plan Status epilepticus CT brain 09/21 with ?mass L mid parietal lobe. MRI 09/21 brain is normal. Findings consistent with right maxillary sinusitis. Loaded with fosphenytoin in the ED. Neurology consult appreciated. EEG 09/21Mild slowing consistent with mild encephalopathy. No seizure. - Phenytoin increased per neurology. Continue Keppra. - follow phenytoin levels. - seizure precautions, neuro checks. - PT/ OT. Awaiting rehab options. - outpt follow-up with neurology. Acute respiratory failure Intubated for a airway protection. Currently breathing well on room air. - oxygen and nebs as needed. - incentive spirometry. - encourage ambulation. Hypokalemia/ Hypomagnesemia/ Hypophosphatemia/ Hypoglycemia S/t decreased PO intake. - repleted with IV and PO. Seems resolved. - ADAT. Hypertension Well controlled. - Metoprolol 100 mg p.o. twice daily. - Diovan 160 mg p.o. daily. Alcohol use disorder The pt has Korsakoff Syndrome. - Aricept. - Thiamine folate and multivitamins. - CIWA. Anemia Hgb stable. Anemia labs noted. - follow CBC. Malnutrition The pt has not been eating much. Community Services Officer recommendations appreciated. - continue Ensure. Added MVI. DVT GI prophylaxis -SCDs -Lovenox 40 sq daily Discharge Planning D/c to SNF vs rehab when bed available Aime French DO Sep 27, 2017 13:10
--- NOTE | 2017-09-27 13:13 | HHI.DS ---
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 The patient then had seizure activity noted that was described as generalized tonic-clonic seizure activity. The patient has a prior history of seizures, however according to the she had not had a seizure for a couple of years. Patient has a history of early onset of dementia and alcohol use disorder. She did drink alcohol today. The patient was postictal upon ambulance services arrival and then had seizure activity that lasted 2 minutes. Versed 2 mg was administered IM. The patient was again postictal, however she experienced seizure activity again and was given another versed 2 mg IV. The patient then proceeded to vomit and aspirate according to ambulance services with rhonchi and lower lobes. The patient's O2 saturation on nonrebreather was 90% and the patient was intubated with a 7.0 endotracheal tube that is 23 at the teeth on arrival. CBC/BMP: 09/25/17 0404 09/27/17 0951 Significant Findings Laboratory Tests Test 09/25/17 04:04 09/26/17 08:10 09/27/17 09:51 Red Blood Count 3.05 MIL/MM3 (4.00-5.30) Hemoglobin 10.5 GM/DL (11.6-15.3) Hematocrit 29.9 % (35.0-46.0) Mean Corpuscular Hemoglobin 34.5 PG (27.0-34.0) Blood Urea Nitrogen 3 MG/DL (7-18) LESS THAN 1 MG/DL (7-18) 4 MG/DL (7-18) Creatinine 0.47 MG/DL (0.50-1.00) Random Glucose 122 MG/DL (74-106) Calcium Level 7.8 MG/DL (8.5-10.1) 8.2 MG/DL (8.5-10.1) Potassium Level 3.3 MEQ/L (3.5-5.1) Phenytoin (Dilantin) Level 7.7 MCG/ML (10.0-20.0) 9.4 MCG/ML (10.0-20.0) 8.5 MCG/ML (10.0-20.0) Phosphorus Level 1.6 MG/DL (2.5-4.9) Magnesium Level 1.3 MG/DL (1.5-2.5) Sodium Level 131 MEQ/L (136-145) 135 MEQ/L (136-145) Chloride Level 93 MEQ/L (98-107) 97 MEQ/L (98-107) Estimat Glomerular Filtration Rate 84 ML/MIN (>89) Imaging Last Impressions Head CT 09/21/172122 Signed Impressions: CONCLUSION: 1. Findings suspicious for possible mass in the left mid parietal lobe. Recomm end MRI of the brain with and without contrast for further evaluation. Brain MRI 09/21/17 0000 Signed Impressions: CONCLUSION: 1. Right maxillary sinusitis. 2. The brain is normal in appearance. Chest X-Ray 09/20/172122 Signed Impressions: CONCLUSION: Perihilar and basilar atelectasis. No effusion. Elevated right hemidiaphragm. N o pneumothorax. PE at Discharge GENERAL: Well-nourished, well-developed patient. SKIN: Warm and dry. HEAD: Normocephalic. EYES: No scleral icterus. No injection or drainage. NECK: Supple, trachea midline. No JVD or lymphadenopathy. CARDIOVASCULAR: Regular rate and rhythm without murmurs, gallops, or rubs. RESPIRATORY: Breath sounds equal bilaterally. No accessory muscle use. GASTROINTESTINAL: Abdomen soft, non-tender, nondistended. NEURO EXAM: Awake and alert, following commands all extremities. Hospital Course Status epilepticus CT brain 09/21 with ?mass L mid parietal lobe. MRI 09/21 brain is normal; Findings consistent with right maxillary sinusitis. Loaded with fosphenytoin in the ED. Neurology was consulted. EEG 09/21: Mild slowing consistent with mild encephalopathy; No seizure activity. Phenytoin increased per neurology. We continued Keppra. We followed phenytoin levels. She was placed on seizure precautions, neuro checks. She worked with PT/ OT. Case management was consulted for assistance with discharge planning. The pt will have outpt follow- up with neurology. Acute respiratory failure The pt was intubated for airway protection. She did well following extubation. The pt received oxygen and nebs as needed. She used incentive spirometry and we encouraged ambulation. Hypokalemia/ Hypomagnesemia/ Hypophosphatemia/ Hypoglycemia The pt received PO and IV repletion. Her diet was advanced. We added Ensure with meals. Her electrolytes normalized. Hypertension The pt was continued on her home medications. Alcohol use disorder The pt has Korsakoff Syndrome. She was continued on Aricept. She received thiamine, folate and multivitamins. She was placed on CIWA protocol. Pt Condition on Discharge: Stable Discharge Disposition: Rehab Inpatient Discharge Time: > 30 minutes Discharge Instructions DIET: Follow Instructions for: As Tolerated, No Restrictions Additional Diet Instructions: Add Ensure with meals Activities you can perform: Weight Bearing as Caterina Follow up Referrals: Neurology - 1 Week with Val Hallman MD PCP Follow-up - 1 Week New Orders: BASIC METABOLIC PROF - 2-3 Days MAGNESIUM (MG) - 2-3 Days PHENYTOIN (DILANTIN) - 2-3 Days New Medications: Multivitamin with Folic Acid (Thera Tablet) 400 Mcg Tablet 1 TAB PO DAILY for Vitamin for 30 Days, #30 TAB Phenytoin Chew (Dilantin Infatabs) 50 Mg Chw 50 MG PO Q8H for Seizure Control for 30 Days, EA Phenytoin Extended (Dilantin) 100 Mg Cap 100 MG PO Q8H for Seizure Control for 30 Days, #90 CAP Continued Medications: Clonazepam (Clonazepam) 0.5 Mg Tab 0.5 MG PO BID for Anxiety, #10 TAB 0 Refills (This prescription has been renewed ) Donepezil HCl (Aricept) 5 Mg Tablet 5 MG PO DAILY for health for 30 Days, #30 TAB Levetiracetam (Levetiracetam) 500 Mg Tab 500 MG PO TID for Control Seizures, #60 TAB 0 Refills Levothyroxine (Levothyroxine) 112 Mcg Tab 112 MCG PO DAILY for Thyroid, #30 TAB 0 Refills Metoprolol Tartrate (Metoprolol Tartrate) 100 Mg Tab 100 MG PO BID, #60 TAB 0 Refills Ondansetron (Ondansetron) 8 Mg Tab 8 MG PO TID for Nausea/Vomiting, TAB 0 Refills Sertraline (Sertraline) 50 Mg Tab 50 MG PO DAILY, #30 TAB 0 Refills Valsartan (Valsartan) 160 Mg Tab 160 MG PO DAILY, #30 TAB 0 Refills Aime French DO Sep 27, 2017 13:13
== END 2017-09-27 18:30 | DRG 208 ==
LOC: NEPC 21:13 → NEDA 22:51 → HIMN 09-21 01:25 → N05B 09-24 19:39
PROVIDERS: ADMIT Hospitalist; ATTEND Hospitalist
PROC: 5A1945Z Respiratory Ventilation, 24-96 Consecutive Hours (ICD-10-PCS; principal; 2017-09-20)
PROC: 0BH17EZ Insertion of Endotracheal Airway into Trachea, Via Natural or Artificial Opening (ICD-10-PCS; 2017-09-20)
DX: J96.00 Acute respiratory failure, unspecified whether with hypoxia or hypercapnia (principal); E46 Unspecified protein-calorie malnutrition; F10.99 Alcohol use, unspecified with unspecified alcohol-induced disorder; F03.90 Unspecified dementia, unspecified severity, without behavioral disturbance, psychotic disturbance, mood disturbance, and anxiety; E83.42 Hypomagnesemia; J98.11 Atelectasis; G40.901 Epilepsy, unspecified, not intractable, with status epilepticus; E83.39 Other disorders of phosphorus metabolism; D64.9 Anemia, unspecified; E03.9 Hypothyroidism, unspecified; I10 Essential (primary) hypertension; F43.22 Adjustment disorder with anxiety; E87.6 Hypokalemia; F04 Amnestic disorder due to known physiological condition; E16.2 Hypoglycemia, unspecified; J32.9 Chronic sinusitis, unspecified; F29 Unspecified psychosis not due to a substance or known physiological condition; Z88.0 Allergy status to penicillin; Z88.8 Allergy status to other drugs, medicaments and biological substances; Z91.040 Latex allergy status
CPT/HCPCS: 36600; 43753; 51702; 70450; 70553; 71045; 80048; 80053; 80177; 80185; 80307; 81001; 82140; 82550; 82552; 82607; 82728; 82746; 82805; 83540; 83550; 83605; 83690; 83735; 83880; 84100; 84132; 84484; 85025; 85027; 85610; 85730; 87641; 93005; 94002; 94003; 94150; 95819; 96365; A9579; J1100; J1650; J1953; J2060; J3411; J3475; J3480; J7030; J7040; J7042; J7050; J7120; Q2009